=== PATIENT | female | born 1935 | race Caucasian/White ===

== ENCOUNTER → 2018-02-09 07:54 | Outpatient (CLI) | payer MEDICARE, SELFPAY ==
[2018-02-09 08:43] LABS: Hemoglobin A1c 6.1 % (4.2-6.3)
[2018-02-09 08:51] LABS: AST(SGOT) 18 U/L (15-37); Alanine Aminotransfer ALT/SGPT 24 U/L (13-56); Albumin, Serum 3.7 g/dL (3.2-5.0); Alkaline Phosphatase 59 U/L (45-117); Anion Gap 6 (5-15); BUN 10 mg/dL (7-18); BUN/Creat Ratio 16.3 RATIO (10-20); Calcium,Total 8.8 mg/dL (8.5-10.1); Chloride 101 mmol/L (98-107); Creatinine, Serum 0.61 mg/dL (0.55-1.02); EST Glomerular Filtration Rate 99 mL/min (>60); Est Glom Filt Rate - Afr Amer 120 mL/min (>60); Globulin 3.7 g/dL (2.2-4.2); Glucose 104 mg/dL (74-106); Protein, Total 7.4 g/dL (6.4-8.2); Sodium Level 137 mmol/L (136-145)
== END ==
PROVIDERS: Family Provider Internal Medicine; PCP Internal Medicine; Visit Provider Internal Medicine
DX: E11.9 Type 2 diabetes mellitus without complications (principal); E78.5 Hyperlipidemia, unspecified
CPT/HCPCS: 36415; 80053; 83036

== ENCOUNTER → 2018-05-21 10:28 | Outpatient (CLI) | payer MEDICARE, SELFPAY ==
[2018-05-21 11:23] LABS: Microalbumin,Random Urine 10.9 mg/L (NO RANGE EST.); Microalbumin:Creatinine Ratio 50.9 mg/g CRE (<30 mg/g CRE)
[2018-05-21 11:30] LABS: Hemoglobin A1c 6.2 % (4.2-6.3)
== END ==
PROVIDERS: Family Provider Internal Medicine; PCP Internal Medicine; Visit Provider Nurse Practitioner Family
DX: E11.9 Type 2 diabetes mellitus without complications (principal)
CPT/HCPCS: 36415; 82043; 82570; 83036

== ENCOUNTER → 2018-10-01 07:44 | Outpatient (CLI) | payer MEDICARE, SELFPAY ==
[2018-07-02 10:40] VITALS: BMI 29.7
[2018-10-01 09:04] LABS: Hemoglobin A1c 6.4 % (4.2-6.3)
[2018-10-01 09:14] LABS: ALB/GLOB Ratio 1.1 RATIO (0.9-2.4); AST(SGOT) 16 U/L (15-37); Alanine Aminotransfer ALT/SGPT 21 U/L (13-56); Albumin, Serum 3.7 g/dL (3.2-5.0); Alkaline Phosphatase 64 U/L (45-117); Anion Gap 11 (5-15); BUN 16 mg/dL (7-18); BUN/Creat Ratio 21.1 RATIO (10-20); Calcium,Total 8.7 mg/dL (8.5-10.1); Chloride 102 mmol/L (98-107); Cholesterol 157 mg/dL (200); Creatinine, Serum 0.76 mg/dL (0.55-1.02); EST Glomerular Filtration Rate 78 mL/min (>60); Est Glom Filt Rate - Afr Amer 94 mL/min (>60); Globulin 3.4 g/dL (2.2-4.2); Glucose 89 mg/dL (74-106); High Density Lipoprotein 47 mg/dL; Potassium 3.8 mmol/L (3.5-5.1); Protein, Total 7.1 g/dL (6.4-8.2); Sodium Level 140 mmol/L (136-145); Triglycerides 84 mg/dL; Very Low Density Lipoprotein 17 mg/dL (5-40)
== END ==
PROVIDERS: Family Provider Internal Medicine; PCP Internal Medicine; Referring Provider Internal Medicine; Visit Provider Internal Medicine
DX: E11.9 Type 2 diabetes mellitus without complications (principal); I25.10 Atherosclerotic heart disease of native coronary artery without angina pectoris
CPT/HCPCS: 36415; 80053; 80061; 83036

== ENCOUNTER → 2019-03-27 | Outpatient (CLI) | payer MEDICARE, SELFPAY ==
[2019-03-25 09:47] VITALS: BMI 27.8
--- NOTE | 2019-03-27 08:56 | RAD_ITS ---
STUDY: X-RAY CHEST REASON FOR EXAM: Female, 83 years old. COPD. TECHNIQUE: Single AP portable view of the chest. COMPARISON: Comparison is made with prior study dated September 23, 2017. FINDINGS: Hyperinflation. Mild increased linear markings at the lung bases slightly more prominent on the left side suggestive of a linear atelectasis and/or scarring. Blunting of the left costophrenic angle. Normal size heart. Normal mediastinum and ronda. Normal visualized pulmonary arteries. There is atherosclerotic calcification of the aortic arch with tortuosity. There are diffuse degenerative changes of the visualized thoracic spine. Mild dextroscoliosis. Normal visualized ribs, clavicles, and shoulders. There is no demonstrated abnormality of the visualized soft tissue structures of the upper abdomen. RAD/Chest 1 View IMPRESSION: Hyperinflation. Mild degree of increased markings at the lung bases slightly more prominent on the left side suggestive of linear atelectasis and/or scarring. Electronically Signed: Andrey Spangler, at 15:39 EDT , Service support ,
--- NOTE | 2019-03-27 15:17 | PFTCOMP ---
COMPLETE PULMONARY FUNCTION TEST INTERPRETATION Brief HPI: Patient is an 83 year old female, currently under the care of Dr. Jefferson, who presents to [facility] for complete pulmonary function tests secondary to diagnosis of COPD. Respiratory therapist reports good effort and reproducible results. Interpretation: Forced expiration spirometry shows a mild large airways obstructive ventilatory defect with an FEV1 of 101% predicted. There is no significant bronchodilator response by strict ATS criteria. Spirograms are of good quality and plateau slowly, indicating slowly emptying areas of the lungs. The respiratory flow volume loop shows decreased expiratory flow rates at all lung volumes consistent with airway obstruction. Lung volumes by body plethysmography show a normal total lung capacity at 4.04 L, 115% predicted. All other lung volumes are within normal limits. Diffusion capacity by carbon monoxide is normal at 95% predicted. The airway resistance is slightly elevated. No previous pulmonary function tests were available for review. Impression: Irreversible mild large airways obstructive ventilatory defect with preserved diffusion capacity, in a pattern consistent with chronic bronchitis.
== END | disposition home or self-care (01) ==
LOC: PSN 07:46
PROVIDERS: Family Provider Internal Medicine; PCP Internal Medicine; Referring Provider Internal Medicine; Visit Provider Internal Medicine
DX: J44.9 Chronic obstructive pulmonary disease, unspecified (principal)
CPT/HCPCS: 71045; 94060; 94726; 94729

== ENCOUNTER → 2019-07-18 08:50 | Outpatient (CLI) | payer MEDICARE, SELFPAY ==
[2019-07-02 08:41] VITALS: BMI 27.8
--- NOTE | 2019-07-18 08:52 | ECHOD_ITS ---
Reason For Study: HTN Procedure This was a 2D Doppler, Color Flow transthoracic echocardiogram. Exam performed in department. Left Ventricle Normal LV size. Left ventricular systolic function is normal. The estimated ejection fraction is 60 %. Stage 2 diastolic dysfunction. No regional wall motion abnormalities noted. Right Ventricle Normal RV size. Normal systolic function. Atria Normal left atrium. Normal right atrium. Mitral Valve Normal mitral valve. Mild (1+) mitral valve insufficiency. Tricuspid Valve Normal tricuspid valve. Mild tricuspid valve insufficiency. Pulmonary artery systolic pressure is 24 mmHg. Aortic Valve Trisinus/trileaflet aortic valve. Pulmonic Valve Normal pulmonic valve. Great Vessels Calcified aortic root. The pulmonary artery is normal size. Normal inferior vena cava. Pericardium/Pleural No pericardial effusion. MMode/2D Measurements & Calculations LVIDd: 3.7 cm IVSd: 1.1 cm LVOT diam: 2.0 cm LVIDs: 2.4 cm LVPWd: 1.1 cm LVOT area: 3.0 cm2 RVDd: 3.0 cm FS: 35.6 % Ao root diam: 3.0 cm LAV(MOD-bp): 31.4 ml LA A4 area: 12.0 cm2 LAV(MOD-bp) Indexed: 19.9 ml/m2 LAV(MOD-sp2): 37.4 ml LAV(MOD-sp4): 26.2 ml LA dimension(2D): 3.9 cm RA A4 area: 9.7 cm2 Time Measurements MV dec time: 0.33 sec Doppler Measurements & Calculations MV E max tod: 74.8 cm/sec Lat Peak E' Tod: 5.5 cm/sec Med Peak E' Tod: 4.8 cm/sec MV A max tod: 93.7 cm/sec E/E' lat: 13.6 E/E' med: 15.5 MV E/A: 0.80 Ao V2 max: 164.5 cm/sec LV V1 max: 105.6 cm/sec SV(LVOT): 75.2 ml Ao max P.8 mmHg LV V1 max P.5 mmHg Ao V2 mean: 120.3 cm/sec LV V1 mean P.4 mmHg Ao mean P.3 mmHg LV V1 mean: 73.2 cm/sec Ao V2 VTI: 40.2 cm LV V1 VTI: 24.9 cm KALEB(I,D): 1.9 cm2 KALEB(V,D): 1.9 cm2 PA V2 max: 131.8 cm/sec TR max tod: 221.9 cm/sec TR max P.8 mmHg Interpretation Summary Normal LV size. Left ventricular systolic function is normal. The estimated ejection fraction is 60 %. Stage 2 diastolic dysfunction. Ordering Physician: Ora Jefferson Referring Physician: Ora Jefferson Performed By: Karen Kang, YONIS, RVT
== END ==
PROVIDERS: Family Provider Internal Medicine; PCP Internal Medicine; Referring Provider Internal Medicine; Visit Provider Internal Medicine
DX: I25.10 Atherosclerotic heart disease of native coronary artery without angina pectoris (principal); I10 Essential (primary) hypertension
CPT/HCPCS: 93306

== ENCOUNTER → 2019-09-26 11:00 | Outpatient (CLI) | payer MEDICARE, SELFPAY ==
[2019-09-09 14:51] VITALS: BMI 27.8
== END ==
PROVIDERS: Family Provider Internal Medicine; PCP Internal Medicine; Referring Provider Internal Medicine; Visit Provider Internal Medicine
DX: G47.30 Sleep apnea, unspecified (principal)
CPT/HCPCS: 98960; G0463

== ENCOUNTER → 2019-10-07 10:49 | Outpatient (CLI) | payer MEDICARE, SELFPAY ==
[2019-10-07 10:34] VITALS: BMI 27.8
[2019-10-07 12:01] LABS: Absolute Lymphocyte Count 1.38 X10^3/uL (0.83-4.51); Absolute Neutrophil Count 3.6 X10^3/uL (2.0-7.7); Basophil# 0.03 X10^3/uL; Basophil% 0.5 % (0-1); Eosinophil# 0.18 X10^3/uL; Eosinophils% 3.1 % (0-5); Hematocrit 40.3 % (37-47); Hemoglobin 13.1 g/dL (12.0-15.0); Lymphocyte # 1.38 X10^3/ul (4.0); Lymphocyte % 23.9 % (19-41); Mean Corp Hgb Conc 32.5 g/dL (32-36); Mean Corpuscular Hgb 29.6 pg (27.0-32.0); Mean Corpuscular Volume 91.2 fL (81-99); Monocyte# 0.53 X10^3/uL; Monocyte% 9.2 % (0-10); NRBC Flagged by Analyzer 0 % (0-5); Neutrophil # 3.63 X10^3/uL (2.7-7.7); Platelet Count 243 K/mm3 (150-450); RBC Distribution Width CV 13.4 % (11.6-14.6); RBC Distribution Width SD 44.7 fl (35.1-43.9); Red Blood Count 4.42 M/mm3 (4.2-5.4); White Blood Count 5.8 K/mm3 (4.4-11.0)
[2019-10-07 12:19] LABS: ALB/GLOB Ratio 1.1 RATIO (0.9-2.4); AST(SGOT) 19 U/L (15-37); Alanine Aminotransfer ALT/SGPT 34 U/L (13-56); Albumin, Serum 3.7 g/dL (3.2-5.0); Alkaline Phosphatase 62 U/L (45-117); Anion Gap 7 (5-15); BUN 13 mg/dL (7-18); BUN/Creat Ratio 17.5 RATIO (10-20); Chloride 100 mmol/L (98-107); Cholesterol 169 mg/dL (200); Creatinine, Serum 0.74 mg/dL (0.55-1.02); EST Glomerular Filtration Rate 79 mL/min (>60); Est Glom Filt Rate - Afr Amer 96 mL/min (>60); Globulin 3.3 g/dL (2.2-4.2); Glucose 93 mg/dL (74-106); Hemoglobin A1c 7.4 % (4.2-6.3); High Density Lipoprotein 59 mg/dL; Potassium 4.3 mmol/L (3.5-5.1); Sodium Level 137 mmol/L (136-145); Triglycerides 118 mg/dL; Very Low Density Lipoprotein 24 mg/dL (5-40)
[2019-10-07 12:41] LABS: Microalbumin,Random Urine 26.3 mg/L (NO RANGE EST.); Microalbumin:Creatinine Ratio 23.1 mg/g CRE (<30 mg/g CRE)
== END ==
PROVIDERS: Family Provider Internal Medicine; PCP Internal Medicine; Visit Provider Internal Medicine
DX: E11.9 Type 2 diabetes mellitus without complications (principal); I10 Essential (primary) hypertension
CPT/HCPCS: 36415; 80053; 80061; 82043; 82570; 83036; 85025

== ENCOUNTER → 2020-01-14 15:06 | Outpatient (CLI) | payer MEDICARE, SELFPAY ==
[2019-10-07 10:34] VITALS: BMI 27.8
[2020-01-14 16:54] LABS: Absolute Neutrophil Count 5.5 X10^3/uL (2.0-7.7); Basophil# 0.04 X10^3/uL; Basophil% 0.5 % (0-1); Eosinophil# 0.06 X10^3/uL; Eosinophils% 0.8 % (0-5); Hematocrit 42.4 % (37-47); Lymphocyte % 20.6 % (19-41); Mean Corpuscular Hgb 29.9 pg (27.0-32.0); Mean Corpuscular Volume 90.4 fL (81-99); Mean Platelet Vol. 8.5 fl (6.2-12.0); Monocyte# 0.58 X10^3/uL; Monocyte% 7.5 % (0-10); NRBC Flagged by Analyzer 0 % (0-5); Neutrophil # 5.47 X10^3/uL (2.7-7.7); Neutrophil % 70.2 % (47-70); Platelet Count 296 K/mm3 (150-450); RBC Distribution Width CV 12.9 % (11.6-14.6); RBC Distribution Width SD 42.6 fl (35.1-43.9); Red Blood Count 4.69 M/mm3 (4.2-5.4); White Blood Count 7.8 K/mm3 (4.4-11.0)
[2020-01-14 17:22] LABS: ALB/GLOB Ratio 1.1 RATIO (0.9-2.4); AST(SGOT) 21 U/L (15-37); Alanine Aminotransfer ALT/SGPT 36 U/L (13-56); Albumin, Serum 3.9 g/dL (3.2-5.0); Alkaline Phosphatase 59 U/L (45-117); Anion Gap 7 (5-15); BUN 22 mg/dL (7-18); BUN/Creat Ratio 34.9 RATIO (10-20); Calcium,Total 9.3 mg/dL (8.5-10.1); Chloride 97 mmol/L (98-107); Creatinine, Serum 0.63 mg/dL (0.55-1.02); EST Glomerular Filtration Rate 96 mL/min (>60); Est Glom Filt Rate - Afr Amer 116 mL/min (>60); Globulin 3.5 g/dL (2.2-4.2); Glucose 137 mg/dL (74-106); Potassium 3.7 mmol/L (3.5-5.1); Protein, Total 7.4 g/dL (6.4-8.2); Sodium Level 134 mmol/L (136-145)
[2020-01-14 17:30] LABS: Hemoglobin A1c 6.7 % (4.2-6.3)
== END ==
PROVIDERS: PCP Internal Medicine; Referring Provider Internal Medicine; Visit Provider Internal Medicine
DX: E11.9 Type 2 diabetes mellitus without complications (principal); G47.30 Sleep apnea, unspecified
CPT/HCPCS: 36415; 80053; 83036; 85025

== ENCOUNTER → 2020-04-20 | Outpatient (CLI) | payer MEDICARE, SELFPAY ==
[2020-04-15 09:16] VITALS: BMI 27.8
--- NOTE | 2020-04-20 09:00 | EKG12_ITS ---
Test Reason : SOB Blood Pressure : / mmHG Vent. Rate : 062 BPM Atrial Rate : 062 BPM P-R Int : 186 ms QRS Dur : 092 ms QT Int : 406 ms P-R-T Axes : 064 001 073 degrees QTc Int : 412 ms Normal sinus rhythm Normal ECG Confirmed by PETER DALEY, JEFF ([id number]), editor news RAMAKRISHNA KWONG ([id number]) on 04/21/2020 10:07:51 AM Referred By: Ora Jefferson Confirmed By:JEFF GREEN MD
== END | disposition home or self-care (01) ==
LOC: PSN 09:00
PROVIDERS: PCP Internal Medicine; Referring Provider Internal Medicine; Visit Provider Internal Medicine
DX: I10 Essential (primary) hypertension (principal); I25.10 Atherosclerotic heart disease of native coronary artery without angina pectoris
CPT/HCPCS: 93005

== ENCOUNTER → 2020-04-24 15:01 | Outpatient (CLI) | payer MEDICARE, SELFPAY ==
[2020-04-24 14:26] VITALS: BMI 29.9
[2020-04-24 17:22] LABS: Anion Gap 5 (5-15); BUN 14 mg/dL (7-18); BUN/Creat Ratio 24.5 RATIO (10-20); Calcium,Total 9.4 mg/dL (8.5-10.1); Chloride 102 mmol/L (98-107); Creatinine, Serum 0.57 mg/dL (0.55-1.02); EST Glomerular Filtration Rate 107 mL/min (>60); Est Glom Filt Rate - Afr Amer 130 mL/min (>60); Glucose 132 mg/dL (74-106); Sodium Level 138 mmol/L (136-145)
[2020-04-24 18:50] LABS: BNP,B-Type NATRIURETIC PEPTIDE 49.4 pg/mL (0-100)
== END ==
PROVIDERS: PCP Internal Medicine; Referring Provider Internal Medicine Cardiovascular Disease; Visit Provider Internal Medicine Cardiovascular Disease
DX: R06.00 Dyspnea, unspecified (principal)
CPT/HCPCS: 36415; 80048; 83880

== ENCOUNTER → 2020-07-29 09:19 | Outpatient (CLI) | payer MEDICARE, SELFPAY ==
[2020-07-15 10:06] VITALS: BMI 29.7
--- NOTE | 2020-07-29 09:27 | BD_ITS ---
STUDY: DUAL ENERGY X-RAY ABSORPTIOMETRY / DXA REASON FOR EXAM: Female, 84 years old. 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 COMPARISON: None. FINDINGS: Lumbar Spine (L1-L4): g/cm2 (1.242) / T-score (0.3) / Z-score (2.2) Findings are suggestive of normal bone density with a low fracture risk. Left Femur Total: g/cm2 (0.898) / T-score (-0.9) / Z-score (1.3) Left Femoral Neck: g/cm2 (0.868) / T-score (-1.2) / Z-score (1.1) Right Femur Total: g/cm2 (0.883) / T-score (-1.0) / Z-score (1.2) Right Femoral Neck: g/cm2 (0.783) / T-score (-1.8) / Z-score (0.5) BD/Dexa Bone Density Study IMPRESSION: The patient is considered osteopenic as outlined below according to World Jamin Organization (WHO) criteria with a moderate fracture risk. Reference Information: The T-score is the number of standard deviations above or below the standard which is normal for young adults at their peak bone mineral density. The World Health Organization (WHO) interprets the T-scores as follows: Above -1 Normal bone density Between -1 and -2.5 Osteopenia Equal to / or below -2.5 Osteoporosis As a practical clinical guideline, osteopenia may be graded as follows: Mild -1 through -1.5 Moderate -1.6 through -2.0 Severe -2.1 through -2.4 The Z-score is the number of standard deviations above or below age-matched controls. A Z-score of less than -1.5 would be considered abnormal. References: 1. NIH Osteoporosis and Related Bone Diseases http://www.osteo.org 2. International Society for Clinical Densitometry http://www.iscd.org 3. National Osteoporosis Foundation http://www.nof.org Electronically Signed: Andrey Spangler, at 13:45 EDT , Service support ,
== END ==
PROVIDERS: PCP Internal Medicine; Referring Provider Internal Medicine; Visit Provider Internal Medicine
DX: Z78.0 Asymptomatic menopausal state (principal)
CPT/HCPCS: 77080

== ENCOUNTER → 2020-10-14 11:01 | Outpatient (CLI) | payer MEDICARE, SELFPAY ==
[2020-10-14 10:30] VITALS: BMI 32.0
[2020-10-14 13:18] LABS: Anion Gap 6 (5-15); BUN 14 mg/dL (7-18); BUN/Creat Ratio 21.6 RATIO (10-20); Calcium,Total 9.7 mg/dL (8.5-10.1); Chloride 100 mmol/L (98-107); Cholesterol 176 mg/dL (200); Creatinine, Serum 0.65 mg/dL (0.55-1.02); EST Glomerular Filtration Rate 93 mL/min (>60); Est Glom Filt Rate - Afr Amer 112 mL/min (>60); Glucose 122 mg/dL (74-106); High Density Lipoprotein 57 mg/dL; Potassium 4.2 mmol/L (3.5-5.1); Sodium Level 135 mmol/L (136-145); Triglycerides 179 mg/dL; Very Low Density Lipoprotein 36 mg/dL (5-40)
== END ==
PROVIDERS: PCP Internal Medicine; Referring Provider Internal Medicine; Visit Provider Internal Medicine
DX: I10 Essential (primary) hypertension (principal); I25.10 Atherosclerotic heart disease of native coronary artery without angina pectoris
CPT/HCPCS: 36415; 80048; 80061

== ENCOUNTER → 2021-01-12 11:27 | Outpatient (CLI) | payer MEDICARE, SELFPAY ==
[2021-01-12 10:50] VITALS: BMI 32.2
[2021-01-12 15:02] LABS: Absolute Lymphocyte Count 1.64 X10^3/uL (0.83-4.51); Absolute Neutrophil Count 6.9 X10^3/uL (2.0-7.7); Basophil# 0.05 X10^3/uL; Basophil% 0.5 % (0-1); Eosinophils% 2.1 % (0-5); Hematocrit 43.9 % (37-47); Hemoglobin 14.4 g/dL (12.0-15.0); Lymphocyte # 1.64 X10^3/ul (4.0); Lymphocyte % 17.4 % (19-41); Mean Corp Hgb Conc 32.8 g/dL (32-36); Mean Corpuscular Hgb 29.7 pg (27.0-32.0); Mean Corpuscular Volume 90.5 fL (81-99); Mean Platelet Vol. 8.8 fl (6.2-12.0); Monocyte# 0.58 X10^3/uL; Monocyte% 6.2 % (0-10); NRBC Flagged by Analyzer 0 % (0-5); Neutrophil % 73.5 % (47-70); Platelet Count 336 K/mm3 (150-450); RBC Distribution Width CV 12.8 % (11.6-14.6); RBC Distribution Width SD 42.3 fl (35.1-43.9); Red Blood Count 4.85 M/mm3 (4.2-5.4); White Blood Count 9.4 K/mm3 (4.4-11.0)
[2021-01-12 15:31] LABS: Microalbumin,Random Urine 24.5 mg/L (NO RANGE EST.); Microalbumin:Creatinine Ratio 74.7 mg/g CRE (<30 mg/g CRE)
[2021-01-12 15:36] LABS: ALB/GLOB Ratio 1.1 RATIO (0.9-2.4); AST(SGOT) 26 U/L (15-37); Alanine Aminotransfer ALT/SGPT 44 U/L (13-56); Albumin, Serum 4.2 g/dL (3.2-5.0); Alkaline Phosphatase 64 U/L (45-117); Anion Gap 8 (5-15); BUN 15 mg/dL (7-18); BUN/Creat Ratio 21.9 RATIO (10-20); Calcium,Total 9.5 mg/dL (8.5-10.1); Chloride 98 mmol/L (98-107); Creatinine, Serum 0.68 mg/dL (0.55-1.02); EST Glomerular Filtration Rate 87 mL/min (>60); Est Glom Filt Rate - Afr Amer 105 mL/min (>60); Globulin 3.8 g/dL (2.2-4.2); Glucose 118 mg/dL (74-106); Potassium 3.8 mmol/L (3.5-5.1); Sodium Level 133 mmol/L (136-145)
== END ==
PROVIDERS: PCP Internal Medicine; Visit Provider Internal Medicine
DX: E11.9 Type 2 diabetes mellitus without complications (principal)
CPT/HCPCS: 36415; 80053; 82043; 82570; 85025

== ENCOUNTER → 2021-04-26 09:45 | Outpatient (CLI) | payer MEDICARE, SELFPAY ==
[2021-04-26 09:14] VITALS: BMI 32.2
[2021-04-26 12:52] LABS: ALB/GLOB Ratio 1.1 RATIO (0.9-2.4); AST(SGOT) 25 U/L (15-37); Alanine Aminotransfer ALT/SGPT 33 U/L (13-56); Albumin, Serum 3.9 g/dL (3.2-5.0); Alkaline Phosphatase 71 U/L (45-117); Anion Gap 7 (5-15); BUN 16 mg/dL (7-18); BUN/Creat Ratio 24.5 RATIO (10-20); Calcium,Total 9.4 mg/dL (8.5-10.1); Chloride 101 mmol/L (98-107); Creatinine, Serum 0.65 mg/dL (0.55-1.02); EST Glomerular Filtration Rate 92 mL/min (>60); Est Glom Filt Rate - Afr Amer 111 mL/min (>60); Globulin 3.6 g/dL (2.2-4.2); Glucose 117 mg/dL (74-106); Potassium 4.4 mmol/L (3.5-5.1); Protein, Total 7.5 g/dL (6.4-8.2); Sodium Level 135 mmol/L (136-145)
== END ==
PROVIDERS: PCP Internal Medicine; Referring Provider Internal Medicine; Visit Provider Internal Medicine
DX: E11.9 Type 2 diabetes mellitus without complications (principal); I10 Essential (primary) hypertension
CPT/HCPCS: 36415; 80053

== ENCOUNTER → 2021-06-15 12:13 | Outpatient (CLI) | payer MEDICARE, SELFPAY ==
[2021-06-15 11:33] VITALS: BMI 32.0
--- NOTE | 2021-06-15 12:14 | RAD_ITS ---
EXAM DESCRIPTION: PA and lateral CHEST CLINICAL HISTORY: 85 years Female, [place] COMPARISON: Previous chest obtained on 03/27/2019 FINDINGS: Mild dextroscoliosis is noted involving the lower thoracic spine. The rest of the thorax is intact. The heart and mediastinum appear to be within normal limits. The lungs appear to be well areated without evidence of pneumonic consolidation or pleural effusion. RAD/Chest PA and Lateral IMPRESSION: No acute pathology.. Electronically Signed: Gustavo Almeida DO at 8:43 EDT Tel , Service support ,
[2021-06-15 13:33] LABS: Hematocrit 44.2 % (37-47); Hemoglobin 14.6 g/dL (12.0-15.0); Mean Corpuscular Hgb 29.8 pg (27.0-32.0); Mean Corpuscular Volume 90.2 fL (81-99); Mean Platelet Vol. 8.7 fl (6.2-12.0); Platelet Count 382 K/mm3 (150-450); RBC Distribution Width CV 13.1 % (11.6-14.6); RBC Distribution Width SD 42.9 fl (35.1-43.9)
[2021-06-15 13:45] LABS: Anion Gap 6 (5-15); BUN 15 mg/dL (7-18); BUN/Creat Ratio 21.9 RATIO (10-20); Calcium,Total 9.3 mg/dL (8.5-10.1); Chloride 97 mmol/L (98-107); Creatinine, Serum 0.68 mg/dL (0.55-1.02); EST Glomerular Filtration Rate 87 mL/min (>60); Est Glom Filt Rate - Afr Amer 105 mL/min (>60); Glucose 117 mg/dL (74-106); Potassium 3.8 mmol/L (3.5-5.1); Sodium Level 132 mmol/L (136-145)
[2021-06-15 13:46] LABS: BNP,B-Type NATRIURETIC PEPTIDE 39.2 pg/mL (0-100)
== END ==
PROVIDERS: PCP Internal Medicine; Referring Provider Physician Assistant Medical; Visit Provider Physician Assistant Medical
DX: R06.00 Dyspnea, unspecified (principal); E78.5 Hyperlipidemia, unspecified; I10 Essential (primary) hypertension; I25.10 Atherosclerotic heart disease of native coronary artery without angina pectoris; R60.9 Edema, unspecified
CPT/HCPCS: 36415; 71046; 80048; 83880; 85027

== ENCOUNTER → 2021-07-01 06:41 | Outpatient (CLI) | payer MEDICARE, SELFPAY ==
[2021-06-15 11:33] VITALS: BMI 32.0
--- NOTE | 2021-07-01 16:09 | STRESSREP_ITS ---
Stress Test Report Pharmacologic myocardial perfusion stress test. 85-year-old lady with a history of coronary artery disease dyspnea on exertion. Status post multiple stenting procedures. Stress protocol: Resting EKG demonstrates normal sinus rhythm with a rate of 61 bpm normal intervals are noted resting blood pressure is 140/72 mmHg. 0.4 mg of regadenoso n was infused per usual protocol followed by rapid venous saline flush injection continuous EKG monitoring was performed. The maximum heart rate attained was 81 bpm which was 59% of max infected heart rate the maximum workload attained was 1 metabolic equivalent. At rest there were no ST or T wave changes noted to suggest abnormal flow reserve and at peak infusion nonspecific ST changes were noted with did not meet the criteria for ischemia. No clinical angina was noted. Myocardial perfusion protocol. 11.4 mCi of technetium 99m sestamibi was injected at rest. 0.4 mg of regadenoson was infused. Protocol peak infusion 35.2 mCi of technetium 99m sestamibi was injected stress images were obtained stress and rest images were reconstructed and compared in the short axis vertical long horizontal long axis. Gated images were also obtained for Perfusion SPECT analysis: Review of the stress images demonstrate normal uptake of tracer noted in all areas of the myocardium the resting images similarly demonstrate normal uptake of tracer noted in all areas of the myocardium. The estimated ejection fraction is 83%. Conclusion: Normal pharmacologic myocardial perfusion stress test. Preserved ejection fraction.
== END ==
PROVIDERS: PCP Internal Medicine; Referring Provider Physician Assistant Medical; Visit Provider Physician Assistant Medical
DX: R06.00 Dyspnea, unspecified (principal); R60.9 Edema, unspecified; E78.5 Hyperlipidemia, unspecified; I10 Essential (primary) hypertension; I25.10 Atherosclerotic heart disease of native coronary artery without angina pectoris
CPT/HCPCS: 78452; 93017; A9500; A4216; J2785

== ENCOUNTER → 2021-08-09 | Outpatient (CLI) | payer MEDICARE, SELFPAY | END | disposition home or self-care (01) | LOC: LABSPEC 16:24 | PROVIDERS: PCP Internal Medicine; Referring Provider Physician Assistant Surgical; Visit Provider Physician Assistant Surgical | DX: Z11.52 Encounter for screening for COVID-19 (principal) | CPT/HCPCS: 87635; U0005; U0003 ==

== ENCOUNTER 2021-10-29 08:28 | Inpatient (IN) | payer MEDICARE, SELFPAY ==
[2021-10-29] VITALS (11 sets, daily range): BP systolic 130–252; BP diastolic 43–87; PULSE 58–72; RESP 13–18; TEMP 36.6–36.7; O2SAT 95–100; BMI 29.2; BMI 29.6
--- NOTE | 2021-10-29 08:48 | EKG12_ITS ---
Test Reason : AM EKG Blood Pressure : / mmHG Vent. Rate : 062 BPM Atrial Rate : 062 BPM P-R Int : 186 ms QRS Dur : 088 ms QT Int : 430 ms P-R-T Axes : 056 -06 076 degrees QTc Int : 436 ms Normal sinus rhythm Normal ECG When compared with ECG of 31-OCT-2021 15:48, MANUAL COMPARISON REQUIRED, DATA IS UNCONFIRMED Confirmed by PETER DALEY, JEFF ([id number]), videotape editor JOANNA KENNEDY ([id number]) on 11/02/2021 12:41:11 PM Referred By: LEXY Confirmed By:JEFF GREEN MD
--- NOTE | 2021-10-29 08:48 | CT_ITS ---
STUDY: CT BRAIN WITHOUT CONTRAST REASON FOR EXAM: Female, 85 years old. htn, hemorrhage RADIATION DOSAGE (If Supplied By Facility): CTDIvol = ( 44.99 ) mGy, DLP = ( 779.24 ) mGycm TECHNIQUE: Transaxial CT imaging of the brain was performed without administration of intravenous contrast material. Individualized dose optimization techniques were used for this CT. COMPARISON: Comparison is made with prior study dated 09/23/2017. FINDINGS: Normal soft tissue structures. There is hyperostosis frontalis internus. There is moderate cerebral atrophy with widening of the extra-axial spaces and ventricular dilatation. There are areas of decreased attenuation within the white matter tracts of the supratentorial brain, consistent with microvascular disease changes. Normal basal ganglia and thalami. Normal brainstem. Normal cerebellum. There is no intracranial hemorrhage. There are no findings of an acute ischemic infarction. Atherosclerotic calcification of the vertebral arteries as well as the cavernous portions of the internal carotid arteries bilaterally. Normal visualized paranasal sinuses. CT/Brain/Head without Contrast IMPRESSION: Chronic involutional changes of the brain. Electronically Signed: Andrey Spangler MD at 10:05 EST , Service support ,
--- NOTE | 2021-10-29 08:50 | EDS_ITS ---
HPI History of Present Illness Chief Complaint: Hypertension Detail of Chief Complaint: High blood pressure, chest discomfort, and headache Informant: patient Narrative Narrative: Patient presents to the emergency department complaint of high blood pressure, headache, and chest discomfort that started this morning around 6 AM when she woke up. Patient checked her blood pressure and noted that it was quite elevated. Normally her blood pressures in the 140 systolic. She did take her lisinopril this morning. Patient describes a chest heaviness or discomfort without radiation. She has history of cardiac stents her last one was about 9 years ago. Patient also complains of a frontal headache that she rates a 3 out of 10. She had nausea but no vomiting. Prior similar symptoms: No PFSH PFSH Medical History Arthritis Atherosclerosis of coronary artery of [place] heart without angina pectoris Back pain Cataracts, bilateral Change in facial mole Chronic bronchitis Chronic bronchitis Chronic sinusitis COPD (chronic obstructive pulmonary disease) Dog scratch Emphysema lung Essential (primary) hypertension GERD (gastroesophageal reflux disease) Herniated disc Hyperlipidemia Leg cramps Obesity Osteoarthritis Osteoporosis Pigmented skin lesion suspicious for malignant neoplasm Rupture herniated disc Sleep apnea Type 2 diabetes mellitus Vertigo Home Medications acetaminophen 325 mg tablet 500 mg PO Q6H PRN 11/16/17 [History Last Taken Unknown] one touch ultra lancets MISCELLANEOUS 11/16/17 [History Last Taken Unknown] nitroglycerin 0.4 mg sublingual tablet 0.4 mg SUBLINGUAL Q5M PRN #25 tab 04/25/18 [Rx Last Taken Unknown] aspirin 81 mg tablet,delayed release 81 mg PO DAILY 03/01/19 [History Last Taken Unknown] albuterol sulfate 2.5 mg INHALATION Q8H PRN #180 ml 09/13/19 [Rx Last Taken Unknown] Insulin syringes #200 ea 01/14/20 [Rx Last Taken Unknown] multivitamin 1 tab PO DAILY 01/14/20 [History Last Taken Unknown] lisinopril 20 mg tablet 20 mg PO BID #180 tab 10/14/20 [Rx Last Taken Unknown] clopidogrel 75 mg tablet See Rx Instructions .ROUTE .COMPLEX #90 tab 12/15/20 [Rx Last Taken Unknown] blood sugar diagnostic #100 strip 12/31/20 [Rx Last Taken Unknown] albuterol sulfate 90 mcg/actuation aerosol inhaler 1 puff INHALATION Q6H PRN #8.5 g 02/18/21 [Rx Last Taken Unknown] budesonide-formoterol HFA 160 mcg-4.5 mcg/actuation aerosol inhaler 2 puff INHALATION BID #10.2 gm 02/18/21 [Rx Last Taken Unknown] meclizine 12.5 mg tablet 12.5 mg PO BID-TID PRN #60 tab 02/18/21 [Rx Last Taken Unknown] insulin glargine 100 unit/mL subcutaneous solution See Rx Instructions .ROUTE .COMPLEX #10 ml 02/19/21 [Rx Last Taken Unknown] magnesium oxide 400 mg PO DAILY 04/26/21 [History Last Taken Unknown] fluticasone propionate 50 mcg/actuation nasal spray,suspension 1 spray INTRANASAL BID PRN #16 g 08/09/21 [Rx Last Taken Unknown] metoprolol succinate 50 mg tablet,extended release 24 hr 50 mg PO DAILY #90 tab 09/13/21 [Rx Last Taken Unknown] lovastatin 40 mg tablet 80 mg PO DAILY #180 tab 09/17/21 [Rx Last Taken Unknown] amlodipine 10 mg tablet 5 mg PO DAILY #90 tab 09/22/21 [Rx Last Taken Unknown] Allergy/AdvReac Type Severity Reaction Status Date / Time codeine AdvReac Nausea/Vom/ Verified 10/29/21 08:31 Diarrhea Family History Sister Cancer passed of lung CA at 45 Grandmother Diabetes Heart disease CVA (cerebral vascular accident) Mother Diabetes Heart disease Brother Heart disease Myocardial infarction Daughter Arthritis Son Heart disease Surgical History History of History of carpal tunnel release History of carpal tunnel surgery history of cataracts removal History of section History of coronary artery stent placement (02/29/16) Status post trigger finger release Status post trigger finger release Social History Smoking Status: Former smoker how long ago did patient quit smokin alcohol intake: never substance use type: does not use what type of physical activity do you participate in: walking frequency: daily ROS ROS ED Constitutional Constitutional ED: Reports systems reviewed and no addt'l complaints, except as documented; Denies body ache(s), change in weight or chills Eyes Eyes: Denies acute decrease in peripheral vision, change in vision, double vision or loss of vision ENT ENT ED: Reports none; Denies ear pain, lip swelling, loss taste/smell, neck pain, otalgia or sore throat Cardiovascular Cardiovascular: Reports none and chest pain; Denies abdominal pain, chest pain with activity, leg edema, lightheadedness, palpitations, rapid heart rate or syncope Respiratory/Chest Respiratory/Chest: Reports none; Denies change in mental status, dry cough, dyspnea, hemoptysis, shortness of breath at rest or shortness of breath with exertion Gastrointestinal Gastrointestinal: Reports none, nausea and other; Denies abdominal pain, change in stool character, diarrhea, hematemesis, hematochezia, melena, rectal bleeding or vomiting Genitourinary Genitourinary ED: Reports none; Denies abdominal discomfort, anuria, dysuria, genital pain or polyuria Musculoskeletal Musculoskeletal: Reports none; Denies arthralgias, back pain, difficulty walking, extremity pain, muscle weakness or myalgias Integumentary Reports none; Denies abscess or rash Neurologic Neurologic: Reports none and other Details: Headache ; Denies abnormal gait, confusion, focal weakness, frequent falls, headache(s), loss of vision, nu mbness, paresthesias, radicular pain, vertigo or weakness Psychiatric Psychiatric: Reports systems reviewed and no addt'l complaints, except as documented and none; Denies behavioral changes, confusion, difficulty concentrating, hallucinations, suicidal ideation, tactile hallucinations or visual hallucinations Endocrine Endocrinology: Denies none, cold intolerance, excessive sweating, fatigue or heat intolerance Hematologic/Lymphatic Hematologic/Lymphatic: Reports none; Denies anemia, easy bleeding or easy bruising Allergic/Immunologic Allergic/Immunologic ED: Denies as per HPI, none, lip swelling, mouth swelling, throat swelling, tongue swelling or hives EXAM Physical Exam Const Vital Signs: 10/29/21 08:29 10/29/21 08:49 10/29/21 08:52 Temperature 960 F H Temperature Source Temporal Pulse Rate 66 Respiratory Rate 16 Respiratory Pattern Normal Blood Pressure 252/87 H Blood Pressure Mean 142 Pulse Ox 99 Oxygen Delivery Method Room Air Room Air 10/29/21 09:09 10/29/21 09:15 10/29/21 09:22 Temperature Temperature Source Pulse Rate 63 66 Respiratory Rate Respiratory Pattern Blood Pressure 195/74 H 195/74 H 143/58 H Blood Pressure Mean 114 Pulse Ox Oxygen Delivery Method 10/29/21 11:23 Temperature Temperature Source Pulse Rate 62 Respiratory Rate 13 Respiratory Pattern Blood Pressure 151/49 H Blood Pressure Mean 83 Pulse Ox 99 Oxygen Delivery Method Room Air Positive well nourished and well developed General Appearance ED: well developed and NAD HEENT Reports TM's clear and moist mucous membranes normocephalic and atraumatic; Negative for trauma or tenderness Tympanic Membrane ED: Yes TM's clear Eyes PERRL and EOMs intact bilaterally General Eye ED: Negative for pale conjunctiva or scleral icterus Neck no lymphadenopathy, supple and no JVD General: Negative for tenderness Chest Wall inspection of chest normal and palpation of chest normal Chest: Negative for tenderness Resp normal respiratory effort and clear to auscultation bilaterally Effort and Inspection: Negative for respiratory distress or pain with movement Auscultation: Negative for rhonchi, wheezes or diminished lung sounds Cardio regular rate, regular rhythm, S1 normal heart sound, S2 normal heart sound and no murmurs Peripheral Pulses: pulses 2+ throughout GI normal to inspection, nondistended, normoactive bowel sounds, soft to palpation, non-tender, non-distended and no masses Back/Spine no CVA tenderness and no thoracic nor lumbar tenderness Extremity normal to inspection General Extremety ED: Negative for edema General Extremity: Negative for edema Neuro oriented x3, CN's II-XII intact bilaterally, no sensory deficits noted and gait normal Sensorium / Orientation: awake, alert, oriented to person, oriented to place and oriented to time Motor Exam: strength 5/5 throughout and strength abnormal Psych mental status grossly normal Skin no rashes or lesions noted and no wounds MDM MDM MDM Narrative Medical decision making narrative: IV line established on arrival. Patient placed on a filler spreader. Patient was given sublingual nitro and that resolved her pain. Her blood pressure also improved. Case discussed with [employer] on-call Dr. Juma Bland who recommended admission for further evaluation of her chest pain and hypertensive urgency. Patient had a stress test about 2 months ago that was unremarkable and this was a chemical stress. Case discussed with hospitalist to evaluate patient for admission. Patient's heart score is a 6. Lab Data Attestation: I reviewed the patient's lab results. Labs: Laboratory Results - last 24 hr 10/29/21 10/29/21 09:03 09:03 WBC 7.5 RBC 4.52 Hgb 13.6 Hct 40.1 MCV 88.7 MCH 30.1 MCHC 33.9 RDW Std Deviation 41.1 RDW Coeff of [place] 12.6 Plt Count 295 MPV 8.6 Immature Gran % (Auto) 0.400 Neut % (Auto) 72.2 H Lymph % (Auto) 16.0 L [place] % (Auto) 8.2 Eos % (Auto) 2.4 Baso % (Auto) 0.8 Absolute Neuts (auto) 5.4 Absolute Lymphs (auto) 1.20 Nucleated RBC % 0 Sodium 131 L Potassium 4.0 Chloride 97 L Carbon Dioxide 29.0 Anion Gap 5 BUN 14 Creatinine 0.66 Estim Creat Clear Calc 43.48 Est GFR (MDRD) Af Amer 109 Est GFR (MDRD) Non-Af 90 BUN/Creatinine Ratio 21.1 H Glucose 158 H Calcium 9.3 Troponin I High Sens 6 Radiography Chest X-Ray - ED: 1 View Diagnostic Testing: Clinical Impression(s) from Imaging Studies Brain CT 10/29/21 08:48 IMPRESSION: Chronic involutional changes of the brain. Electronically Signed: Andrey Spangler MD at 10:05 EST , Service support , Chest X-Ray 10/29/21 09:39 IMPRESSION: Mild degree of persistent increased markings at the lung bases suggestive of right basilar scarring slightly more prominent on the left side. Electronically Signed: Andrey Spangler MD at 10:04 EST , Service support , 1 view chest x-ray obtained interpreted by myself as no acute disease process. Radiology felt there was a bibasilar atelectasis EKG Initial EKG: Attestation: I personally reviewed and interpreted this EKG as follows: Comments: Sinus rhythm with a ventricular rate of [address] changes Discharge Plan Triage Chief Complaint: Hypertension ED Provider: Alonso Estrella Dx/Rx/DC Orders Clinical Impression: Chest pain, Hypertensive urgency Prescriptions: No Action acetaminophen [Tylenol] 325 mg tablet 500 mg PO Q6H PRNRF: 0 one touch ultra lancets miscellaneous RF: 0 nitroglycerin [Nitrostat] 0.4 mg tablet, sublingual 0.4 mg SUBLINGUAL Q5M PRN (Reason: chest pain) Qty: 25 RF: 3 aspirin [Adult Aspirin Regimen] 81 mg tablet,delayed release (DR/EC) 81 mg PO DAILY RF: 0 multivitamin [Daily Multi-Vitamin] Tablet 1 tab PO DAILY RF: 0 (DME) Insulin syringes 0.5ml Qty: 200 RF: 3 clopidogrel 75 mg tablet See Rx Instructions .ROUTE .COMPLEX Qty: 90 RF: 3 lisinopril 20 mg tablet 20 mg PO BID Qty: 180 RF: 3 magnesium oxide 400 mg magnesium capsule 400 mg PO DAILY RF: 0 fluticasone propionate 50 mcg/actuation spray,suspension 1 spray intranasal BID PRN (Reason: allergies, congestion) Qty: 16 RF: 3 amlodipine 10 mg tablet 5 mg PO DAILY Qty: 90 RF: 3 albuterol sulfate 2.5 mg /3 mL (0.083 %) solution for nebulization 2.5 mg INHALATION Q8H PRN (Reason: shortness of breath or wheezing) Qty: 180 RF: 1 (DME) OneTouch Ultra Blue Test Strip Strip See Rx Instructions .ROUTE .COMPLEX Qty: 100 RF: 5 ProAir HFA 90 mcg/actuation HFA aerosol inhaler 1 puff INHALATION Q6H PRN (Reason: shortness of breath or wheezing) Qty: 8.5 RF: 0 budesonide-formoterol [Symbicort] 160-4.5 mcg/actuation HFA aerosol inhaler 2 puff INHALATION BID Qty: 10.2 RF: 2 meclizine 12.5 mg tablet 12.5 mg PO BID-TID PRN (Reason: dizziness) Qty: 60 RF: 2 Lantus U-100 Insulin 100 unit/mL solution See Rx Instructions .ROUTE .COMPLEX Qty: 10 RF: 8 metoprolol succinate 50 mg tablet extended release 24 hr 50 mg PO DAILY Qty: 90 RF: 3 lovastatin 40 mg tablet 80 mg PO DAILY Qty: 180 RF: 3 Primary Care Provider: Ora Jefferson Referrals: Ora Jefferson MD [Primary Care Provider] -
[2021-10-29] MEDS: 0.9% Normal Saline 1,000 ML 150 ML IV (09:09)
[2021-10-29 09:11] LABS: Absolute Neutrophil Count 5.4 X10^3/uL (2.0-7.7); Basophil# 0.06 X10^3/uL; Basophil% 0.8 % (0-1); Eosinophil# 0.18 X10^3/uL; Eosinophils% 2.4 % (0-5); Hematocrit 40.1 % (37-47); Hemoglobin 13.6 g/dL (12.0-15.0); Mean Corp Hgb Conc 33.9 g/dL (32-36); Mean Corpuscular Hgb 30.1 pg (27.0-32.0); Mean Corpuscular Volume 88.7 fL (81-99); Mean Platelet Vol. 8.6 fl (6.2-12.0); Monocyte# 0.61 X10^3/uL; Monocyte% 8.2 % (0-10); NRBC Flagged by Analyzer 0 % (0-5); Neutrophil % 72.2 % (47-70); Platelet Count 295 K/mm3 (150-450); RBC Distribution Width CV 12.6 % (11.6-14.6); RBC Distribution Width SD 41.1 fl (35.1-43.9); Red Blood Count 4.52 M/mm3 (4.2-5.4); White Blood Count 7.5 K/mm3 (4.4-11.0)
[2021-10-29] MEDS: Aspirin 81 MG TAB.CHEW 324 MG PO (09:13)
[2021-10-29] MEDS: Ondansetron 4 MG/2 ML Vial IV ×2 (09:14→16:59)
[2021-10-29] MEDS: Nitroglycerin SL (ED/IMG/CATH) 0.4 MG TABLET SL ×2 (09:15→09:22)
[2021-10-29 09:30] LABS: Anion Gap 5 (5-15); BUN 14 mg/dL (7-18); BUN/Creat Ratio 21.1 RATIO (10-20); Calcium,Total 9.3 mg/dL (8.5-10.1); Chloride 97 mmol/L (98-107); Creatinine, Serum 0.66 mg/dL (0.55-1.02); EST Glomerular Filtration Rate 90 mL/min (>60); Est Glom Filt Rate - Afr Amer 109 mL/min (>60); Estimated Creatinine Clearance 43.48 ml/min; Glucose 158 mg/dL (74-106); Sodium Level 131 mmol/L (136-145); Troponin-I HS 6 pg/mL (3.0-54.0)
--- NOTE | 2021-10-29 09:39 | RAD_ITS ---
STUDY: X-RAY CHEST REASON FOR EXAM: Female, 85 years old. Chest pain TECHNIQUE: Single AP portable view of the chest. COMPARISON: Comparison is made with prior study dated 06/15/2021. FINDINGS: EKG electrodes are seen. Mild increased linear markings at the lung bases slightly more prominent on the left side suggestive of bibasilar scarring. There has been essentially no change. There is no demonstrated pleural abnormality. There is borderline cardiomegaly. Normal mediastinum and ronda. Normal visualized pulmonary arteries. There is atherosclerotic calcification of the aortic arch with tortuosity. There are diffuse degenerative changes of the visualized thoracic spine. Mild dextroscoliosis. Normal visualized ribs, clavicles, and shoulders. There is no demonstrated abnormality of the visualized soft tissue structures of the upper abdomen. RAD/Chest 1 View (Portable) IMPRESSION: Mild degree of persistent increased markings at the lung bases suggestive of right basilar scarring slightly more prominent on the left side. Electronically Signed: Andrey Spangler MD at 10:04 EST , Service support ,
--- NOTE | 2021-10-29 12:41 | PCM.HP.STD ---
HPI - General General Date of Admission: 10/29/21 HPI Narrative GREYSON KELLY, is a 85 F who presents with nausea, palpitations and chest pressure this morning. Patient's blood pressure was noted to be well over 200 systolic. Patient is felt unwell and was sent to the emergency room. In the emergency room, patient's blood pressure was noted to be 252/87. Patient did receive nitroglycerin and her chest pain resolved her blood pressure did improve without any further interventions. Patient had been checking her blood pressure routinely up until recently and had been doing okay at home. Patient has been compliant with her medications and did take her morning medications today. Cardiology was contacted through the emergency room and would see the patient in consultation. Patient's troponins and EKG were unremarkable. [facility] Medical History Arthritis Atherosclerosis of coronary artery of upper [place] heart without angina pectoris Back pain Cataracts, bilateral Change in facial mole Chronic bronchitis Chronic bronchitis Chronic sinusitis COPD (chronic obstructive pulmonary disease) Dog scratch Emphysema lung Essential (primary) hypertension GERD (gastroesophageal reflux disease) Herniated disc Hyperlipidemia Leg cramps Obesity Osteoarthritis Osteoporosis Pigmented skin lesion suspicious for malignant neoplasm Rupture herniated disc Sleep apnea Type 2 diabetes mellitus Vertigo Home Medications acetaminophen 325 mg tablet 500 mg PO Q6H PRN 11/16/17 [History Last Taken Unknown] one touch ultra lancets MISCELLANEOUS 11/16/17 [History Last Taken Unknown] nitroglycerin 0.4 mg sublingual tablet 0.4 mg SUBLINGUAL Q5M PRN #25 tab 04/25/18 [Rx Last Taken Unknown] aspirin 81 mg tablet,delayed release 81 mg PO DAILY 03/01/19 [History Last Taken Unknown] albuterol sulfate 2.5 mg INHALATION Q8H PRN #180 ml 09/13/19 [Rx Last Taken Unknown] Insulin syringes #200 ea 01/14/20 [Rx Last Taken Unknown] multivitamin 1 tab PO DAILY 01/14/20 [History Last Taken Unknown] lisinopril 20 mg tablet 20 mg PO BID #180 tab 10/14/20 [Rx Last Taken Unknown] clopidogrel 75 mg tablet See Rx Instructions .ROUTE .COMPLEX #90 tab 12/15/20 [Rx Last Taken Unknown] blood sugar diagnostic #100 strip 12/31/20 [Rx Last Taken Unknown] albuterol sulfate 90 mcg/actuation aerosol inhaler 1 puff INHALATION Q6H PRN #8.5 g 02/18/21 [Rx Last Taken Unknown] meclizine 12.5 mg tablet 12.5 mg PO BID-TID PRN #60 tab 02/18/21 [Rx Last Taken Unknown] insulin glargine 100 unit/mL subcutaneous solution See Rx Instructions .ROUTE .COMPLEX #10 ml 02/19/21 [Rx Last Taken Unknown] magnesium oxide 400 mg PO DAILY 04/26/21 [History Last Taken Unknown] fluticasone propionate 50 mcg/actuation nasal spray,suspension 1 spray INTRANASAL BID PRN #16 g 08/09/21 [Rx Last Taken Unknown] metoprolol succinate 50 mg tablet,extended release 24 hr 50 mg PO DAILY #90 tab 09/13/21 [Rx Last Taken Unknown] lovastatin 40 mg tablet 80 mg PO DAILY #180 tab 09/17/21 [Rx Last Taken Unknown] Allergy/AdvReac Type Severity Reaction Status Date / Time codeine AdvReac Nausea/Vom/ Verified 10/29/21 08:31 Diarrhea Family History Sister Cancer passed of lung CA at 45 Grandmother Diabetes Heart disease CVA (cerebral vascular accident) Mother Diabetes Heart disease Brother Heart disease Myocardial infarction Daughter Arthritis Son Heart disease Surgical History History of History of carpal tunnel release History of carpal tunnel surgery history of cataracts removal History of section History of coronary artery stent placement (02/29/16) Status post trigger finger release Status post trigger finger release Social History Smoking Status: Former smoker how long ago did patient quit smokin alcohol intake: never substance use type: does not use what type of physical activity do you participate in: walking frequency: daily ROS ROS Narrative All review of systems were negative except as mentioned above in the history of present illness and the other review of systems. Vital Signs Vital Signs Vital Signs: 10/29/21 08:29 10/29/21 08:49 10/29/21 08:52 Temperature 515.5 C H Temperature Source Temporal Pulse Rate 66 Respiratory Rate 16 Respiratory Pattern Normal Blood Pressure 252/87 H Blood Pressure Mean 142 Pulse Ox 99 Oxygen Delivery Method Room Air Room Air 10/29/21 09:09 10/29/21 09:15 10/29/21 09:22 Temperature Temperature Source Pulse Rate 63 66 Respiratory Rate Respiratory Pattern Blood Pressure 195/74 H 195/74 H 143/58 H Blood Pressure Mean 114 Pulse Ox Oxygen Delivery Method 10/29/21 11:23 10/29/21 11:54 Temperature 36.7 C Temperature Source Temporal Pulse Rate 62 58 L Respiratory Rate 13 16 Respiratory Pattern Blood Pressure 151/49 H 151/49 H Blood Pressure Mean 83 83 Pulse Ox 99 97 Oxygen Delivery Method Room Air Room Air Weight Weight: 65.771 kg Body Mass Index (BMI) 29.2 Physical Exam Const alert General Appearance: cooperative HEENT normocephalic and head/scalp atraumatic Neck no lymphadenopathy and supple Resp normal respiratory effort, no retractions, no use of accessory muscles and clear to auscultation bilaterally Cardio regular rate, regular rhythm, S1 normal heart sound and S2 normal heart sound GI normal to inspection, nondistended, normoactive bowel sounds, soft to palpation, non-tender and non-distended Extremity normal to inspection and full ROM Skin no rashes or lesions noted and no wounds Neuro oriented x3 Sensorium / Orientation: awake and alert Psych affect normal Results Lab / Micro Data Attestation: I reviewed the patient's lab results. Result Diagrams: 10/29/21 09:03 10/29/21 09:03 Labs: Laboratory Results - last 24 hr 10/29/21 09:03: WBC 7.5, RBC 4.52, Hgb 13.6, Hct 40.1, MCV 88.7, MCH 30.1, MCHC 33.9, RDW Std Deviation 41.1, RDW Coeff of Elke 12.6, Plt Count 295, MPV 8.6, Immature Gran % (Auto) 0.400, Neut % (Auto) 72.2 H, Lymph % (Auto) 16.0 L, [place]comb % (Auto) 8.2, Eos % (Auto) 2.4, Baso % (Auto) 0.8, Absolute Neuts (auto) 5.4, Absolute Lymphs (auto) 1.20, Nucleated RBC % 0 10/29/21 09:03: Sodium 131 L, Potassium 4.0, Chloride 97 L, Carbon Dioxide 29.0, Anion Gap 5, BUN 14, Creatinine 0.66, Estim Creat Clear Calc 43.48, Est GFR (MDRD) Af Amer 109, Est GFR (MDRD) Non-Af 90, BUN/Creatinine Ratio 21.1 H, Glucose 158 H, Calcium 9.3, Troponin I High Sens 6 EKG Initial EKG: Attestation: I personally reviewed and interpreted this EKG as follows: Prior EKG tracings: available for review EKG Rhythm Intrepretation: Sinus Rhythm Radiology Impression Brain CT 10/29/21 08:48 IMPRESSION: Chronic involutional changes of the brain. Electronically Signed: Andrey Spangler MD at 10:05 EST , Service support , Chest X-Ray 10/29/21 09:39 IMPRESSION: Mild degree of persistent increased markings at the lung bases suggestive of right basilar scarring slightly more prominent on the left side. Electronically Signed: Andrey Spangler MD at 10:04 EST , Service support , Assessment & Plan Assessment/Plan (1) Unstable angina: (2) Hypertensive urgency: PLAN: 1. Unstable angina Chest pain may be related the patient's hypertensive urgency patient does have known coronary artery disease with 6 stents. Most recent stress test from July 01 of this year was negative. Plan is to repeat another stress test Cardiology has been contacted through the emergency room and will be consulted If troponins trend up then stress test may be discontinued 2. Hypertensive urgency Resolved Continue with lisinopril and metoprolol Encourage patient to resume checking her blood pressure daily. Patient has been doing previously but stopped doing it recently 3. Diabetes mellitus type 2 Continue with basal insulin Add sliding scale while she is here 4. VTE prophylaxis: Not indicated at present given her current observation status 5. Coronary artery disease Continue with aspirin, clopidogrel, lisinopril and metoprolol tartrate 6. Status post COVID-19 vaccine and booster Charges/Coding Visit Charges OBSV E&M: 43308 Initial observation care L3
--- NOTE | 2021-10-29 13:08 | EKG12_ITS ---
Test Reason : CP Blood Pressure : / mmHG Vent. Rate : 059 BPM Atrial Rate : 059 BPM P-R Int : 186 ms QRS Dur : 082 ms QT Int : 416 ms P-R-T Axes : 042 -10 072 degrees QTc Int : 411 ms Sinus bradycardia Nonspecific ST and T wave abnormality Abnormal ECG Confirmed by BRENNAN DALEY, JEROME ([id number]), film and video editor JOANNA KENNEDY ([id number]) on 11/01/2021 10:01:47 AM Referred By: JOHNY Confirmed By:JEROME AMIN MD
[2021-10-29 14:00] LABS: Troponin-I HS 8 pg/mL (3.0-54.0)
--- NOTE | 2021-10-29 14:35 | CON.PCM.CA_ITS ---
Assessment & Plan Assessment/Plan (1) Hypertensive urgency: PLAN: The patient did have concerns of hypertensive urgency/emergency. At the present time her blood pressure appears to be improving. Her medications will need to be reevaluated for additional adjustment to assist with her blood pressure control. (2) Unstable angina: PLAN: The patient had nonexertional chest discomfort as previously described. It is unclear whether this is solely related to her hypertensive u rgency/emergency superimposed upon her cardiovascular condition versus a separate underlying concern with her coronary related issues. At the moment she appears to be symptomatically improved. She will continue to be followed. Her initial troponin I levels negative and her initial ECG demonstrated no acute changes. She will continue medical management. It may not be unreasonable to reassess her left ventricular wall motion systolic function with a follow-up transthoracic echocardiogram. She recently underwent evaluation with an exercise tolerance test/imaging study as noted above which was unremarkable. Thus if she requires additional evaluation of her coronary status this may include repeat diagnostic cardiac catheterization. (3) Atherosclerosis of coronary artery of [place] heart without angina pectoris: PLAN: Again she has a history of CAD and has undergone previous multivessel PCI as noted. She will continue her monitoring and her evaluation as noted. (4) History of coronary artery stent placement: PLAN: Her previous records available for review are noted. She has had PCI to the LAD, LCx, and RCA systems. She will continue medical management. She has recently been evaluated noninvasively. As noted above if she requires additional cardiovascular evaluation it may, in the form of repeat diagnostic cardiac catheterization. (5) Hyperlipidemia: PLAN: The patient should continue risk factor evaluation and care. (6) Type 2 diabetes mellitus: PLAN: The patient will continue medical therapy per internal medicine. Addt'l Comments The patient also states she is tentatively scheduled to leave for [place] next week to spend the holiday season and/or part of the winter months with her family. The patient's case has previously been discussed and reviewed with the patient as well as the [facility] emergency department staff. This note was generated using a voice recognition system and there may be incorrect words, spelling or punctuation that were not noted when reviewing the office note prior to saving. HPI Consult Data Date of Consult: 10/29/21 HPI Narrative HPI Narrative: GREYSON KELLY, is a 85 year old white female who presents for cardiovascular consultation based upon concerns of hypertension superimposed upon a history of underlying CAD, previous PTCA/stent to the LAD (2015), LCx (2012), and RCA (2006), superimposed upon hyperlipidemia, and diabetes mellitus. Since her last outpatient cardiovascular visit on 09-22-2021 she believes she has been doing well until earlier this day. Earlier this day she states she had a headache and felt nauseated. She checked her blood pressure and noted her systolic blood pressure was in excess of 250 mmHg and her diastolic blood pressure was in excess of 100 mmHg. She contacted her daughter. She was instructed to present to the emergency department for further evaluation and care. In the emergency department it appears her blood pressure was recorded at 252/87 mmHg with a heart rate of 66 bpm. During her evaluation she stated she did note some left-sided chest discomfort. She describes this as a aching sensation. It did not necessarily radiate. She did not note any acute respiratory related issues. She did have nausea but no report of emesis. She does not recall having obvious orthopnea or PND. She states she has had peripheral pitting edema in the past when she had been on amlodipine therapy. She notes she retried it at a lower dose and still had lower extremity peripheral pitting edema. Thus she stopped it. She notes that she stopped the medication her edema resolved but her blood pressure increased. She does not report any obvious near syncope or syncope. She was treated by the emergency [place] staff with nitroglycerin sublingual. She states her symptoms appear to improve. She was also noted to have improvement in her blood pressure. At the present time she appears to be resting reasonably comfortably. She states her headache has improved but is not gone. She notes her nausea has improved. She is no longer having chest discomfort. Her initial troponin I level was negative. Her ECG demonstrated sinus bradycardia with nonspecific ST/T wave abnormality. [facility] Medical History Arthritis Atherosclerosis of coronary artery of [place] heart without angina pectoris Back pain Cataracts, bilateral Change in facial mole Chronic bronchitis Chronic bronchitis Chronic sinusitis COPD (chronic obstructive pulmonary disease) Dog scratch Emphysema lung Essential (primary) hypertension GERD (gastroesophageal reflux disease) Herniated disc Hyperlipidemia Leg cramps Obesity Osteoarthritis Osteoporosis Pigmented skin lesion suspicious for malignant neoplasm Rupture herniated disc Sleep apnea Type 2 diabetes mellitus Vertigo Home Medications acetaminophen 325 mg tablet 500 mg PO Q6H PRN 11/16/17 [History Last Taken Un known] one touch ultra lancets MISCELLANEOUS 11/16/17 [History Last Taken Unknown] nitroglycerin 0.4 mg sublingual tablet 0.4 mg SUBLINGUAL Q5M PRN #25 tab 04/25/18 [Rx Last Taken Unknown] aspirin 81 mg tablet,delayed release 81 mg PO DAILY 03/01/19 [History Last Taken Unknown] albuterol sulfate 2.5 mg INHALATION Q8H PRN #180 ml 09/13/19 [Rx Last Taken Unknown] Insulin syringes #200 ea 01/14/20 [Rx Last Taken Unknown] multivitamin 1 tab PO DAILY 01/14/20 [History Last Taken Unknown] lisinopril 20 mg tablet 20 mg PO BID #180 tab 10/14/20 [Rx Last Taken Unknown] clopidogrel 75 mg tablet See Rx Instructions .ROUTE .COMPLEX #90 tab 12/15/20 [Rx Last Taken Unknown] blood sugar diagnostic #100 strip 12/31/20 [Rx Last Taken Unknown] albuterol sulfate 90 mcg/actuation aerosol inhaler 1 puff INHALATION Q6H PRN #8.5 g 02/18/21 [Rx Last Taken Unknown] meclizine 12.5 mg tablet 12.5 mg PO BID-TID PRN #60 tab 02/18/21 [Rx Last Taken Unknown] insulin glargine 100 unit/mL subcutaneous solution See Rx Instructions .ROUTE .COMPLEX #10 ml 02/19/21 [Rx Last Taken Unknown] magnesium oxide 400 mg PO DAILY 04/26/21 [History Last Taken Unknown] fluticasone propionate 50 mcg/actuation nasal spray,suspension 1 spray INTRANASAL BID PRN #16 g 08/09/21 [Rx Last Taken Unknown] metoprolol succinate 50 mg tablet,extended release 24 hr 50 mg PO DAILY #90 tab 09/13/21 [Rx Last Taken Unknown] lovastatin 40 mg tablet 80 mg PO DAILY #180 tab 09/17/21 [Rx Last Taken Unknown] Allergy/AdvReac Type Severity Reaction Status Date / Time codeine AdvReac Nausea/Vom/ Verified 10/29/21 08:31 Diarrhea Family History Sister Cancer passed of lung CA at 45 Grandmother Diabetes Heart disease CVA (cerebral vascular accident) Mother Diabetes Heart disease Brother Heart disease Myocardial infarction Daughter Arthritis Son Heart disease Surgical History History of History of carpal tunnel release History of carpal tunnel surgery history of cataracts removal History of section History of coronary artery stent placement (02/29/16) Status post trigger finger release Status post trigger finger release Social History Smoking Status: Former smoker how long ago did patient quit smokin alcohol intake: never substance use type: does not use what type of physical activity do you participate in: walking frequency: daily ROS Constitutional Constitutional: Reports as per HPI Eyes Eyes: Reports as per HPI ENT HEENT: Reports headache(s) Cardiovascular Cardiovascular: Reports chest pain, chest pain at rest and nausea Respiratory/Chest Respiratory/Chest: Reports as per HPI Gastrointestinal Gastrointestinal: Reports nausea Genitourinary Genitourinary: Reports as per HPI Musculoskeletal Musculoskeletal: Reports as per HPI Integumentary Integumentary: Reports as per HPI Neurologic Neurologic: Reports as per HPI Physical Exam Const alert, oriented x3, no apparent distress and healthy appearing Orientation / Consciousness: awake HEENT normocephalic, head/scalp atraumatic and hearing grossly normal bilaterally Eyes PERRL, EOMs intact bilaterally and conjunctivae normal Neck full ROM, supple and no JVD Chest inspection of chest normal Resp clear to auscultation bilaterally Cardio regular rate, regular rhythm, S1 normal heart sound and S2 normal heart sound Heart Sounds: murmur systolic II/ soft mid left sternal border, LVOT and sternal notch Bruits: carotid bruit left GI normal to inspection, nondistended, normoactive bowel sounds Extremity no pedal edema Skin no rashes or lesions noted Neuro oriented x3, moves all extremities, no focal motor deficits and no sensory deficits noted Psych mental status grossly normal Risk Stratification Risk Stratification Applicable: Yes Age >/= 65: Yes >/= 3 CAD Risk Factors (HTN, HLD, DM, family hx of CAD, or current smoker): Yes Aspirin Use in the Past 7 Days: Yes Severe Angina (>/= episodes in 24 hours): No EKG ST Changes >/= 0.5mm: No Positive Cardiac Marker: No MARK Risk Stratification Score: 3 MARK % Risk: 13% Risk Procedure Criteria Type of Procedure Procedure Type: Elective Elective Risks - COVID COVID Risk Discussion: The surgeon/proceduralist and patient have discussed in detail the risk of exposure to and/or potential harm posed by the COVID-19 virus with having a surgery/procedure at this time versus the risk of delaying the surgery/procedure. It is not possible to know either the risk of delaying the surgery or procedure or chance of getting an infection with perfect accuracy, but a joint decision was made between the patient and the surgeon/proceduralist to proceed at this time with the scheduled surgery/procedure as indicated on the consent form. Objective Data Vital Signs: Vital Signs Temp Pulse Resp BP Pulse Ox 97.9 F 66 18 147/49 H 100 10/29/21 13:10 10/29/21 13:10 10/29/21 13:10 10/29/21 13:10 10/29/21 13:10 Oxygen Delivery Method Room Air Weight: 146 lb 9.718 oz Body Mass Index (BMI) 29.6 Lab / Micro Data Result Diagrams: 10/29/21 09:03 10/29/21 09:03 Labs: Laboratory Results - last 24 hr 10/29/21 09:03: WBC 7.5, RBC 4.52, Hgb 13.6, Hct 40.1, MCV 88.7, MCH 30.1, MCHC 33.9, RDW Std Deviation 41.1, RDW Coeff of Elke 12.6, Plt Count 295, MPV 8.6, Immature Gran % (Auto) 0.400, Neut % (Auto) 72.2 H, Lymph % (Auto) 16.0 L, [place] % (Auto) 8.2, Eos % (Auto) 2.4, Baso % (Auto) 0.8, Absolute Neuts (auto) 5.4, Absolute Lymphs (auto) 1.20, Nucleated RBC % 0 10/29/21 09:03: Sodium 131 L, Potassium 4.0, Chloride 97 L, Carbon Dioxide 29.0, Anion Gap 5, BUN 14, Creatinine 0.66, Estim Creat Clear Calc 43.48, Est GFR (MDRD) Af Amer 109, Est GFR (MDRD) Non-Af 90, BUN/Creatinine Ratio 21.1 H, Glucose 158 H, Calcium 9.3, Troponin I High Sens 6 12/17/21 13:33: Troponin I High Sens 8 Cardiology Labs/Tests 10/29/21 09:03: WBC 7.5, RBC 4.52, Hgb 13.6, Hct 40.1, MCV 88.7, MCH 30.1, MCHC 33.9, Plt Count 295, MPV 8.6, Immature Gran % (Auto) 0.400, Neut % (Auto) 72.2 H , Lymph % (Auto) 16.0 L, [place] % (Auto) 8.2, Eos % (Auto) 2.4, Baso % (Auto) 0.8, Absolute Neuts (auto) 5.4, Nucleated RBC % 0 10/29/21 09:03: Sodium 131 L, Potassium 4.0, Chloride 97 L, Carbon Dioxide 29.0, Anion Gap 5, BUN 14, Creatinine 0.66, Est GFR (MDRD) Af Amer 109, Est GFR (MDRD) Non-Af 90, BUN/Creatinine Ratio 21.1 H, Glucose 158 H, Calcium 9.3 Rhythm: Sinus rhythm EKG: As noted above ECHO: 07-18-2019 Interpretation Summary Normal LV size. Left ventricular systolic function is normal. The estimated ejection fraction is 60 %. Stage 2 diastolic dysfunction. Stress Test: 07-01-2021 Stress Test Report Pharmacologic myocardial perfusion stress test. 85-year-old lady with a history of coronary artery disease dyspnea on exertion. Status post multiple stenting procedures. Stress protocol: Resting EKG demonstrates normal sinus rhythm with a rate of 61 bpm normal intervals are noted resting blood pressure is 140/72 mmHg. 0.4 mg of regadenoson was infused per usual protocol followed by rapid venous saline flush injection continuous EKG monitoring was performed. The maximum heart rate attained was 81 bpm which was 59% of max infected heart rate the maximum workload attained was 1 metabolic equivalent. At rest there were no ST or T wave changes noted to suggest abnormal flow reserve and at peak infusion nonspecific ST changes were noted with did not meet the criteria for ischemia. No clinical angina was noted. Myocardial perfusion protocol. 11.4 mCi of technetium 99m sestamibi was injected at rest. 0.4 mg of regaden oson was infused. Protocol peak infusion 35.2 mCi of technetium 99m sestamibi was injected stress images were obtained stress and rest images were reconstructed and compared in the short axis vertical long horizontal long axis. Gated images were also obtained for Perfusion SPECT analysis: Review of the stress images demonstrate normal uptake of tracer noted in all areas of the myocardium the resting images similarly demonstrate normal uptake of tracer noted in all areas of the myocardium. The estimated ejection fraction is 83%. Conclusion: Normal pharmacologic myocardial perfusion stress test. Preserved ejection fraction. Cardiac Cath: 02-29-2016: [facility] LAD: 90% stenosis-mid PCI: 02-29-2016: [facility] LAD: 2.75 x 16 mm Synergy drug-eluting stent 06-08-2012: [facility] LCx: Proximal: 2.5 x 12 mm Xience drug-eluting stent RCA: Mid: 3 x 12 mm Xience drug-eluting stent Radiography Diagnostic Testing: Radiology Impression Brain CT 10/29/21 08:48 IMPRESSION: Chronic involutional changes of the brain. Electronically Signed: Andrey Spangler MD at 10:05 EST , Service support , Chest X-Ray 10/29/21 09:39 IMPRESSION: Mild degree of persistent increased markings at the lung bases suggestive of right basilar scarring slightly more prominent on the left side. Electronically Signed: Andrey Spangler MD at 10:04 EST , Service support ,
--- NOTE | 2021-10-29 14:52 | ECHOD_ITS ---
Reason For Study: CHEST PAIN Procedure This was a 2D Doppler, Color Flow transthoracic echocardiogram. The study was technically difficult. Exam performed portable in patient room. Left Ventricle Normal LV size. Left ventricular systolic function is hyperdynamic. The estimated ejection fraction is 75 %. No evidence for diastolic dysfunction. No regional wall motion abnormalities noted. Right Ventricle Normal RV size. Normal systolic function. Atria Normal left atrium. Normal right atrium. No doppler evidence for ASD. Mitral Valve There is no mitral annular calcification. Normal mitral valve. Trivial mitral valve insufficiency. Tricuspid Valve Normal tricuspid valve. Trivial tricuspid valve insufficiency. Unable to estimate RV systolic pressure/pulmonary artery pressure due to technically difficult study. Aortic Valve Trisinus/trileaflet aortic valve. Mild focal aortic valve calcification. Pulmonic Valve The pulmonic valve is not well visualized. Great Vessels Normal sized aortic root. Pericardium/Pleural No pericardial effusion. MMode/2D Measurements & Calculations LVIDd: 4.0 cm IVSd: 1.2 cm Ao root diam: 2.9 cm LVIDs: 2.0 cm LVPWd: 1.2 cm RVDd: 2.7 cm FS: 49.6 % LAV(MOD-bp): 41.2 ml LA A4 area: 16.6 cm2 LA dimension(2D): 3.7 cm LAV(MOD-bp) Indexed: 25.5 ml/m2 LAV(MOD-sp2): 42.2 ml LAV(MOD-sp4): 40.7 ml RA A4 area: 10.8 cm2 Doppler Measurements & Calculations MV E max tod: 60.2 cm/sec Lat Peak E' Tod: 5.7 cm/sec Med Peak E' Tod: 6.7 cm/sec MV A max tod: 108.5 cm/sec E/E' lat: 10.6 E/E' med: 9.0 MV E/A: 0.55 Ao V2 max: 190.9 cm/sec LV V1 max: 118.2 cm/sec PA V2 max: 123.7 cm/sec Ao max P.6 mmHg LV V1 max P.6 mmHg ECHO/Echo Complete Interpretation Summary The study was technically difficult. Left ventricular systolic function is hyperdynamic. The estimated ejection fraction is 75 %. Trivial mitral valve insufficiency. Trivial tricuspid valve insufficiency. Mild focal aortic valve calcification. Unable to estimate RV systolic pressure/pulmonary artery pressure due to techni william difficult study. No evidence for diastolic dysfunction. Ordering Physician: Juma Bland Referring Physician: Ora Jefferson Performed By: Carlota Gordillo, RDCS, RVT
[2021-10-29 15:48] LABS: Troponin-I HS 8 pg/mL (3.0-54.0)
[2021-10-29] MEDS: Isosorbide Mononitrate 30 MG Tablet PO (15:55)
[2021-10-29] MEDS: Acetaminophen 500 MG Tablet PO ×2 (16:55→21:29)
--- NOTE | 2021-10-29 17:16 | EKG12_ITS ---
Test Reason : Blood Pressure : / mmHG Vent. Rate : 067 BPM Atrial Rate : 067 BPM P-R Int : 194 ms QRS Dur : 088 ms QT Int : 396 ms P-R-T Axes : 059 -07 094 degrees QTc Int : 418 ms Normal sinus rhythm Left ventricular hypertrophy with repolarization abnormality Abnormal ECG When compared with ECG of 30-OCT-2021 05:25, MANUAL COMPARISON REQUIRED, DATA IS UNCONFIRMED Confirmed by PETER DALEY, JEFF ([id number]), production editor JOANNA KENNEDY ([id number]) on 11/02/2021 8:42:42 AM Referred By: COOKIE Confirmed By:JEFF GREEN MD
[2021-10-29 17:35] LABS: Bedside Glucose 143 mg/dL (70-110)
--- NOTE | 2021-10-29 19:51 | PCS.PANDOC ---
PANDEMIC DOCUMENTATION INITIATED: Date: 06/28/2021 Time: 190
[2021-10-29] MEDS: 0.9% Saline Lock 10 ML Syringe IV (19:55)
[2021-10-29] MEDS: Atorvastatin Calcium 20 MG Tablet PO (21:09)
[2021-10-29] MEDS: Lisinopril 20 MG Tablet PO (21:09)
[2021-10-29 21:26] LABS: Bedside Glucose 126 mg/dL (70-110)
[2021-10-30] VITALS (11 sets, daily range): BP systolic 122–173; BP diastolic 51–67; PULSE 54–66; RESP 18; TEMP 36.2–36.8; O2SAT 97–98
--- NOTE | 2021-10-30 05:55 | EKG12_ITS ---
Test Reason : AM EKG Blood Pressure : / mmHG Vent. Rate : 055 BPM Atrial Rate : 055 BPM P-R Int : 200 ms QRS Dur : 090 ms QT Int : 470 ms P-R-T Axes : 061 -01 067 degrees QTc Int : 449 ms Sinus bradycardia Otherwise normal ECG When compared with ECG of 29-OCT-2021 17:21, MANUAL COMPARISON REQUIRED, DATA IS UNCONFIRMED Confirmed by PETER DALEY, JEFF ([id number]), book or script editor JOANNA KENNEDY ([id number]) on 11/02/2021 8:41:42 AM Referred By: DR LEUNG Confirmed By:JEFF GREEN MD
[2021-10-30 06:45] LABS: Bedside Glucose 131 mg/dL (70-110)
[2021-10-30 06:49] LABS: Absolute Lymphocyte Count 1.41 X10^3/uL (0.83-4.51); Absolute Neutrophil Count 4.9 X10^3/uL (2.0-7.7); Basophil# 0.03 X10^3/uL; Basophil% 0.4 % (0-1); Eosinophil# 0.19 X10^3/uL; Eosinophils% 2.6 % (0-5); Hematocrit 31.9 % (37-47); Hemoglobin 10.8 g/dL (12.0-15.0); Lymphocyte # 1.41 X10^3/ul (0.83-4.51); Lymphocyte % 19.6 % (19-41); Mean Corp Hgb Conc 33.9 g/dL (32-36); Mean Corpuscular Hgb 30.2 pg (27.0-32.0); Mean Corpuscular Volume 89.1 fL (81-99); Mean Platelet Vol. 8.8 fl (6.2-12.0); Monocyte# 0.61 X10^3/uL; Monocyte% 8.5 % (0-10); NRBC Flagged by Analyzer 0 % (0-5); Neutrophil # 4.94 X10^3/uL (2.7-7.7); Neutrophil % 68.5 % (47-70); Platelet Count 249 K/mm3 (150-450); RBC Distribution Width CV 12.8 % (11.6-14.6); RBC Distribution Width SD 42.3 fl (35.1-43.9); Red Blood Count 3.58 M/mm3 (4.2-5.4); White Blood Count 7.2 K/mm3 (4.4-11.0)
[2021-10-30 07:15] LABS: AST(SGOT) 17 U/L (15-37); Alanine Aminotransfer ALT/SGPT 26 U/L (13-56); Albumin, Serum 2.9 g/dL (3.2-5.0); Alkaline Phosphatase 66 U/L (45-117); Anion Gap 7 (5-15); BUN 14 mg/dL (7-18); BUN/Creat Ratio 24.1 RATIO (10-20); Calcium,Total 8.3 mg/dL (8.5-10.1); Chloride 101 mmol/L (98-107); Creatinine, Serum 0.58 mg/dL (0.55-1.02); EST Glomerular Filtration Rate 105 mL/min (>60); Est Glom Filt Rate - Afr Amer 127 mL/min (>60); Estimated Creatinine Clearance 43.96 ml/min; Glucose 118 mg/dL (74-106); Potassium 4.2 mmol/L (3.5-5.1); Protein, Total 5.9 g/dL (6.4-8.2); Sodium Level 131 mmol/L (136-145)
[2021-10-30] MEDS: Clopidogrel Bisulfate 75 MG Tablet PO (09:20)
[2021-10-30] MEDS: Lisinopril 20 MG Tablet PO ×2 (09:20→19:51)
[2021-10-30] MEDS: Aspirin E.C. 81 MG Tablet PO (09:20)
[2021-10-30] MEDS: Magnesium Chloride 64 MG Delay Rel.Tablet 128 MG PO (09:59)
[2021-10-30] MEDS: Pantoprazole Sodium 40 MG Tablet PO (09:59)
[2021-10-30] MEDS: Multivitamins,Therapeutic Tablet 1 TABLET PO (09:59)
[2021-10-30] MEDS: Insulin Lispro 100 UNIT/ML INSULN.PEN SC ×2 (11:33→16:31)
[2021-10-30 11:40] LABS: Bedside Glucose 214 mg/dL (70-110)
--- NOTE | 2021-10-30 12:11 | PCM.PN.HOSP ---
Documented by User: Elizabeth Ibarra NP-[place] 10/30/21 12:20 Subjective Subjective Patient seen and examined. Patient in bed no distress noted. Dr. Bland following patient, plan for patient to undergo cardiac catheterization on Monday. Objective Data Objective Data Vital Signs: Vital Signs Temp Pulse Resp BP Pulse Ox 97.1 F L 58 L 18 149/59 H 98 10/30/21 09:16 10/30/21 10:00 10/30/21 09:16 10/30/21 09:16 10/30/21 09:16 Oxygen Delivery Method Room Air Weight: 146 lb 9.718 oz Body Mass Index (BMI) 29.6 Intake & Output: Intake and Output for Last 24 Hours 10/28/21 10/29/21 10/30/21 23:59 23:59 23:59 Intake Total 1185 / 1485 900 / 900 Balance 1185 / 1485 900 / 900 Lab / Micro Data Result Diagrams: 10/30/21 05:40 10/30/21 05:40 Labs: Laboratory Results - last 24 hr 10/29/21 13:33: Troponin I High Sens 8 10/29/21 15:20: Troponin I High Sens 8 10/29/21 17:09: POC Glucose 143 H 10/29/21 21:05: POC Glucose 126 H 10/30/21 05:40: WBC 7.2, RBC 3.58 L, Hgb 10.8 L, Hct 31.9 L, MCV 89.1, MCH 30.2, MCHC 33.9, RDW Std Deviation 42.3, RDW Coeff of [place]ke 12.8, Plt Count 249, MPV 8.8, Immature Gran % (Auto) 0.400, Neut % (Auto) 68.5, Lymph % (Auto) 19.6, [place] % (Auto) 8.5, Eos % (Auto) 2.6, Baso % (Auto) 0.4, Absolute Neuts (auto) 4.9, Absolute Lymphs (auto) 1.41, Nucleated RBC % 0 10/30/21 05:40: Sodium 131 L, Potassium 4.2, Chloride 101, Carbon Dioxide 23.0, Anion Gap 7, BUN 14, Creatinine 0.58, Estim Creat Clear Calc 43.96, Est GFR (MDRD) Af Amer 127, Est GFR (MDRD) Non-Af 105, BUN/Creatinine Ratio 24.1 H, Glucose 118 H, Calcium 8.3 L, Total Bilirubin 0.40, AST 17, ALT 26, Alkaline Phosphatase 66, Total Protein 5.9 L, Albumin 2.9 L, Globulin 3.0, Albumin/Globulin Ratio 1.0 10/30/21 06:29: POC Glucose 131 H 10/30/21 11:29: POC Glucose 214 H Radiography Diagnostic Testing: Radiology Impression Echocardiogram 10/29/21 14:52 Interpretation Summary The study was technically difficult. Left ventricular systolic function is hyperdynamic. The estimated ejection fraction is 75 %. Trivial mitral valve insufficiency. Trivial tricuspid valve insufficiency. Mild focal aortic valve calcification. Unable to estimate RV systolic pressure/pulmonary artery pressure due to technically difficult study. No evidence for diastolic dysfunction. Ordering Physician: Juma Bland Referring Physician: Ora Jefferson Performed By: Carlota Gordillo, RDCS, RVT Physical Exam Const alert, oriented x3 and no apparent distress HEENT head/scalp atraumatic and moist oral mucous membranes Head and Scalp: normocephalic Eyes conjunctivae normal and no scleral icterus Neck full ROM and supple Resp normal respiratory effort, normal air movement and clear to auscultation bilaterally Effort and Inspection: able to speak in complete sentences and symmetric chest movement Cardio regular rate, regular rhythm, S1 normal heart sound, S2 normal heart sound and peripheral pulses 2+ throughout Rate: bradycardia GI normal to inspection, nondistended, normoactive bowel sounds, soft to palpation and non-tender Extremity normal to inspection, full ROM and no clubbing, cyanosis or edema Peripheral Pulses: Yes pulses 2+ throughout Skin no rashes or lesions noted, no wounds and skin turgor normal Neuro oriented x3, moves all extremities, no focal motor deficits and no sensory deficits noted Sensorium / Orientation: awake and alert Psych affect normal Assessment & Plan Assessment/Plan (1) Unstable angina: (2) Hypertensive urgency: PLAN: Patient is an 81-year-old female who initially presented with chest pain. Patient has a history of cardiac catheterizations with stent placements and presents with unstable angina. 1. Unstable angina -Recent stress test from 07/01/2021 was negative however due to ongoing chest pain patient will undergo cardiac catheterization on Monday per Dr. Bland. -Patient has had no episodes of angina since being admitted -Continue aspirin, Plavix, lisinopril, metoprolol for CAD 2. Hypertensive urgency -Resolved -Continue lisinopril and metoprolol -Vital signs per protocol, currently stable 3. Diabetes mellitus type 2 -AC at bedtime blood sugars with sliding scale insulin ordered DVT prophylaxis-SCD's This patient was seen by [facility] [place] under the supervision of Dr. Hallman. Documented by User: Dr. Anthony Hallman MD 10/30/21 12:30 Objective Data Lab / Micro Data Result Diagrams: 10/30/21 05:40 10/30/21 05:40 Assessment & Plan Addt'l Comments This patient was seen in conjunction with [facility] [place] . I have independently interviewed and examined the patient and reviewed pertinent historical, laboratory, and other data. Please refer to [facility] note for details of this patient's presentation, findings, and recommendations. I have reviewed [facility] note and concur with documented findings. In brief, patient is a an 85-year-old lady with history of coronary artery disease with previous PCI who presented with chest pain. Found to have markedly elevated blood pressure to a monitored bed for subsequent management Physical Examination: GENERAL: cooperative HEENT: Atraumatic; EYES; Anicteric, Normal Conjunctiva NECK; supple, normal thyroid, RESPIRATORY: Diminished to auscultation CARDIOVASCULAR: Regular S1 S2, GI: soft, normoactive bowel sounds, : No Renal angle tenderness; EXTREMITIES: No edema, no clubbing, MUSCULOSKELETAL: no muscle waisting NEURO: Awake; no lateralizing signs. SKIN: No Rash PSYCH; Flat affect Assessment: 1. Acute hypertensive urgency 2. Unstable angina 3. Coronary artery disease with previous PCI 4. Generalized osteoarthritis 5. Essential hypertension 6. GERD 7. Dyslipidemia 8. Diabetes mellitus type 2 10. Obstructive sleep apnea 11. Osteoporosis 12. Chronic back pain with history of herniated disc 13. COPD 14. DVT prophylaxis Recommendations: 1. I have discussed the results of my overview and impressions with the patient 2. Options for management were reviewed Charges/Coding Visit Charges Inpatient E&M: 03876 Subs Hosp L3 Hospital Course Consultations Consultations: Consultations 10/29/21 13:08 Consult: Cardiology Routine Consulting Provider: Juma Bland Reason for Consult: unstable angina EMERGENT Consult: No MD Notified: Yes Date Notified: 10/29/21 Time Notified: 12:37 Method of Notification: Verbal
--- NOTE | 2021-10-30 12:24 | PN.CARD_ITS ---
Subjective Subjective The patient is awake and alert. She does note that yesterday after receiving medical management with isosorbide mononitrate/Imdur she developed a headache and associated nausea and an uncomfortable sensation in her chest. She underwent reevaluation with an ECG which demonstrated no acute ECG changes. She was treated with nonsteroidal anti-inflammatory agents and antiemetic agents. She felt better. Today she states she feels much better. She notes her headache is all but gone. She believes her nausea is gone. She is not complaining of ongoing chest discomfort at this time. She does note that in the past when she has had her CAD issues leading to PCI she did not have abnormal cardiac enzymes and did not have acute changes on her electrocardiogram. Objective Data Vital Signs: Vital Signs Temp Pulse Resp BP Pulse Ox 97.1 F L 58 L 18 149/59 H 98 10/30/21 09:16 10/30/21 10:00 10/30/21 09:16 10/30/21 09:16 10/30/21 09:16 Oxygen Delivery Method Room Air Weight: 146 lb 9.718 oz Body Mass Index (BMI) 29.6 Intake & Output: Intake and Output for Last 24 Hours 10/28/21 10/29/21 10/30/21 23:59 23:59 23:59 Intake Total 1185 / 1485 900 / 900 Balance 1185 / 1485 900 / 900 Lab / Micro Data Result Diagrams: 10/30/21 05:40 10/30/21 05:40 Labs: Laboratory Results - last 24 hr 10/29/21 13:33: Troponin I High Sens 8 10/29/21 15:20: Troponin I High Sens 8 10/29/21 17:09: POC Glucose 143 H 10/29/21 21:05: POC Glucose 126 H 10/30/21 05:40: WBC 7.2, RBC 3.58 L, Hgb 10.8 L, Hct 31.9 L, MCV 89.1, MCH 30.2, MCHC 33.9, RDW Std Deviation 42.3, RDW Coeff of Elke 12.8, Plt Count 249, MPV 8.8, Immature Gran % (Auto) 0.400, Neut % (Auto) 68.5, Lymph % (Auto) 19.6, [place] % (Auto) 8.5, Eos % (Auto) 2.6, Baso % (Auto) 0.4, Absolute Neuts (auto) 4.9, Absolute Lymphs (auto) 1.41, Nucleated RBC % 0 10/30/21 05:40: Sodium 131 L, Potassium 4.2, Chloride 101, Carbon Dioxide 23.0, Anion Gap 7, BUN 14, Creatinine 0.58, Estim Creat Clear Calc 43.96, Est GFR (MDRD) Af Amer 127, Est GFR (MDRD) Non-Af 105, BUN/Creatinine Ratio 24.1 H, Glucose 118 H, Calcium 8.3 L, Total Bilirubin 0.40, AST 17, ALT 26, Alkaline Phosphatase 66, Total Protein 5.9 L, Albumin 2.9 L, Globulin 3.0, Albumin/Globul in Ratio 1.0 10/30/21 06:29: POC Glucose 131 H 10/30/21 11:29: POC Glucose 214 H Cardiology Labs/Tests 10/30/21 05:40: WBC 7.2, RBC 3.58 L, Hgb 10.8 L, Hct 31.9 L, MCV 89.1, MCH 30.2, MCHC 33.9, Plt Count 249, MPV 8.8, Immature Gran % (Auto) 0.400, Neut % (Auto) 68.5, Lymph % (Auto) 19.6, [place] % (Auto) 8.5, Eos % (Auto) 2.6, Baso % (Auto) 0.4, Absolute Neuts (auto) 4.9, Nucleated RBC % 0 10/30/21 05:40: Sodium 131 L, Potassium 4.2, Chloride 101, Carbon Dioxide 23.0, Anion Gap 7, BUN 14, Creatinine 0.58, Est GFR (MDRD) Af Amer 127, Est GFR (MDRD) Non-Af 105, BUN/Creatinine Ratio 24.1 H, Glucose 118 H, Calcium 8.3 L, Total Bilirubin 0.40 Rhythm: Sinus rhythm EKG: Sinus rhythm; no acute ECG changes Chest CT Scan: Radiography Diagnostic Testing: Radiology Impression Echocardiogram 10/29/21 14:52 Interpretation Summary The study was technically difficult. Left ventricular systolic function is hyperdynamic. The estimated ejection fraction is 75 %. Trivial mitral valve insufficiency. Trivial tricuspid valve insufficiency. Mild focal aortic valve calcification. Unable to estimate RV systolic pressure/pulmonary artery pressure due to technically difficult study. No evidence for diastolic dysfunction. Ordering Physician: Juma Bland Referring Physician: Ora Jefferson Performed By: Carlota Gordillo, YONIS, RVT Physical Exam Const alert, oriented x3, no apparent distress and healthy appearing Orientation / Consciousness: awake HEENT normocephalic, head/scalp atraumatic and hearing grossly normal bilaterally Eyes PERRL, EOMs intact bilaterally and conjunctivae normal Neck full ROM, supple and no JVD Chest inspection of chest normal Resp clear to auscultation bilaterally Cardio regular rate, regular rhythm, S1 normal heart sound and S2 normal heart sound Heart Sounds: murmur systolic II/ soft mid left sternal border, LVOT and sternal notch Bruits: carotid bruit left GI normal to inspection, nondistended, normoactive bowel sounds Extremity no pedal edema Skin no rashes or lesions noted Neuro oriented x3, moves all extremities, no focal motor deficits and no sensory deficits noted Psych mental status grossly normal Assessment & Plan Assessment/Plan (1) Hypertensive urgency: PLAN: The patient did have concerns of hypertensive urgency/emergency. At the present time her blood pressure appears to be improving. Her medications will need to be reevaluated for additional adjustment to assist with her blood pressure control. (2) Unstable angina: PLAN: The patient had nonexertional chest discomfort as previously described. It is unclear whether this is solely related to her hypertensive urgency/emergency superimposed upon her cardiovascular condition versus a separate underlying concern with her coronary related issues. At the moment she appears to be symptomatically improved. She will continue to be followed. Her cardiac enzymes have remained negative. Her ECG demonstrated no acute ECG changes. She has undergone additional evaluation with transthoracic echocardiogram with the results as noted. As noted above, the patient states that in the past she has never had abnormal cardiac enzymes or ECG changes with her CAD process leading to PCI. There is concern about her underlying CAD process based upon her entire clinical scenario. Thus it is not unreasonable to consider her for reevaluation in the cardiac catheterization laboratory especially noting that she is due to travel to the [facility] next week for the holiday season, etc. (3) Atherosclerosis of coronary artery of [place] heart without angina pectoris: PLAN: Again she has a history of CAD and has undergone previous multivessel PCI as noted. Again based upon her clinical scenario/symptoms superimposed upon her cardiovascular history and taking into consideration her upcoming future travel plans would not be unreasonable to reassess her coronary anatomy via cardiac catheterization for any progression of disease that would require additional evaluation and care, etc. (4) History of coronary artery stent placement: PLAN: Her previous records available for review are noted. She has had PCI to the LAD, LCx, and RCA systems. She will continue medical management. She has recently been evaluated noninvasively. Thus with concerns of her clinical scenario superimposed upon her past cardiac history if she were going to go through additional cardiovascular studies of her CAD status this would include diagnostic cardiac catheterization. (5) Hyperlipidemia: PLAN: The patient should continue risk factor evaluation and care. (6) Type 2 diabetes mellitus: PLAN: The patient will continue medical therapy per internal medicine. Addt'l Comments The above was discussed and reviewed with the patient including the diagnostic cardiac catheterization procedure with respect to the risks and benefits. She was agreeable to this approach. Thus she will remain at [facility] on medical management including anticoagulant therapy pending further evaluation. This note was generated using a voice recognition system and there may be incorrect words, spelling or punctuation that were not noted when reviewing the office note prior to saving. Procedure Criteria Type of Procedure Procedure Type: Elective Elective Risks - COVID COVID Risk Discussion: The surgeon/proceduralist and patient have discussed in detail the risk of exposure to and/or potential harm posed by the COVID-19 virus with having a surgery/procedure at this time versus the risk of delaying the surgery/procedure. It is not possible to know either the risk of delaying the surgery or procedure or chance of getting an infection with perfect accuracy, but a joint decision was made between the patient and the surgeon/proceduralist to proceed at this time with the scheduled surgery/procedure as indicated on the consent form.
--- NOTE | 2021-10-30 15:01 | CASEMGMT ---
According to the [facility] website, the following are in-network tertiary facilities: [facility], [place], [facility], [place], [facility], [facility], [place], [facility], and . [facility] POST CM
[2021-10-30] MEDS: Metoprolol(XL)Succ 50 MG Tablet PO (15:07)
--- NOTE | 2021-10-30 15:15 | CASEMGMT ---
SINCERE MESSER assessment: Face to Face with patient for initial transition planning/care coordination assessment. SINCERE MESSER introduced self and role at [facility], pt voices understanding and consents to assessment. Pt is sitting up in chair in no distress on room air. Pt is A/Ox4 and answers all questions appropriately. Care providers, pharmacy, and demographics verified. Presentation: Pt c/o high blood pressure, headache, also c/o nausea Admitting dx: CP, HTN PCP: Ronny Specialists: Keira, cardio; TYRESE Howard Preferred Pharmacy: [facility] Insurance: [employer] Prescription Benefit: [employer] Living Will/HPOA: Pt has LW/HPOA and is aware that they are not on file at [facility]. Pt states her daughter that lives in [place] is HPOA but she would like to change her HPOA to the daughter that lives with her now. Marycarmen MONIQUE salazar, voices understanding. LNOK: Serena Stephenson, daughter Living Arrangements: Pt lives with daughter, Serena, on main level of 2 story home with 1 step in and states no concerns at home. Pt is independent with ADL's. Transportation: Pt states daughter drives and states no transportation concerns. DME/HHC: Pt has a BP cuff, grab bars, nebulizer, and bench in tub/shower. Pt states no need for any further DME. Pt states no hx of HHC or SNF. Pt states no concerns with going home at time of discharge. Pt is retired. Pt does not smoke cigarettes or drink ETOH. Pt states no further concerns/needs. CM to follow for any further discharge planning/needs. Advised pt to ask for CM if any further questions/concerns/needs arise, voices understanding. Pt Goal: Home Plan[place] SINCERE MESSER
[2021-10-30 16:25] LABS: Bedside Glucose 165 mg/dL (70-110)
--- NOTE | 2021-10-30 19:48 | CM.ED ---
MONIQUE Note RN CM advised that patient would like to complete new Living Will/HCPOA to reflect her daughter, who she lives with, as her agent. SW was advised that 2 individuals can witness the Living Will/HCPOA signature or she can request to speak to SW on Monday. Patient reports no other issues or needs. Marycarmen Bay
[2021-10-30] MEDS: Enoxaparin 60 MG/0.6 ML Syringe SC (19:51)
[2021-10-30] MEDS: Atorvastatin Calcium 20 MG Tablet PO (19:51)
[2021-10-30 23:41] LABS: Bedside Glucose 182 mg/dL (70-110)
[2021-10-31] VITALS (15 sets, daily range): BP systolic 138–182; BP diastolic 48–72; PULSE 58–78; RESP 16–18; TEMP 36.7–36.9; O2SAT 94–100
[2021-10-31 06:41] LABS: Bedside Glucose 134 mg/dL (70-110)
[2021-10-31 06:52] LABS: Absolute Lymphocyte Count 1.23 X10^3/uL (0.83-4.51); Absolute Neutrophil Count 4.5 X10^3/uL (2.0-7.7); Basophil# 0.05 X10^3/uL; Basophil% 0.8 % (0-1); Eosinophil# 0.16 X10^3/uL; Eosinophils% 2.4 % (0-5); Hematocrit 36.4 % (37-47); Hemoglobin 11.9 g/dL (12.0-15.0); Lymphocyte # 1.23 X10^3/ul (0.83-4.51); Lymphocyte % 18.5 % (19-41); Mean Corp Hgb Conc 32.7 g/dL (32-36); Mean Corpuscular Hgb 29.3 pg (27.0-32.0); Mean Corpuscular Volume 89.7 fL (81-99); Monocyte% 10.5 % (0-10); NRBC Flagged by Analyzer 0 % (0-5); Neutrophil # 4.48 X10^3/uL (2.7-7.7); Neutrophil % 67.5 % (47-70); Platelet Count 290 K/mm3 (150-450); RBC Distribution Width CV 12.8 % (11.6-14.6); RBC Distribution Width SD 42.1 fl (35.1-43.9); Red Blood Count 4.06 M/mm3 (4.2-5.4); White Blood Count 6.6 K/mm3 (4.4-11.0)
[2021-10-31 07:20] LABS: Anion Gap 9 (5-15); BUN 15 mg/dL (7-18); BUN/Creat Ratio 24.9 RATIO (10-20); Calcium,Total 8.7 mg/dL (8.5-10.1); Chloride 103 mmol/L (98-107); EST Glomerular Filtration Rate 100 mL/min (>60); Est Glom Filt Rate - Afr Amer 122 mL/min (>60); Estimated Creatinine Clearance 43.96 ml/min; Glucose 130 mg/dL (74-106); Potassium 4.2 mmol/L (3.5-5.1); Sodium Level 136 mmol/L (136-145)
[2021-10-31] MEDS: Enoxaparin 60 MG/0.6 ML Syringe SC ×2 (08:37→20:58)
[2021-10-31] MEDS: Lisinopril 20 MG Tablet PO ×2 (08:37→20:58)
[2021-10-31] MEDS: Magnesium Chloride 64 MG Delay Rel.Tablet 128 MG PO (08:37)
[2021-10-31] MEDS: Clopidogrel Bisulfate 75 MG Tablet PO (08:37)
[2021-10-31] MEDS: Metoprolol(XL)Succ 50 MG Tablet PO (08:37)
[2021-10-31] MEDS: Pantoprazole Sodium 40 MG Tablet PO (08:37)
[2021-10-31] MEDS: Multivitamins,Therapeutic Tablet 1 TABLET PO (08:38)
[2021-10-31] MEDS: Aspirin E.C. 81 MG Tablet PO (08:38)
--- NOTE | 2021-10-31 09:35 | PCM.PN.HOSP ---
Documented by User: Elizabeth Ibarra NP-C 10/31/21 09:38 Subjective Subjective And examined. Patient sitting in bed no distress noted. Discussed plan of care with patient who verbalized understanding. Objective Data Objective Data Vital Signs: Vital Signs Temp Pulse Resp BP Pulse Ox 98.5 F 67 18 160/55 H 97 10/31/21 08:31 10/31/21 08:37 10/31/21 08:31 10/31/21 08:31 10/31/21 08:31 Oxygen Delivery Method Room Air Weight: 146 lb 9.718 oz Body Mass Index (BMI) 29.6 Intake & Output: Intake and Output for Last 24 Hours 10/29/21 10/30/21 10/31/21 23:59 23:59 23:59 Intake Total 1185 / 1485 1540 / 1540 120 / 120 Balance 1185 / 1485 1540 / 1540 120 / 120 Lab / Micro Data Result Diagrams: 10/31/21 04:54 10/31/21 04:54 Labs: Laboratory Results - last 24 hr 10/30/21 11:29: POC Glucose 214 H 10/30/21 16:17: POC Glucose 165 H 10/30/21 19:54: POC Glucose 182 H 10/31/21 04:54: WBC 6.6, RBC 4.06 L, Hgb 11.9 L, Hct 36.4 L, MCV 89.7, MCH 29.3, MCHC 32.7, RDW Std Deviation 42.1, RDW Coeff of [place]ke 12.8, Plt Count 290, MPV 9.0, Immature Gran % (Auto) 0.300, Neut % (Auto) 67.5, Lymph % (Auto) 18.5 L, [place] % (Auto) 10.5 H, Eos % (Auto) 2.4, Baso % (Auto) 0.8, Absolute Neuts (auto) 4.5, Absolute Lymphs (auto) 1.23, Nucleated RBC % 0 10/31/21 04:54: Sodium 136, Potassium 4.2, Chloride 103, Carbon Dioxide 24.0, Anion Gap 9, BUN 15, Creatinine 0.60, Estim Creat Clear Calc 43.96, Est GFR (MDRD) Af Amer 122, Est GFR (MDRD) Non-Af 100, BUN/Creatinine Ratio 24.9 H, Glucose 130 H, Calcium 8.7 10/31/21 06:33: POC Glucose 134 H Physical Exam Const alert, oriented x3 and no apparent distress General Appearance: cooperative HEENT normocephalic, head/scalp atraumatic and moist oral mucous membranes Eyes conjunctivae normal and no scleral icterus Neck full ROM, no lymphadenopathy and supple Resp normal respiratory effort, normal air movement, no retractions, no use of accessory muscles and clear to auscultation bilaterally Effort and Inspection: able to speak in complete sentences and symmetric chest movement Cardio regular rate, regular rhythm, S1 normal heart sound, S2 normal heart sound and peripheral pulses 2+ throughout Rate: bradycardia GI normal to inspection, nondistended, normoactive bowel sounds, soft to palpation, non-tender and non-distended Extremity normal to inspection, full ROM and no clubbing, cyanosis or edema Skin no rashes or lesions noted, no wounds and skin turgor normal Neuro oriented x3, moves all extremities, no focal motor deficits and no sensory deficits noted Sensorium / Orientation: awake and alert Psych affect normal Assessment & Plan Assessment/Plan (1) Unstable angina: (2) Hypertensive urgency: PLAN: Patient is an 81-year-old female who initially presented with chest pain. Patient has a history of cardiac catheterizations with stent placements and presents with unstable angina. 1. Unstable angina -Recent stress test from 07/01/2021 was negative however due to ongoing chest pain patient will undergo cardiac catheterization on Monday per Dr. Bland. -Echocardiogram demonstrates EF 75%, no diastolic dysfunction. -Patient has had no episodes of angina since being admitted -Continue aspirin, Plavix, lisinopril, metoprolol for CAD 2. Hypertensive urgency -Resolved -Continue lisinopril and metoprolol -Vital signs per protocol, currently stable 3. Diabetes mellitus type 2 -AC at bedtime blood sugars with sliding scale insulin ordered DVT prophylaxis-subcu Lovenox, SCD's This patient was seen by JONG HoustonC under the supervision of Dr. Hallman. Documented by User: Dr. Anthony Hallman MD 10/31/21 11:18 Objective Data Lab / Micro Data Result Diagrams: 10/31/21 04:54 10/31/21 04:54 Assessment & Plan Addt'l Comments This patient was seen in conjunction with ADRI Houston . I have independently interviewed and examined the patient and reviewed pertinent historical, laboratory, and other data. Please refer to ADRI Houston note for details of this patient's presentation, findings, and recommendations. I have reviewed ADRI Houston note and concur with documented findings. In brief, patient is a an 85-year-old lady with history of coronary artery disease with previous PCI who presented with chest pain. Found to have markedly elevated blood pressure to a monitored bed for subsequent management 10/31/2021; patient seen currently denies any chest pain. Patient is scheduled to undergo left heart catheterization on 11/01/2021 Physical Examination: GENERAL: cooperative HEENT: Atraumatic; EYES; Anicteric, Normal Conjunctiva NECK; supple, normal thyroid, RESPIRATORY: Diminished to auscultation CARDIOVASCULAR: Regular S1 S2, GI: soft, normoactive bowel sounds, : No Renal angle tenderness; EXTREMITIES: No edema, no clubbing, MUSCULOSKELETAL: no muscle waisting NEURO: Awake; no lateralizing signs. SKIN: No Rash PSYCH; Flat affect Assessment: 1. Acute hypertensive urgency 2. Unstable angina 3. Coronary artery disease with previous PCI 4. Generalized osteoarthritis 5. Essential hypertension 6. GERD 7. Dyslipidemia 8. Diabetes mellitus type 2 10. Obstructive sleep apnea 11. Osteoporosis 12. Chronic back pain with history of herniated disc 13. COPD 14. DVT prophylaxis Recommendations: 1. I have discussed the results of my overview and impressions with the patient 2. Options for management were reviewed Charges/Coding Visit Charges Inpatient E&M: 22550 Subs Hosp L2
--- NOTE | 2021-10-31 09:56 | PCM.PN.CARD ---
Subjective Subjective The patient denies ongoing headache, nausea, or chest discomfort. She was up and ambulating. She states after ambulating around the hallway 2 times she felt short of breath and dyspneic and had to stop and rest and return to her room. She states at rest she feels her breathing is okay . Objective Data Vital Signs: Vital Signs Temp Pulse Resp BP Pulse Ox 98.5 F 67 18 160/55 H 97 10/31/21 08:31 10/31/21 08:37 10/31/21 08:31 10/31/21 08:31 10/31/21 08:31 Oxygen Delivery Method Room Air Weight: 146 lb 9.718 oz Body Mass Index (BMI) 29.6 Intake & Output: Intake and Output for Last 24 Hours 10/29/21 10/30/21 10/31/21 23:59 23:59 23:59 Intake Total 1185 / 1485 1540 / 1540 120 / 120 Balance 1185 / 1485 1540 / 1540 120 / 120 Lab / Micro Data Result Diagrams: 10/31/21 04:54 10/31/21 04:54 Labs: Laboratory Results - last 24 hr 10/30/21 11:29: POC Glucose 214 H 10/30/21 16:17: POC Glucose 165 H 10/30/21 19:54: POC Glucose 182 H 10/31/21 04:54: WBC 6.6, RBC 4.06 L, Hgb 11.9 L, Hct 36.4 L, MCV 89.7, MCH 29.3, MCHC 32.7, RDW Std Deviation 42.1, RDW Coeff of Elke 12.8, Plt Count 290, MPV 9.0, Immature Gran % (Auto) 0.300, Neut % (Auto) 67.5, Lymph % (Auto) 18.5 L, [place] % (Auto) 10.5 H, Eos % (Auto) 2.4, Baso % (Auto) 0.8, Absolute Neuts (auto) 4.5, Absolute Lymphs (auto) 1.23, Nucleated RBC % 0 10/31/21 04:54: Sodium 136, Potassium 4.2, Chloride 103, Carbon Dioxide 24.0, Anion Gap 9, BUN 15, Creatinine 0.60, Estim Creat Clear Calc 43.96, Est GFR (MDRD) Af Amer 122, Est GFR (MDRD) Non-Af 100, BUN/Creatinine Ratio 24.9 H, Glucose 130 H, Calcium 8.7 10/31/21 06:33: POC Glucose 134 H Cardiology Labs/Tests 10/31/21 04:54: WBC 6.6, RBC 4.06 L, Hgb 11.9 L, Hct 36.4 L, MCV 89.7, MCH 29.3, MCHC 32.7, Plt Count 290, MPV 9.0, Immature Gran % (Auto) 0.300, Neut % (Auto) 67.5, Lymph % (Auto) 18.5 L, [place] % (Auto) 10.5 H, Eos % (Auto) 2.4, Baso % (Auto) 0.8, Absolute Neuts (auto) 4.5, Nucleated RBC % 0 10/31/21 04:54: Sodium 136, Potassium 4.2, Chloride 103, Carbon Dioxide 24.0, Anion Gap 9, BUN 15, Creatinine 0.60, Est GFR (MDRD) Af Amer 122, Est GFR (MDRD) Non-Af 100, BUN/Creatinine Ratio 24.9 H, Glucose 130 H, Calcium 8.7 Rhythm: Sinus rhythm Physical Exam Const alert, oriented x3, no apparent distress and healthy appearing Orientation / Consciousness: awake HEENT normocephalic, head/scalp atraumatic and hearing grossly normal bilaterally Eyes PERRL, EOMs intact bilaterally and conjunctivae normal Neck full ROM, supple and no JVD Chest inspection of chest normal Resp clear to auscultation bilaterally Cardio regular rate, regular rhythm, S1 normal heart sound and S2 normal heart sound Heart Sounds: murmur systolic II/ soft mid left sternal border, LVOT and sternal notch Bruits: carotid bruit left GI normal to inspection, nondistended, normoactive bowel sounds Extremity no pedal edema Skin no rashes or lesions noted Neuro oriented x3, moves all extremities, no focal motor deficits and no sensory deficits noted Psych mental status grossly normal Assessment & Plan Assessment/Plan (1) Hypertensive urgency: PLAN: The patient did have concerns of hypertensive urgency/emergency. At the present time her blood pressure appears to be under better control. Again, she states she did not tolerate amlodipine in the past secondary to lower extremity edema. It appears after she received additional medical therapy with isosorbide mononitrate/Imdur she developed a headache and nausea. Thus depending upon her blood pressure trends she may need to consider other medications separate from those mentioned above. (2) Unstable angina: PLAN: The patient had nonexertional chest discomfort as previously described. She states she has been getting short of breath and dyspneic with exertion on ambulating in the hallway. She will continue to be followed. Her cardiac enzymes have remained negative. Her ECG demonstrated no acute ECG changes. She has undergone additional evaluation with transthoracic echocardiogram with the results as noted. As noted above, the patient states that in the past she has never had abnormal cardiac enzymes or ECG changes with her CAD process leading to PCI. There is concern about her underlying CAD process based upon her entire clinical scenario. Thus it is not unreasonable to consider her for reevaluation in the cardiac catheterization laboratory especially noting that she is due to travel to the [facility] next week for the holiday season, etc. (3) Atherosclerosis of coronary artery of [place] heart without angina pectoris: PLAN: Again she has a history of CAD and has undergone previous multivessel PCI as noted. Again based upon her clinical scenario/symptoms superimposed upon her cardiovascular history and taking into consideration her upcoming future travel plans would not be unreasonable to reassess her coronary anatomy via cardiac catheterization for any progression of disease that would require additional evaluation and care, etc. (4) History of coronary artery stent placement: PLAN: Her previous records available for review are noted. She has had PCI to the LAD, LCx, and RCA systems. She will continue medical management. She has recently been evaluated noninvasively. Thus with concerns of her clinical scenario superimposed upon her past cardiac history if she were going to go through additional cardiovascular studies of her CAD status this would include diagnostic cardiac catheterization. (5) Hyperlipidemia: PLAN: The patient should continue risk factor evaluation and care. (6) Type 2 diabetes mellitus: PLAN: The patient will continue medical therapy per internal medicine. Addt'l Comments This note was generated using a voice recognition system and there may be incorrect words, spelling or punctuation that were not noted when reviewing the office note prior to saving.
[2021-10-31] MEDS: Insulin Lispro 100 UNIT/ML INSULN.PEN SC ×2 (11:01→15:56)
[2021-10-31 11:10] LABS: Bedside Glucose 175 mg/dL (70-110)
[2021-10-31] MEDS: hydrALAZINE 20 MG/ML Vial 5 MG IV (15:20)
--- NOTE | 2021-10-31 15:43 | EKG12_ITS ---
Test Reason : CHEST PAIN/N/V Blood Pressure : / mmHG Vent. Rate : 066 BPM Atrial Rate : 066 BPM P-R Int : 174 ms QRS Dur : 076 ms QT Int : 428 ms P-R-T Axes : 054 001 075 degrees QTc Int : 448 ms Normal sinus rhythm Normal ECG When compared with ECG of 29-OCT-2021 14:15, MANUAL COMPARISON REQUIRED, DATA IS UNCONFIRMED Confirmed by PETER DALEY, JEFF ([id number]), photograph editor JOANNA KENNEDY ([id number]) on 11/02/2021 8:44:44 AM Referred By: LEXY Confirmed By:JEFF GREEN MD
[2021-10-31] MEDS: Nitroglycerin (INPATIENT USE) 0.4 MG TAB.SUBL SL ×2 (15:46→15:52)
[2021-10-31 16:01] LABS: Bedside Glucose 177 mg/dL (70-110)
[2021-10-31] MEDS: Atorvastatin Calcium 20 MG Tablet PO (20:58)
[2021-10-31 21:15] LABS: Bedside Glucose 201 mg/dL (70-110)
[2021-11-01 02:55] VITALS: BP 148/68; PULSE 61; RESP 18; TEMP 36.7; O2SAT 97
[2021-11-01 03:00] VITALS: PULSE 59
--- NOTE | 2021-11-01 05:55 | EKG12_ITS ---
Test Reason : ADMISSION CP Blood Pressure : / mmHG Vent. Rate : 063 BPM Atrial Rate : 063 BPM P-R Int : 188 ms QRS Dur : 082 ms QT Int : 430 ms P-R-T Axes : 054 002 070 degrees QTc Int : 440 ms Normal sinus rhythm Normal ECG When compared with ECG of 29-OCT-2021 09:06, MANUAL COMPARISON REQUIRED, DATA IS UNCONFIRMED Confirmed by PETER DALEY, JEFF ([id number]), editorial director JOANNA KENNEDY ([id number]) on 11/02/2021 8:45:33 AM Referred By: LEXY Confirmed By:JEFF GREEN MD
[2021-11-01 06:13] VITALS: BP 170/73; PULSE 61; RESP 16; TEMP 36.6; O2SAT 97
[2021-11-01] MEDS: 0.9% Saline Lock 10 ML Syringe IV (06:14)
[2021-11-01 06:16] VITALS: PULSE 61
[2021-11-01] MEDS: Clopidogrel Bisulfate 75 MG Tablet PO (06:16)
[2021-11-01] MEDS: Aspirin E.C. 81 MG Tablet PO (06:16)
[2021-11-01] MEDS: Lisinopril 20 MG Tablet PO (06:16)
[2021-11-01] MEDS: Metoprolol(XL)Succ 50 MG Tablet PO (06:16)
[2021-11-01] MEDS: 0.9% Normal Saline 1,000 ML 15 ML IV (06:19)
[2021-11-01 06:23] LABS: Absolute Lymphocyte Count 1.64 X10^3/uL (0.83-4.51); Absolute Neutrophil Count 4.8 X10^3/uL (2.0-7.7); Basophil# 0.04 X10^3/uL; Basophil% 0.5 % (0-1); Eosinophil# 0.23 X10^3/uL; Eosinophils% 3.1 % (0-5); Hematocrit 40.3 % (37-47); Hemoglobin 12.9 g/dL (12.0-15.0); Lymphocyte # 1.64 X10^3/ul (0.83-4.51); Lymphocyte % 21.9 % (19-41); Mean Corpuscular Hgb 28.9 pg (27.0-32.0); Mean Corpuscular Volume 90.4 fL (81-99); Monocyte# 0.75 X10^3/uL; NRBC Flagged by Analyzer 0 % (0-5); Neutrophil # 4.81 X10^3/uL (2.7-7.7); Neutrophil % 64.2 % (47-70); Platelet Count 313 K/mm3 (150-450); RBC Distribution Width CV 12.9 % (11.6-14.6); RBC Distribution Width SD 42.7 fl (35.1-43.9); Red Blood Count 4.46 M/mm3 (4.2-5.4); White Blood Count 7.5 K/mm3 (4.4-11.0)
[2021-11-01 06:25] LABS: Bedside Glucose 142 mg/dL (70-110)
[2021-11-01 06:34] LABS: Anion Gap 5 (5-15); BUN 17 mg/dL (7-18); BUN/Creat Ratio 24.6 RATIO (10-20); Calcium,Total 9.2 mg/dL (8.5-10.1); Chloride 102 mmol/L (98-107); Creatinine, Serum 0.69 mg/dL (0.55-1.02); EST Glomerular Filtration Rate 86 mL/min (>60); Est Glom Filt Rate - Afr Amer 104 mL/min (>60); Estimated Creatinine Clearance 43.96 ml/min; Glucose 136 mg/dL (74-106); Potassium 4.1 mmol/L (3.5-5.1); Sodium Level 135 mmol/L (136-145)
[2021-11-01 07:17] VITALS: PULSE 61
--- NOTE | 2021-11-01 08:33 | PN.CARD_ITS ---
Subjective Subjective Patient seen and evaluated. Appears to be doing well. Underwent a cardiac catheterization this morning. Objective Data Vital Signs: Vital Signs Temp Pulse Resp BP Pulse Ox 97.9 F 61 16 170/73 H 97 11/01/21 06:13 11/01/21 07:17 11/01/21 06:13 11/01/21 06:13 11/01/21 06:13 Oxygen Delivery Method Room Air Weight: 146 lb 9.718 oz Body Mass Index (BMI) 29.6 Intake & Output: Intake and Output for Last 24 Hours 10/30/21 10/31/21 11/01/21 23:59 23:59 23:59 Intake Total 1540 / 1540 1040 / 1040 45 / 45 Balance 1540 / 1540 1040 / 1040 45 / 45 Lab / Micro Data Result Diagrams: 11/01/21 05:10 11/01/21 05:10 Labs: Laboratory Results - last 24 hr 10/31/21 11:01: POC Glucose 175 H 10/31/21 15:55: POC Glucose 177 H 10/31/21 21:00: POC Glucose 201 H 11/01/21 05:10: WBC 7.5, RBC 4.46, Hgb 12.9, Hct 40.3, MCV 90.4, MCH 28.9, MCHC 32.0, RDW Std Deviation 42.7, RDW Coeff of Elke 12.9, Plt Count 313, MPV 9.0, Immature Gran % (Auto) 0.300, Neut % (Auto) 64.2, Lymph % (Auto) 21.9, [place] % (Auto) 10.0, Eos % (Auto) 3.1, Baso % (Auto) 0.5, Absolute Neuts (auto) 4.8, Absolute Lymphs (auto) 1.64, Nucleated RBC % 0 11/01/21 05:10: Sodium 135 L, Potassium 4.1, Chloride 102, Carbon Dioxide 28.0, Anion Gap 5, BUN 17, Creatinine 0.69, Estim Creat Clear Calc 43.96, Est GFR (MDRD) Af Amer 104, Est GFR (MDRD) Non-Af 86, BUN/Creatinine Ratio 24.6 H, Glucose 136 H, Calcium 9.2 11/01/21 06:11: POC Glucose 142 H Cardiology Labs/Tests 11/01/21 05:10: WBC 7.5, RBC 4.46, Hgb 12.9, Hct 40.3, MCV 90.4, MCH 28.9, MCHC 32.0, Plt Count 313, MPV 9.0, Immature Gran % (Auto) 0.300, Neut % (Auto) 64.2, Lymph % (Auto) 21.9, [place] % (Auto) 10.0, Eos % (Auto) 3.1, Baso % (Auto) 0.5, Absolute Neuts (auto) 4.8, Nucleated RBC % 0 11/01/21 05:10: Sodium 135 L, Potassium 4.1, Chloride 102, Carbon Dioxide 28.0, Anion Gap 5, BUN 17, Creatinine 0.69, Est GFR (MDRD) Af Amer 104, Est GFR (MDRD) Non-Af 86, BUN/Creatinine Ratio 24.6 H, Glucose 136 H, Calcium 9.2 Rhythm: EKG: ECHO: Preserved left ventricular systolic function Stress Test: Cardiac Cath: PCI: CT Surgery: Holter monitor: EPS: PPM: CXR: Chest CT Scan: Physical Exam Const alert, oriented x3 and no apparent distress General Appearance: cooperative HEENT hearing grossly normal bilaterally Head and Scalp: atraumatic Eyes EOMs intact bilaterally Neck General: normal visual inspection Chest inspection of chest normal and palpation of chest normal Resp normal respiratory effort Auscultation: clear to auscultation bilaterally Cardio regular rate, regular rhythm, S1 normal heart sound and S2 normal heart sound Jugular Venous Distention: JVD GI normal to inspection, nondistended, normoactive bowel sounds Extremity normal capillary refill and no pedal edema Peripheral Pulses: Yes pulses 2+ throughout and femoral pulses present Skin no rashes or lesions noted Neuro oriented x3 and CN's II-XII intact bilaterally Psych Appearance: grossly normal and appropriate Assessment & Plan Assessment/Plan (1) Hypertensive urgency: PLAN: The patient did have concerns of hypertensive urgency/emergency. Her blood pressure is still elevated and I would recommend that we add am lodipine 5 mg a day to her current regimen. * She will continue with the Toprol-XL 50 mg a day * Continue with lisinopril 20 mg twice a day (2) Unstable angina: PLAN: The patient had nonexertional chest discomfort as previously described. She underwent cardiac catheterization today which demonstrated the following: Normal left main coronary artery Left anterior descending artery with mild diffuse disease with previously placed mid LAD stent patent Left circumflex artery nondominant with proximal 70% eccentric stenosis First obtuse marginal branch which is diffusely diseased Second obtuse marginal branch with mild diffuse disease with previously placed stent patent Dominant large right coronary artery with extensive stenting with a high-grade 90% stenosis between the first and middle stents and a 70% stenosis between the mid and distal right coronary artery Preserved left ventricular systolic function We will discussed with interventionalist as to the best approach for revascularization. (3) Hyperlipidemia: PLAN: The patient should continue risk factor evaluation and care. I would recommend increasing the Lipitor to 80 mg once a day Thank you for allowing me to participate in the care of your patient. Please don't hesitate to call if any issues arise.
--- NOTE | 2021-11-01 08:46 | CL.D_ITS ---
Patient Name: GREYSON KELLY Study Date: 11/01/2021 Performing: Alejandro Crockett MD Ht: 59.05 inches 150 cm : 1935 Wt: 147.71 lbs 67 kg Age: 85 Gender: female BSA: 1.62 PROCEDURE(S) PERFORMED [id number])LHC/COR/LV CLINICAL PROFILE AND INDICATIONS Indications: Worsening Angina Heart Failure: None Stress/Imaging Stress/Image Study Performed: No CAD Presentations: Unstable angina. CONCLUSIONS High-grade disease noted especially in the right coronary artery with in-stent stenosis and distal di sease as well as moderately severe disease noted in the circumflex artery. Preserved ejection fracti on. RECOMMENDATIONS We will consider PCI to the right coronary artery and possibly staged the left circumflex artery. Wi ll discuss with interventionalist. DESCRIPTION OF PROCEDURE The patient arrived to the procedure lab. The risks and benefits of the procedure as well as a full d escription of our services here and current unavailability of surgical backup were fully explained to the patient and/or their significant other prior to the catheterization. The Timeout was completed, verifying the correct patient and procedure. The patient's procedural site was prepped and draped in the usual fashion. Local anesthetic was given subcutaneously to right radial region with Lidocaine 2% . Using a modified Seldinger technique, arterial access was obtained via the right radial artery, a 6 Fr sheath was inserted. Left Coronary Artery selective angiography was performed in multiple views u sing a 5 Fr. 4.0 [place] catheter. Right Coronary Artery selective angiography was then performed in mu ltiple views using a 5 Fr. JR 4 catheter. Left Ventriculography was performed in [place] projection using a 5 Fr. Pigtail catheter. LV to AO pullback pressures were then recorded. CORONARY ANGIOGRAPHY DOMINANCE: Right Dominant LEFT HEART ASSESSMENT Left Ventricular Ejection Fraction: by LV Gram 70 % Normal LV wall motion Normal Left Ventricular systolic function LEFT MAIN: Mild calcification, No significant disease noted LEFT ANTERIOR DESCENDING ARTERY: Diffusely diseased vessel with mid LAD stenting which is patent. No areas of stenosis more than 40% noted. CIRCUMFLEX ARTERY: Nondominant vessel with a proximal eccentric 75% stenosis and a smaller first obtu se marginal branch with diffuse severe disease, second obtuse marginal branch with mild disease in mi d AV groove with previously placed stent which is patent RIGHT CORONARY ARTERY: Dominant vessel with extensive stenting with high-grade 90% stenosis noted bet ween the proximal and mid right coronary artery stenting and 70% mid to distal stenosis noted between stents and diffuse distal small vessel disease. COMPLICATIONS PROCEDURE MEDICATIONS Fentanyl 50 mcg IV Versed 1 mg IV Versed 1 mg IV Oxygen: 2 L/min via nasal cannula Heparin given IA 11/01/2021 08:09:31 Verapamil 2.5mg, Ntg 100mcgs, 3000 units of Heparin given IA 11/01/2021 08:09:31 SUMMARY OF HEMODYNAMIC DATA Time AIR REST ECG 07:58:57 AO 230/74 (127) SA 08:08:35 AO 137/59 (90) 08:11:30 LV 176/3, 11 08:25:22 LV 173/3, 10 08:25:29 LV 184/8, 17 08:26:00 LV 186/7, 16 08:26:06 LVp 192/4, 17 08:26:10 AOp 180/65 (109) 08:26:15 Signed By Alejandro Crockett MD On 11/01/2021 08:45:10 Alejandro Crockett MD
--- NOTE | 2021-11-01 10:52 | PCM.PN.HOSP ---
Documented by User: Elizabeth Ibarra NP-C 11/01/21 11:14 Subjective Subjective Seen and examined. Patient lying in bed, just returned from cardiac catheterization. Patient received 1 stent to RCA. Patient denies. Chest pain. Objective Data Objective Data Vital Signs: Vital Signs Temp Pulse Resp BP Pulse Ox 97.9 F 61 16 170/73 H 97 11/01/21 06:13 11/01/21 07:17 11/01/21 06:13 11/01/21 06:13 11/01/21 06:13 Oxygen Delivery Method Room Air Weight: 146 lb 9.718 oz Body Mass Index (BMI) 29.6 Intake & Output: Intake and Output for Last 24 Hours 10/30/21 10/31/21 11/01/21 23:59 23:59 23:59 Intake Total 1540 / 1540 1040 / 1040 45 / 45 Balance 1540 / 1540 1040 / 1040 45 / 45 Lab / Micro Data Result Diagrams: 11/01/21 05:10 11/01/21 05:10 Labs: Laboratory Results - last 24 hr 10/31/21 11:01: POC Glucose 175 H 10/31/21 15:55: POC Glucose 177 H 10/31/21 21:00: POC Glucose 201 H 11/01/21 05:10: WBC 7.5, RBC 4.46, Hgb 12.9, Hct 40.3, MCV 90.4, MCH 28.9, MCHC 32.0, RDW Std Deviation 42.7, RDW Coeff of Elke 12.9, Plt Count 313, MPV 9.0, Immature Gran % (Auto) 0.300, Neut % (Auto) 64.2, Lymph % (Auto) 21.9, [place] % (Auto) 10.0, Eos % (Auto) 3.1, Baso % (Auto) 0.5, Absolute Neuts (auto) 4.8, Absolute Lymphs (auto) 1.64, Nucleated RBC % 0 11/01/21 05:10: Sodium 135 L, Potassium 4.1, Chloride 102, Carbon Dioxide 28.0, Anion Gap 5, BUN 17, Creatinine 0.69, Estim Creat Clear Calc 43.96, Est GFR (MDRD) Af Amer 104, Est GFR (MDRD) Non-Af 86, BUN/Creatinine Ratio 24.6 H, Glucose 136 H, Calcium 9.2 11/01/21 06:11: POC Glucose 142 H Physical Exam Const alert, oriented x3 and no apparent distress General Appearance: cooperative HEENT normocephalic, head/scalp atraumatic and moist oral mucous membranes Eyes conjunctivae normal and no scleral icterus Neck full ROM, no lymphadenopathy and supple Resp normal respiratory effort, normal air movement, no retractions, no use of accessory muscles and clear to auscultation bilaterally Effort and Inspection: able to speak in complete sentences and symmetric chest movement Cardio regular rate, regular rhythm, S1 normal heart sound, S2 normal heart sound and peripheral pulses 2+ throughout Rate: bradycardia GI normal to inspection, nondistended, normoactive bowel sounds, soft to palpation, non-tender and non-distended Extremity normal to inspection, full ROM and no clubbing, cyanosis or edema Skin no rashes or lesions noted, no wounds and skin turgor normal Neuro oriented x3, moves all extremities, no focal motor deficits and no sensory deficits noted Sensorium / Orientation: awake and alert Psych affect normal Assessment & Plan Assessment/Plan (1) Unstable angina: (2) Hypertensive urgency: PLAN: Patient is an 81-year-old female who initially presented with chest pain. Patient has a history of cardiac catheterizations with stent placements and presents with unstable angina. 1. Unstable angina -Recent stress test from 07/01/2021 was negative -Patient underwent cardiac catheterization this a.m., 1 stent to RCA. -Echocardiogram demonstrates EF 75%, no diastolic dysfunction. -Patient has had no episodes of angina since being admitted -Continue aspirin, Plavix, lisinopril, metoprolol for CAD 2. Hypertensive urgency -Resolved -Continue lisinopril and metoprolol -Vital signs per protocol, currently stable 3. Diabetes mellitus type 2 -AC at bedtime blood sugars with sliding scale insulin ordered DVT prophylaxis-subcu Lovenox, SCD's This patient was seen by JONG HoustonC under the supervision of Dr. Mooney. Documented by User: Dr. Nuria Mooney MD 11/02/21 07:45 Objective Data Lab / Micro Data Result Diagrams: 11/01/21 05:10 11/01/21 05:10 Charges/Coding Addendum Addendum: This patient was seen in conjunction with Elizabeth Ibarra NP. I have independently interviewed and examined the patient and reviewed pertinent historical, laboratory, and other data. I have reviewed her note and concur with her documentation Physical Exam: Vitals: Gen: Looks in some discomfort, not pale, not jaundiced CVS:HS I +II, regular, no murmurs RESP: Diminished at lung bases GI: BS present and normal, soft, nontender, no palpable organs EXT:No edema Labs: ASSESSMENT: 1. Plan:
--- NOTE | 2021-11-01 12:27 | PCIREPORT_ITS ---
PCI Cardiac Cath Report PCI Report: Procedure performed 1. Successful PCI of ostial/proximal RCA with placement of a drug-eluting stent 3 x 18 mm CHRISTIAN/Orsiro With reduction of stenosis from 70% to 20% and maintenance of MARK-3 flow 2. PTCA of 95% stenosis between the proximal and the mid portion of the RCA stent which is a large dominant vessel, using a smaller emerge 1.2 x 8 mm MR Able to cross the lesion, went up to 12 ANNIE. The lesion remains 95% with a MARK-3 flow pre and post. Preprocedure diagnosis; 85-year-old patient extensive cardiac history multiple coronary artery stents using a Taxus stent to the RCA as well as bare-metal stent to the distal RCA Patient has a progressive symptoms of chest pain with angina and is scheduled for cardiac catheterization by her primary metal sponge making machine operator Dr. Crockett Finding of cardiac cath discussed revealed the following left main patent LAD had a patent mid LAD stent with diffuse nonobstructive atherosclerosis 20- 30% The left circumflex is nondominant with a proximal eccentric 75% stenosis, a smaller Ola OM 1 branch with diffuse severe disease OM 2 as well as a small vessel The RCA is a large dominant with extensive stenting of the RCA from the proximal to the distal RCA. Also noted ostial lesion of the RCA. Consent; Risk and benefit of the procedure explained detail to the patient elected to proceed informed consent obtained. Intervention equipment; #1 Different guide catheters due to the lesion in the proximal ostial RCA which is calcified and extensive stenting of the RCA. We proceed from the right common femoral artery with the placement of 6 Guinean sheath, long 45 cm sheath then we proceed with the guide catheter reviewed initially a JR4 with sideholes and then we exchanged for JR4 regular. Difficult cannulation of the RCA, using different guide catheters AL-1, JR4 with sidehole and regular JR4 6 Guinean guide were successful using JR4 guide, and were able to cross the lesion with run- through wire and then we perform stenting of the proximal RCA and also perform PTCA of the in-stent restenosis patient developed symptoms of chest pain and she had change in the EKG with clear evidence of some ST elevation in the inferior lead and we noted there was no flow in the RCA and however after stenting the ostium of the RCA and use a different wires to cross the mid RCA were able to maintain a flow with clear evidence of thrombus noted in between the stent in the proximal and mid RCA however there is a maintenance of a MARK-3 flow patient continued of symptoms of chest pain and was started on nitroglycerin was given heparin and started IV heparin. Suture applied to the right common femoral artery sheath as well as IV heparin was started on the radial side of the sheath, patient was already on Plavix and she was given additional 300 mg of Plavix and the ACT level was more than 300 acceptable the right side there was no complication no hematoma. Her primary metal sponge making machine operator Dr. Crockett made an arrangement for urgent/emergency transfer to Carousel Attendant at the [facility] immediately to the Carousel Attendant end of dictation thank. We will continue to monitor the patient in the Carousel Attendant and was started on a low-dose of nitroglycerin for the angina and the chest pain which improve and we noted monitor and storage bin tender showed no ST elevation minor ST depression was noted in lead I she remained stable hemodynamically oxygen saturation remained stable Conclusion and plan; Very complex extensive stenting of an RCA with ostial lesion requiring PCI and stenting of the ostial proximal RCA successfully with the balloon dilatation of the proximal to mid RCA stent using a smaller balloon we were unable to cross with the 2 balloons multiple times and based on her complexity and the high risk she was transferred to a tertiary care. Patient was stable clinically with no complication in the Carousel Attendant. Patient was taken as an emergency with helicopter to [facility] cardiac [facility]/[place] directly to the Carousel Attendant. Patient remained stable hemodynamically. Suture applied to right common femoral artery sheath and placement of a Tegaderm to secure the right common femoral artery longer she is Heparin IV started on the right radial artery sheath to maintain patency of the right radial artery. There are no complication in the Carousel Attendant. John Amezcua MD,FACC,[facility]
--- NOTE | 2021-11-01 13:30 | CRPHASE1_ITS ---
Patient Communication PHII Cardiac Rehab Discussed with Patient:: Yes Guide to Cardiac Rehab Given to Patient:: Yes Cardiac Rehab Facility Choice List Given to Patient:: Yes Choice Program [facility] CR PHII:: Communication Given to CR Choice Program Other:: Communication Given to CR Supervisor [employer]:: John Amezcua Phase II Cardiac Rehab:: Yes Sessions:: 36 sessions - 3 days/wk, 12 weeks - pt life flighted from clinical lab technologist on 11/01/21 Cardiac Rehabilitation Info Cardiac Rehabilitation Program Information: Cardiac Rehabilitation is important for patients like you who are recovering from a heart problem. Cardiac rehabilitation programs are recognized as integral to the continued care of the patient with coronary heart disease. The cardiac rehabilitation program is designed to optimize a patient's physical, psychological, and social functioning. Health skin care specialist work in cardiac rehabilitation programs and assist you with getting the treatments you need to get stronger and healthier - like exercise, healthy eating habits, and medications. Cardiac rehabilitation has been show to help people with heart problems live longer and have better life enjoyment than people who do not go to cardiac rehabilitation. Please contact the Cardiac Rehabilitation Program at [facility] at in two weeks if you have not heard from them.
--- NOTE | 2021-11-01 18:40 | PCM.DC.SUM ---
Documented by User: ADRI Houston 11/02/21 15:47 Providers Date of Admission: 10/30/21 Primary Care Physician: Dr. Ora Jefferson MD Consultations 10/29/21 13:08 Consult: Cardiology Routine Consulting Provider: Juma Bladn Reason for Consult: unstable angina EMERGENT Consult: No MD Notified: Yes Date Notified: 10/29/21 Time Notified: 12:37 Method of Notification: Verbal Reason For Visit: UNSTABLE ANGINA Diagnosis Discharge Diagnosis (1) Unstable angina: Status: Acute Code(s): I20.0 - Unstable angina (2) Hypertensive urgency: Status: Acute Code(s): I16.0 - Hypertensive urgency Medications at Discharge Home Medications acetaminophen 325 mg tablet 500 mg PO Q6H PRN 11/16/17 one touch ultra lancets MISCELLANEOUS 11/16/17 nitroglycerin 0.4 mg sublingual tablet 0.4 mg SUBLINGUAL Q5M PRN #25 tab 04/25/18 aspirin 81 mg tablet,delayed release 81 mg PO DAILY 03/01/19 albuterol sulfate 2.5 mg INHALATION Q8H PRN #180 ml 09/13/19 Insulin syringes #200 ea 01/14/20 multivitamin 1 tab PO DAILY 01/14/20 lisinopril 20 mg tablet 20 mg PO BID #180 tab 10/14/20 clopidogrel 75 mg tablet See Rx Instructions .ROUTE .COMPLEX #90 tab 12/15/20 blood sugar diagnostic #100 strip 12/31/20 albuterol sulfate 90 mcg/actuation aerosol inhaler 1 puff INHALATION Q6H PRN #8.5 g 02/18/21 meclizine 12.5 mg tablet 12.5 mg PO BID-TID PRN #60 tab 02/18/21 insulin glargine 100 unit/mL subcutaneous solution See Rx Instructions .ROUTE .COMPLEX #10 ml 02/19/21 magnesium oxide 400 mg PO DAILY 04/26/21 fluticasone propionate 50 mcg/actuation nasal spray,suspension 1 spray INTRANASAL BID PRN #16 g 08/09/21 metoprolol succinate 50 mg tablet,extended release 24 hr 50 mg PO DAILY #90 tab 09/13/21 lovastatin 40 mg tablet 80 mg PO DAILY #180 tab 09/17/21 Hospital Course Operations None Procedures Cardiac catheterization and EKG Summary of Care Provided Minutes Spent on Discharge: 35 Hospital Course: Patient is an 85-year-old female who initially presented to the ER with complaints of nausea, palpitations and chest pressure. Patient's blood pressure was noted to be significantly elevated at 252/87. Patient received nitroglycerin and was admitted to PCU for cardiac monitoring. Cardiology was consulted and an echocardiogram was obtained which demonstrated an EF of 75% with no diastolic dysfunction. Patient has significant cardiac history and has multiple stent placements. Patient did not have EKG changes however due to patient's history of needing intervention despite negative stress and normal EKG patient was taken to cardiac cath and the diagnostic was performed by Dr. Crockett where it was noted that her RCA with extensive stenting with a high-grade 90% stenosis between the first and middle stents and a 70% stenosis between the mid and distal right coronary artery. Dr. Amezcua then took over to complete intervention. During the intervention stage of the cardiac catheterization the proximal ostial RCA was noted to be calcified and due to the complexity and the high risk of complication patient was transferred to tertiary care leeds via [facility] for further intervention. Patient was stable Information Technology Security Manager and throughout transfer to tertiary facility. Physical Exam Const alert, oriented x3 and no apparent distress General Appearance: cooperative HEENT normocephalic, head/scalp atraumatic and moist oral mucous membranes Eyes conjunctivae normal and no scleral icterus Neck full ROM, no lymphadenopathy and supple Resp normal respiratory effort, normal air movement, no retractions, no use of accessory muscles and clear to auscultation bilaterally Effort and Inspection: able to speak in complete sentences and symmetric chest movement Cardio regular rate, regular rhythm, S1 normal heart sound, S2 normal heart sound and peripheral pulses 2+ throughout Rate: bradycardia GI normal to inspection, nondistended, normoactive bowel sounds, soft to palpation, non-tender and non-distended Extremity normal to inspection, full ROM and no clubbing, cyanosis or edema Skin no rashes or lesions noted, no wounds and skin turgor normal Neuro oriented x3, moves all extremities, no focal motor deficits and no sensory deficits noted Sensorium / Orientation: awake and alert Psych affect normal Weight / BMI Weight Weight: 146 lb 9.718 oz Body Mass Index (BMI) 29.6 ABG / Lab / Microbiology Data Result Diagrams: 11/01/21 05:10 11/01/21 05:10 Laboratory: Laboratory Results - last 24 hr 10/31/21 21:00: POC Glucose 201 H 11/01/21 05:10: WBC 7.5, RBC 4.46, Hgb 12.9, Hct 40.3, MCV 90.4, MCH 28.9, MCHC 32.0, RDW Std Deviation 42.7, RDW Coeff of Elke 12.9, Plt Count 313, MPV 9.0, Immature Gran % (Auto) 0.300, Neut % (Auto) 64.2, Lymph % (Auto) 21.9, [place] % (Auto) 10.0, Eos % (Auto) 3.1, Baso % (Auto) 0.5, Absolute Neuts (auto) 4.8, Absolute Lymphs (auto) 1.64, Nucleated RBC % 0 11/01/21 05:10: Sodium 135 L, Potassium 4.1, Chloride 102, Carbon Dioxide 28.0, Anion Gap 5, BUN 17, Creatinine 0.69, Estim Creat Clear Calc 43.96, Est GFR (MDRD) Af Amer 104, Est GFR (MDRD) Non-Af 86, BUN/Creatinine Ratio 24.6 H, Glucose 136 H, Calcium 9.2 11/01/21 06:11: POC Glucose 142 H Microbiology: Microbiology 11/01/21 11:30 Nasal Secretion SARS-CoV-2 Antigen (Rapid) - Final D/C Instructions Discharge Diet: Low fat / Low cholesterol Meaningful Use Info Meaningful Use Diagnoses (Choose all that apply): None applicable Discharge Plan Admission Admit Date/Time: 10/30/21 14:57 Attending Provider: Nuria Mooney Primary Care Provider: Ora Jefferson Consulting Providers: Juma Bland Discharge Orders/Prescriptions Prescriptions: No Action acetaminophen [Tylenol] 325 mg tablet 500 mg PO Q6H PRN (Reason: Pain) RF: 0 one touch ultra lancets miscellaneous RF: 0 nitroglycerin [Nitrostat] 0.4 mg tablet, sublingual 0.4 mg SUBLINGUAL Q5M PRN (Reason: chest pain) Qty: 25 RF: 3 aspirin [Adult Aspirin Regimen] 81 mg tablet,delayed release (DR/EC) 81 mg PO DAILY RF: 0 multivitamin [Daily Multi-Vitamin] Tablet 1 tab PO DAILY RF: 0 (DME) Insulin syringes 0.5ml Qty: 200 RF: 3 clopidogrel 75 mg tablet See Rx Instructions .ROUTE .COMPLEX Qty: 90 RF: 3 lisinopril 20 mg tablet 20 mg PO BID Qty: 180 RF: 3 magnesium oxide 400 mg magnesium capsule 400 mg PO DAILY RF: 0 fluticasone propionate 50 mcg/actuation spray,suspension 1 spray intranasal BID PRN (Reason: allergies, congestion) Qty: 16 RF: 3 albuterol sulfate 2.5 mg /3 mL (0.083 %) solution for nebulization 2.5 mg INHALATION Q8H PRN (Reason: shortness of breath or wheezing) Qty: 180 RF: 1 (DME) OneTouch Ultra Blue Test Strip Strip See Rx Instructions .ROUTE .COMPLEX Qty: 100 RF: 5 ProAir HFA 90 mcg/actuation HFA aerosol inhaler 1 puff INHALATION Q6H PRN (Reason: shortness of breath or wheezing) Qty: 8.5 RF: 0 meclizine 12.5 mg tablet 12.5 mg PO BID-TID PRN (Reason: dizziness) Qty: 60 RF: 2 Lantus U-100 Insulin 100 unit/mL solution See Rx Instructions .ROUTE .COMPLEX Qty: 10 RF: 8 metoprolol succinate 50 mg tablet extended release 24 hr 50 mg PO DAILY Qty: 90 RF: 3 lovastatin 40 mg tablet 80 mg PO DAILY Qty: 180 RF: 3 Referrals / Follow Up: Ora Jefferson MD [Primary Care Provider] - Disposition Disposition (needs filled in before D/C Order can be placed): [facility] Documented by User: Dr. Nuria Mooney MD 11/02/21 15:57 Providers Date of Admission: 10/30/21 Date of Discharge: 11/01/21 Reason For Visit: UNSTABLE ANGINA Medications at Discharge Home Medications acetaminophen 325 mg tablet 500 mg PO Q6H PRN 11/16/17 one touch ultra lancets MISCELLANEOUS 11/16/17 nitroglycerin 0.4 mg sublingual tablet 0.4 mg SUBLINGUAL Q5M PRN #25 tab 04/25/18 aspirin 81 mg tablet,delayed release 81 mg PO DAILY 03/01/19 albuterol sulfate 2.5 mg INHALATION Q8H PRN #180 ml 09/13/19 Insulin syringes #200 ea 01/14/20 multivitamin 1 tab PO DAILY 01/14/20 lisinopril 20 mg tablet 20 mg PO BID #180 tab 10/14/20 clopidogrel 75 mg tablet See Rx Instructions .ROUTE .COMPLEX #90 tab 12/15/20 blood sugar diagnostic #100 strip 12/31/20 albuterol sulfate 90 mcg/actuation aerosol inhaler 1 puff INHALATION Q6H PRN #8.5 g 02/18/21 meclizine 12.5 mg tablet 12.5 mg PO BID-TID PRN #60 tab 02/18/21 insulin glargine 100 unit/mL subcutaneous solution See Rx Instructions .ROUTE .COMPLEX #10 ml 02/19/21 magnesium oxide 400 mg PO DAILY 04/26/21 fluticasone propionate 50 mcg/actuation nasal spray,suspension 1 spray INTRANASAL BID PRN #16 g 08/09/21 metoprolol succinate 50 mg tablet,extended release 24 hr 50 mg PO DAILY #90 tab 09/13/21 lovastatin 40 mg tablet 80 mg PO DAILY #180 tab 09/17/21 ABG / Lab / Microbiology Data Result Diagrams: 11/01/21 05:10 11/01/21 05:10 Discharge Plan Admission Admit Date/Time: 10/30/21 14:57 Attending Provider: Nuria Mooney Primary Care Provider: Ora Jefferson Consulting Providers: Juma Bland Discharge Orders/Prescriptions Prescriptions: No Action acetaminophen [Tylenol] 325 mg tablet 500 mg PO Q6H PRN (Reason: Pain) RF: 0 one touch ultra lancets miscellaneous RF: 0 nitroglycerin [Nitrostat] 0.4 mg tablet, sublingual 0.4 mg SUBLINGUAL Q5M PRN (Reason: chest pain) Qty: 25 RF: 3 aspirin [Adult Aspirin Regimen] 81 mg tablet,delayed release (DR/EC) 81 mg PO DAILY RF: 0 multivitamin [Daily Multi-Vitamin] Tablet 1 tab PO DAILY RF: 0 (DME) Insulin syringes 0.5ml Qty: 200 RF: 3 clopidogrel 75 mg tablet See Rx Instructions .ROUTE .COMPLEX Qty: 90 RF: 3 lisinopril 20 mg tablet 20 mg PO BID Qty: 180 RF: 3 magnesium oxide 400 mg magnesium capsule 400 mg PO DAILY RF: 0 fluticasone propionate 50 mcg/actuation spray,suspension 1 spray intranasal BID PRN (Reason: allergies, congestion) Qty: 16 RF: 3 albuterol sulfate 2.5 mg /3 mL (0.083 %) solution for nebulization 2.5 mg INHALATION Q8H PRN (Reason: shortness of breath or wheezing) Qty: 180 RF: 1 (DME) OneTouch Ultra Blue Test Strip Strip See Rx Instructions .ROUTE .COMPLEX Qty: 100 RF: 5 ProAir HFA 90 mcg/actuation HFA aerosol inhaler 1 puff INHALATION Q6H PRN (Reason: shortness of breath or wheezing) Qty: 8.5 RF: 0 meclizine 12.5 mg tablet 12.5 mg PO BID-TID PRN (Reason: dizziness) Qty: 60 RF: 2 Lantus U-100 Insulin 100 unit/mL solution See Rx Instructions .ROUTE .COMPLEX Qty: 10 RF: 8 metoprolol succinate 50 mg tablet extended release 24 hr 50 mg PO DAILY Qty: 90 RF: 3 lovastatin 40 mg tablet 80 mg PO DAILY Qty: 180 RF: 3 Referrals / Follow Up: Ora Jefferson MD [Primary Care Provider] - Disposition Disposition (needs filled in before D/C Order can be placed): Acute Care Hospital Charges/Coding Addendum Addendum: This patient was seen in conjunction with Pily Whitlock. I have independently interviewed and examined the patient and reviewed pertinent historical, laboratory, and other data. I have reviewed her note and concur with her documentation 85-year-old female with multiple comorbidities who comes in with uncontrolled blood pressure and ongoing chest pain. She was managed as unstable angina. Cardiology was consulted. Patient was kept on heparin drip, given aspirin, Plavix, lisinopril, metoprolol. She underwent cardiac catheterization that showed high-grade stenosis of her RCA. She subsequently had successful PCI of the ostium/proximal RCA with placement of drug-eluting stent, she also had PTCA of the proximal and midportion of the RCA stent which had 95% stenosis. There was extensive calcification of the RCA. Patient had some hemodynamic instability in the Information Technology Security Manager. Patient was transferred to [facility] because of the complexity and extensive stenting of her RCA with ostial lesion as well as balloon dilatation of the proximal to mid RCA stent. The hand stripper was unable to cross the 2 balloons multiple times. Patient was transferred emergently via helicopter to [facility] Information Technology Security Manager. Physical Exam: Gen: Appeared frail, not pale, not jaundiced CVS:HS I +II, regular, no murmurs RESP: Diminished at lung bases GI: BS present and normal, soft, nontender, no palpable organs EXT:No edema
== END 2021-11-01 11:16 | disposition short-term general hospital (02) | DRG 247 ==
LOC: ED 11:49 → PCU 12:21
PROVIDERS: Internal Medicine; Nurse Practitioner Family; Emergency Provider Emergency Medicine; PCP Internal Medicine; Visit Provider Internal Medicine
DX: I25.110 Atherosclerotic heart disease of native coronary artery with unstable angina pectoris (principal); T82.855A Stenosis of coronary artery stent, initial encounter; Y83.1 Surgical operation with implant of artificial internal device as the cause of abnormal reaction of the patient, or of later complication, without mention of misadventure at the time of the procedure; I10 Essential (primary) hypertension; I16.0 Hypertensive urgency; E11.36 Type 2 diabetes mellitus with diabetic cataract; E78.5 Hyperlipidemia, unspecified; G47.33 Obstructive sleep apnea (adult) (pediatric); G89.29 Other chronic pain; I25.2 Old myocardial infarction; J44.9 Chronic obstructive pulmonary disease, unspecified; K21.9 Gastro-esophageal reflux disease without esophagitis; M15.9 Polyosteoarthritis, unspecified; M81.0 Age-related osteoporosis without current pathological fracture; Z79.4 Long term (current) use of insulin; Z79.02 Long term (current) use of antithrombotics/antiplatelets; Z79.82 Long term (current) use of aspirin; Z79.899 Other long term (current) drug therapy; Z87.891 Personal history of nicotine dependence
CPT/HCPCS: 36415; 70450; 71045; 80048; 80053; 82962; 84484; 85025; 87426; 92928; 93005; 93306; 93458; 99152; 99153; 99285; C1874; C1887; J7030; J7050; Q9967; A4216; C1725; C1769; C1894; C9600; J2405; J3490

== ENCOUNTER 2021-11-15 07:11 | Outpatient (CLI) | payer MEDICARE, SELFPAY ==
[2021-11-15 08:21] LABS: AST(SGOT) 18 U/L (15-37); Alanine Aminotransfer ALT/SGPT 29 U/L (13-56); Albumin, Serum 3.6 g/dL (3.2-5.0); Alkaline Phosphatase 68 U/L (45-117); Anion Gap 6 (5-15); BUN 13 mg/dL (7-18); BUN/Creat Ratio 18.7 RATIO (10-20); Bilirubin, Direct 0.13 mg/dL (0.00-0.30); Calcium,Total 9.5 mg/dL (8.5-10.1); Chloride 104 mmol/L (98-107); Cholesterol 171 mg/dL (200); Creatinine, Serum 0.69 mg/dL (0.55-1.02); EST Glomerular Filtration Rate 85 mL/min (>60); Est Glom Filt Rate - Afr Amer 103 mL/min (>60); Globulin 4.1 g/dL (2.2-4.2); Glucose 113 mg/dL (74-106); High Density Lipoprotein 56 mg/dL; Potassium 3.8 mmol/L (3.5-5.1); Protein, Total 7.7 g/dL (6.4-8.2); Sodium Level 138 mmol/L (136-145); Triglycerides 98 mg/dL; Very Low Density Lipoprotein 20 mg/dL (5-40)
== END 2021-11-15 23:59 | disposition short-term general hospital (02) ==
LOC: LAB 07:12
PROVIDERS: PCP Internal Medicine; Referring Provider Physician Assistant Medical; Visit Provider Physician Assistant Medical
DX: I25.10 Atherosclerotic heart disease of native coronary artery without angina pectoris (principal); E78.5 Hyperlipidemia, unspecified
CPT/HCPCS: 36415; 80048; 80061; 80076

== ENCOUNTER 2022-01-14 11:06 | Outpatient (CLI) | payer MEDICARE, SELFPAY ==
[2022-01-14 12:09] LABS: Anion Gap 2 (5-15); BUN 13 mg/dL (7-18); BUN/Creat Ratio 19.8 RATIO (10-20); Calcium,Total 9.2 mg/dL (8.5-10.1); Chloride 99 mmol/L (98-107); Creatinine, Serum 0.66 mg/dL (0.55-1.02); EST Glomerular Filtration Rate 91 mL/min (>60); Est Glom Filt Rate - Afr Amer 110 mL/min (>60); Glucose 125 mg/dL (74-106); Potassium 4.6 mmol/L (3.5-5.1); Sodium Level 133 mmol/L (136-145)
== END 2022-01-14 23:59 | disposition home or self-care (01) ==
PROVIDERS: PCP Internal Medicine; Referring Provider Internal Medicine; Visit Provider Internal Medicine
DX: I10 Essential (primary) hypertension (principal)
CPT/HCPCS: 36415; 80048

== ENCOUNTER 2022-02-27 12:45 | Emergency (ER) | payer MEDICARE, SELFPAY ==
[2022-02-27 12:46] VITALS: BP 131/60; PULSE 73; RESP 16; TEMP 35; O2SAT 96; BMI 25.7
--- NOTE | 2022-02-27 12:51 | EKG12_ITS ---
Test Reason : SYNCOPE Blood Pressure : / mmHG Vent. Rate : 054 BPM Atrial Rate : 054 BPM P-R Int : 212 ms QRS Dur : 088 ms QT Int : 514 ms P-R-T Axes : 047 -06 036 degrees QTc Int : 487 ms Sinus bradycardia with 1st degree A-V block Poor R wave progression Confirmed by BRENNAN DALEY, JEROME ([id number]), city editor JOANNA KENNEDY ([id number]) on 02/28/2022 12:58:58 PM Referred By: ESTEVAN/AJ Confirmed By:JEROME AMIN MD
--- NOTE | 2022-02-27 12:51 | CT_ITS ---
EXAM: CT HEAD WITHOUT INTRAVENOUS CONTRAST : 1935 CLINICAL INDICATION: altered mental status TECHNIQUE: Multiple axial images were obtained of the head without intravenous contrast. This CT exam was performed using one or more of the following dose reduction techniques: automated exposure control, adjustment of the mA and/or kV according to patient size, and/or use of iterative reconstruction technique. This report was created using [employer] report generation technology. COMPARISON: 10/29/2021 FINDINGS: BRAIN AND EXTRA-AXIAL SPACES: There is mild enlargement of the ventricular system and cortical sulci. There is hypoattenuation in the periventricular white matter. No intra- or extra-axial hemorrhage. No evidence of acute infarct. No intracranial mass or mass effect. There is preservation of the sanchez/white matter interface. Posterior fossa structures are unremarkable. Basal cisterns are patent. BONES/JOINTS: Unremarkable. No discrete lytic or blastic abnormalities. SINUSES: Unremarkable as visualized. Clear. MASTOID AIR CELLS: Unremarkable. Clear. ORBITS: Visualized globes, extraocular muscles, optic nerves and retrobulbar fat appear unremarkable. CT/Brain/Head without Contrast IMPRESSION: 1. No acute intracranial abnormality. There has been no significant change from the reference exam. 2. Stable underlying senescent change with small vessel ischemia. Individualized dose optimization techniques were used for this CT. at 1400 Reported and signed by: Aric Bear MD Electronically Signed: Aric Bear MD at 13:59 EDT ,
--- NOTE | 2022-02-27 12:51 | RAD_ITS ---
EXAM: XR CHEST, 1 VIEW : 1935 CLINICAL INDICATION: syncope TECHNIQUE: Frontal view of the chest. This report was created using [employer] report generation technology. COMPARISON: 10/29/2021 FINDINGS: LUNGS AND PLEURAL SPACES: Unremarkable. No consolidation or edema. No pneumothorax. No effusion. HEART: Unremarkable. Cardiac silhouette not enlarged. MEDIASTINUM: Central airways and mediastinal contour are unremarkable. BONES/JOINTS: Unremarkable. SOFT TISSUES: Unremarkable. RAD/Chest 1 View (Portable) IMPRESSION: No radiographic evidence of acute cardiopulmonary disease. at 1400 Reported and signed by: Aric Bear MD Electronically Signed: Aric Bear MD at 13:59 EDT ,
[2022-02-27] MEDS: Ondansetron 4 MG/2 ML Vial IV ×2 (12:57→13:57)
--- NOTE | 2022-02-27 12:58 | EX.ED.DYSGE1 ---
HPI History of Present Illness Chief Complaint: Syncope Informant: patient, family and EMS Narrative Narrative: 86-year-old female presents to the emergency room following a syncopal episode. Patient was sitting in the pew at [facility] and reportedly passed out. She was not waking back up. EMS notes that she was dry heaving in route and they were concerned about possible right-sided weakness. Patient denies any current pain. She notes that she feels very nauseated. No diarrhea. Daughter reports that there was an increase in her isosorbide medication recently and that she had not been tolerating it well. Family states that within an hour of taking the medicine she gets tingling around her mouth and into the left arm but only when she gets up and exerts herself. Today at [facility] she began to have nausea but did not have any vomiting. She does not recall chest pain palpitations any tachycardia her chest symptoms prior to the syncopal episode. [facility] Medical History Arthritis Atherosclerosis of coronary artery of [place] heart without angina pectoris Back pain Cataracts, bilateral Change in facial mole Chronic bronchitis Chronic sinusitis COPD (chronic obstructive pulmonary disease) Coronary artery disease Dog scratch Emphysema lung Essential (primary) hypertension GERD (gastroesophageal reflux disease) GERD (gastroesophageal reflux disease) Herniated disc Hyperlipidemia Leg cramps Obesity Osteoarthritis Osteoporosis Pigmented skin lesion suspicious for malignant neoplasm Rupture herniated disc Sinusitis Sleep apnea Type 2 diabetes mellitus Vertigo Home Medications acetaminophen 325 mg tablet 500 mg PO Q6H PRN 11/16/17 [History Last Taken Unknown] one touch ultra lancets MISCELLANEOUS 11/16/17 [History Last Taken Unknown] nitroglycerin 0.4 mg sublingual tablet 0.4 mg SUBLINGUAL Q5M PRN #25 tab 04/25/18 [Rx Last Taken Unknown] aspirin 81 mg tablet,delayed release 81 mg PO DAILY 03/01/19 [History Last Taken Unknown] albuterol sulfate 2.5 mg INHALATION Q8H PRN #180 ml 09/13/19 [Rx Last Taken Unknown] Insulin syringes #200 ea 01/14/20 [Rx Last Taken Unknown] multivitamin 1 tab PO DAILY 01/14/20 [History Last Taken Unknown] albuterol sulfate 90 mcg/actuation aerosol inhaler 1 puff INHALATION Q6H PRN #8.5 g 02/18/21 [Rx Last Taken Unknown] meclizine 12.5 mg tablet 12.5 mg PO BID-TID PRN #60 tab 02/18/21 [Rx Last Taken Unknown] insulin glargine 100 unit/mL subcutaneous solution See Rx Instructions .ROUTE .COMPLEX #10 ml 02/19/21 [Rx Last Taken Unknown] magnesium oxide 400 mg PO DAILY 04/26/21 [History Last Taken Unknown] fluticasone propionate 50 mcg/actuation nasal spray,suspension 1 spray INTRANASAL BID PRN #16 g 08/09/21 [Rx Last Taken Unknown] lovastatin 40 mg tablet 80 mg PO DAILY #180 tab 09/17/21 [Rx Last Taken Unknown] clopidogrel 75 mg tablet 75 mg PO DAILY #90 tab 11/22/21 [Rx Last Taken Unknown] lisinopril 20 mg tablet 20 mg PO BID #180 tab 12/23/21 [Rx Last Taken Unknown] amoxicillin 875 mg-potassium clavulanate 125 mg tablet 1 tab PO Q12H #20 tab 01/14/22 [Rx Last Taken Unknown] hydrochlorothiazide 25 mg tablet 25 mg PO QAM #90 tab 01/14/22 [Rx Last Taken Unknown] metoprolol succinate 50 mg tablet,extended release 24 hr 50 mg PO BID #180 tab 01/14/22 [Rx Last Taken Unknown] pantoprazole 40 mg tablet,delayed release 40 mg PO DAILY #90 tab 01/14/22 [Rx Last Taken Unknown] ranolazine 500 mg tablet,extended release,12 hr ea PO 01/14/22 [History Last Taken Unknown] blood sugar diagnostic #100 strip 02/17/22 [Rx Last Taken Unknown] isosorbide mononitrate mg PO 02/27/22 [History Last Taken Unknown] Allergy/AdvReac Type Severity Reaction Status Date / Time codeine AdvReac Nausea/Vom/ Verified 02/27/22 13:14 Diarrhea Family History Sister Cancer passed of lung CA at 45 Grandmother Diabetes Heart disease CVA (cerebral vascular accident) Mother Diabetes Heart disease Brother Heart disease Myocardial infarction Daughter Arthritis Son Heart disease Surgical History History of History of carpal tunnel release History of carpal tunnel surgery history of cataracts removal History of section History of coronary artery stent placement (11/01/21) History of left heart catheterization (11/01/21) Status post trigger finger release Social History Smoking Status: Former smoker how long ago did patient quit smokin alcohol intake: never substance use type: does not use what type of physical activity do you participate in: walking frequency: daily ROS ROS ED Constitutional Constitutional ED: Denies chills or weight loss Eyes Eyes: Denies change in vision or diplopia ENT ENT ED: Denies ear pain, rhinorrhea or sore throat Cardiovascular Cardiovascular: Reports other Details: Syncope ; Denies chest pain, orthopnea, palpitations or racing heartbeat Respiratory/Chest Respiratory/Chest: Denies cough, dyspnea or orthopnea Gastrointestinal Gastrointestinal: Reports nausea; Denies abdominal pain, diarrhea or vomiting Genitourinary Genitourinary ED: Denies dysuria, hematuria or urinary frequency Musculoskeletal Musculoskeletal: Denies arthralgias or myalgias Integumentary Denies abscess or rash Neurologic Neurologic: Denies headache(s) or weakness Psychiatric Psychiatric: Denies anxiety, depression, suicidal ideation or suicidal thoughts Endocrine Endocrinology: Denies polydipsia, polyphagia or polyuria Allergic/Immunologic Allergic/Immunologic ED: Denies mouth swelling, tongue swelling or urticaria EXAM Physical Exam Narrative Exam Narrative: Patient appears to be having some dry heaves Const Vital Signs: 02/27/22 12:46 02/27/22 12:51 02/27/22 13:45 Temperature 95.0 F L Temperature Source Temporal Pulse Rate 73 54 L Respiratory Rate 16 17 Respiratory Effort Normal Non-Labored Blood Pressure 131/60 H 150/64 H Blood Pressure Mean 83 92 Pulse Ox 96 96 Oxygen Delivery Method Room Air Positive well nourished, well developed and obese General Appearance ED: well developed Nutritional Appearance: obese HEENT Reports normocephalic, head/scalp atraumatic, TM's clear and moist mucous membranes Negative for trauma Tympanic Membrane ED: Yes TM's clear Eyes PERRL and EOMs intact bilaterally Neck no lymphadenopathy, supple and no JVD Resp normal respiratory effort and clear to auscultation bilaterally Cardio regular rate, regular rhythm and no murmurs GI normal to inspection, nondistended, normoactive bowel sounds and non-tender Palpation: soft Back/Spine no CVA tenderness and normal ROM Extremity normal to inspection General Extremety ED: Negative for edema General Extremity: Negative for edema Neuro oriented x3, CN's II-XII intact bilaterally and no sensory deficits noted Neuro Narrative: Patient appears globally weak but moves all extremities and sensation preserved Sensorium / Orientation: alert Motor Exam: strength 5/5 throughout Psych mental status grossly normal Mood & Affect: Negative for depressed or tearful Skin no rashes or lesions noted and no wounds MDM MDM MDM Narrative Medical decision making narrative: Basic blood work showed a glucose of 163. Normal lactic acid and troponin. She had no events on the monitor. After 2 doses of nausea the patient is now tolerating fluids and crackers. She feels clinically much better. My interpretation of her chest x-ray is no acute process. CT the brain was negative. I have a NIH of 0. At this point I think this is most likely a vagal syncope. Patient would like to stop her isosorbide nitrate until she can talk to her doctor tomorrow I do not think that this is going to cause any significant problems tonight. Lab Data Attestation: I reviewed the patient's lab results. Labs: Laboratory Results - last 24 hr 02/27/22 02/27/22 02/27/22 12:40 12:40 12:40 WBC 8.0 RBC 3.72 L Hgb 11.2 L Hct 32.2 L MCV 86.6 MCH 30.1 MCHC 34.8 RDW Std Deviation 42.4 RDW Coeff of Elke 13.5 Plt Count 285 MPV 8.4 Immature Gran % (Auto) 0.500 Neut % (Auto) 80.8 H Lymph % (Auto) 9.7 L [place] % (Auto) 7.8 Eos % (Auto) 0.8 Baso % (Auto) 0.4 Absolute Neuts (auto) 6.5 Absolute Lymphs (auto) 0.77 L Nucleated RBC % 0 Sodium 127 L Potassium 3.9 Chloride 93 L Carbon Dioxide 25.0 Anion Gap 9 BUN 12 Creatinine 0.75 Estim Creat Clear Calc 37.01 Est GFR (MDRD) Af Amer 95 Est GFR (MDRD) Non-Af 78 BUN/Creatinine Ratio 16.1 Glucose 163 H Lactic Acid 0.9 Calcium 8.5 Total Bilirubin 0.30 AST 13 L ALT 23 Alkaline Phosphatase 50 Troponin I High Sens 16 Total Protein 6.6 Albumin 3.5 Globulin 3.1 Albumin/Globulin Ratio 1.1 Urine Color Urine Clarity Urine pH Ur Specific [place] Urine Protein Urine Glucose (UA) Urine Ketones Urine Occult Blood Urine Nitrite Urine Bilirubin Urine Urobilinogen Ur Leukocyte Esterase Urine RBC Urine WBC Ur Squamous Epith Cells Urine Bacteria Urine Mucus 02/27/22 14:10 WBC RBC Hgb Hct MCV MCH MCHC RDW Std Deviation RDW Coeff of [place] Plt Count MPV Immature Gran % (Auto) Neut % (Auto) Lymph % (Auto) [place] % (Auto) Eos % (Auto) Baso % (Auto) Absolute Neuts (auto) Absolute Lymphs (auto) Nucleated RBC % Sodium Potassium Chloride Carbon Dioxide Anion Gap BUN Creatinine Estim Creat Clear Calc Est GFR (MDRD) Af Amer Est GFR (MDRD) Non-Af BUN/Creatinine Ratio Glucose Lactic Acid Calcium Total Bilirubin AST ALT Alkaline Phosphatase Troponin I High Sens Total Protein Albumin Globulin Albumin/Globulin Ratio Urine Color Yellow Urine Clarity Clear Urine pH 7.0 Ur Specific [place] 1.010 Urine Protein 15 H Urine Glucose (UA) Normal Urine Ketones 15 H Urine Occult Blood 10 H Urine Nitrite Negative Urine Bilirubin Negative Urine Urobilinogen Normal Ur Leukocyte Esterase 25 H Urine RBC 0-5 SEEN Urine WBC 5-10 SEEN Ur Squamous Epith Cells 0-5 SEEN Urine Bacteria RARE Urine Mucus 0 SEEN Radiography Diagnostic Testing: Clinical Impression(s) from Imaging Studies Brain CT 02/27/22 12:51 IMPRESSION: 1. No acute intracranial abnormality. There has been no significant change from the reference exam. 2. Stable underlying senescent change with small vessel ischemia. Individualized dose optimization techniques were used for this CT. at 1400 Reported and signed by: Aric Bear MD Electronically Signed: Aric Bear MD at 13:59 EDT , Chest X-Ray 02/27/22 12:51 IMPRESSION: No radiographic evidence of acute cardiopulmonary disease. at 1400 Reported and signed by: Aric Bear MD Electronically Signed: Aric Bear MD at 13:59 EDT Reading Location ID and State: [facility] / [place] Tel , Service support , EKG Initial EKG: Attestation: I personally reviewed and interpreted this EKG as follows: Interpretation: Sinus Rhythm Comments: Sinus bradycardia with a ventricular rate of 54 bpm. Noted first-degree AV block. Discharge Plan Triage Chief Complaint: Syncope ED Provider: Raghav Allen Dx/Rx/DC Orders Clinical Impression: Syncope, Nausea Instructions: Causes of Syncope Prescriptions: No Action acetaminophen [Tylenol] 325 mg tablet 500 mg PO Q6H PRN (Reason: Pain) RF: 0 one touch ultra lancets miscellaneous RF: 0 nitroglycerin [Nitrostat] 0.4 mg tablet, sublingual 0.4 mg SUBLINGUAL Q5M PRN (Reason: chest pain) Qty: 25 RF: 3 aspirin [Adult Aspirin Regimen] 81 mg tablet,delayed release (DR/EC) 81 mg PO DAILY RF: 0 multivitamin [Daily Multi-Vitamin] Tablet 1 tab PO DAILY RF: 0 (DME) Insulin syringes 0.5ml Qty: 200 RF: 3 magnesium oxide 400 mg magnesium capsule 400 mg PO DAILY RF: 0 fluticasone propionate 50 mcg/actuation spray,suspension 1 spray intranasal BID PRN (Reason: allergies, congestion) Qty: 16 RF: 3 ranolazine 500 mg tablet extended release 12 hr PO RF: 0 metoprolol succinate 50 mg tablet extended release 24 hr 50 mg PO BID Qty: 180 RF: 3 pantoprazole 40 mg tablet,delayed release (DR/EC) 40 mg PO DAILY Qty: 90 RF: 2 amoxicillin-pot clavulanate 875-125 mg tablet 1 tab PO Q12H Qty: 20 RF: 0 isosorbide mononitrate 30 mg tablet extended release 24 hr PO RF: 0 albuterol sulfate 2.5 mg /3 mL (0.083 %) solution for nebulization 2.5 mg INHALATION Q8H PRN (Reason: shortness of breath or wheezing) Qty: 180 RF: 1 ProAir HFA 90 mcg/actuation HFA aerosol inhaler 1 puff INHALATION Q6H PRN (Reason: shortness of breath or wheezing) Qty: 8.5 RF: 0 meclizine 12.5 mg tablet 12.5 mg PO BID-TID PRN (Reason: dizziness) Qty: 60 RF: 2 Lantus U-100 Insulin 100 unit/mL solution See Rx Instructions .ROUTE .COMPLEX Qty: 10 RF: 8 lovastatin 40 mg tablet 80 mg PO DAILY Qty: 180 RF: 3 clopidogrel 75 mg tablet 75 mg PO DAILY Qty: 90 RF: 3 lisinopril 20 mg tablet 20 mg PO BID Qty: 180 RF: 3 hydrochlorothiazide 25 mg tablet 25 mg PO QAM Qty: 90 RF: 1 (DME) OneTouch Ultra Blue Test Strip Strip See Rx Instructions .ROUTE .COMPLEX Qty: 100 RF: 5 Primary Care Provider: Ora Jefferson Referrals: Ora Jefferson MD [Primary Care Provider] - Disposition Disposition: Home, Self Care
[2022-02-27 13:18] LABS: Absolute Lymphocyte Count 0.77 X10^3/uL (0.83-4.51); Absolute Neutrophil Count 6.5 X10^3/uL (2.0-7.7); Basophil# 0.03 X10^3/uL; Basophil% 0.4 % (0-1); Eosinophil# 0.06 X10^3/uL; Eosinophils% 0.8 % (0-5); Hematocrit 32.2 % (37-47); Hemoglobin 11.2 g/dL (12.0-15.0); Lymphocyte # 0.77 X10^3/ul (0.83-4.51); Lymphocyte % 9.7 % (19-41); Mean Corp Hgb Conc 34.8 g/dL (32-36); Mean Corpuscular Hgb 30.1 pg (27.0-32.0); Mean Corpuscular Volume 86.6 fL (81-99); Mean Platelet Vol. 8.4 fl (6.2-12.0); Monocyte# 0.62 X10^3/uL; Monocyte% 7.8 % (0-10); NRBC Flagged by Analyzer 0 % (0-5); Neutrophil # 6.45 X10^3/uL (2.7-7.7); Neutrophil % 80.8 % (47-70); Platelet Count 285 K/mm3 (150-450); RBC Distribution Width CV 13.5 % (11.6-14.6); RBC Distribution Width SD 42.4 fl (35.1-43.9); Red Blood Count 3.72 M/mm3 (4.2-5.4)
[2022-02-27 13:26] LABS: Lactic Acid 0.9 mmol/L (0.4-1.9)
[2022-02-27 13:45] VITALS: BP 150/64; PULSE 54; RESP 17; O2SAT 96
[2022-02-27 13:45] LABS: ALB/GLOB Ratio 1.1 RATIO (0.9-2.4); AST(SGOT) 13 U/L (15-37); Alanine Aminotransfer ALT/SGPT 23 U/L (13-56); Albumin, Serum 3.5 g/dL (3.2-5.0); Alkaline Phosphatase 50 U/L (45-117); Anion Gap 9 (5-15); BUN 12 mg/dL (7-18); BUN/Creat Ratio 16.1 RATIO (10-20); Calcium,Total 8.5 mg/dL (8.5-10.1); Chloride 93 mmol/L (98-107); Creatinine, Serum 0.75 mg/dL (0.55-1.02); EST Glomerular Filtration Rate 78 mL/min (>60); Est Glom Filt Rate - Afr Amer 95 mL/min (>60); Estimated Creatinine Clearance 37.01 ml/min; Globulin 3.1 g/dL (2.2-4.2); Glucose 163 mg/dL (74-106); Potassium 3.9 mmol/L (3.5-5.1); Protein, Total 6.6 g/dL (6.4-8.2); Sodium Level 127 mmol/L (136-145); Troponin-I HS 16 pg/mL (3.0-54.0)
[2022-02-27 14:17] LABS: Mucous, Urine 0 SEEN /hpf (<or=2+)
[2022-02-27 14:21] LABS: Color, Urine Yellow (Yellow); Glucose, Dipstick Normal (Normal); Ketone-Dipstick 15 mg/dl (Negative); Leukocyte Esterase-Dipstick 25 /ul (Negative); Nitrite-Dipstick Negative (Negative); Occult Blood-Urine 10 /ul (Negative); Protein-Dipstick 15 mg/dl (Negative); Urine Bilirubin Dipstick Negative (Negative); Urine Clarity Clear (Clear); Urine Urobilinogen Normal (Normal)
[2022-02-27 14:29] LABS: Bacteria RARE /hpf (None Seen); Red Blood Cells-Urine 0-5 SEEN /hpf (0-5); Squamous Epithelial Cells - UA 0-5 SEEN /hpf (5-10); White Blood Cells 5-10 SEEN /hpf (0-5)
[2022-02-27 15:38] VITALS: BP 135/50; PULSE 56; RESP 13; O2SAT 96
== END 2022-02-27 16:00 | disposition home or self-care (01) ==
PROVIDERS: Emergency Provider Emergency Medicine; PCP Internal Medicine; Visit Provider Emergency Medicine
DX: R55 Syncope and collapse (principal); J44.9 Chronic obstructive pulmonary disease, unspecified; E11.9 Type 2 diabetes mellitus without complications; Z79.4 Long term (current) use of insulin; R11.0 Nausea; I25.10 Atherosclerotic heart disease of native coronary artery without angina pectoris; M19.90 Unspecified osteoarthritis, unspecified site; I10 Essential (primary) hypertension; K21.9 Gastro-esophageal reflux disease without esophagitis; E78.5 Hyperlipidemia, unspecified; E66.9 Obesity, unspecified; G47.30 Sleep apnea, unspecified; Z79.82 Long term (current) use of aspirin; Z79.899 Other long term (current) drug therapy; Z95.5 Presence of coronary angioplasty implant and graft; I44.0 Atrioventricular block, first degree; Z68.25 Body mass index [BMI] 25.0-25.9, adult
CPT/HCPCS: 70450; 71045; 80053; 81001; 83605; 84484; 85025; 93005; 96374; 96376; 99285; A4216; J2405

== ENCOUNTER → 2022-03-11 | Outpatient (CLI) | payer MEDICARE, SELFPAY ==
--- NOTE | 2022-03-11 09:49 | ART_ITS ---
Reason For Study: PVD Procedure A bilateral lower extremity continuous wave Doppler with analog waveform analysis,segmental pressures,and ankle brachial indexes without exercise. Left Segmental Pressures Left brachial= 177mmHg. Left posterior tibial artery = 214mmHg. Left dorsalis pedis artery = 179mmHg. Left digit = 120 mmHg. Right Segmental Pressures Right brachial= 168mmHg. Right posterior tibial artery = 245mmHg. Right dorsalis pedis artery = 203mmHg. Right digit = 128 mmHg. Indices The right ankle brachial index by the posterior tibial artery is 1.38. The right ankle brachial index by the dorsalis pedis is 1.15. The right digital-brachial index is 0.72. The left ankle brachial index by the posterior tibial artery is 1.21. The left ankle brachial index by the dorsalis pedis is 1.01. The left digital-brachial index is 0.68. VL/Lower Ext Art Exam w/o Exercis Interpretation Summary Triphasic Doppler waveforms are noted at ankle level bilaterally. Pulse-volume recordings appear diminished at left digital level, but satisfactory at all other levels bilatera lly. Resting ankle- brachial indices are normal bilaterally. The right digital-brachial index is no rmal. The left digital-brachial index is mildly diminished. Arterial flow appears normal at ankle level bilaterally, and at digital level o n the right. There is evidence of mild arterial occlusive disease at digital level on the left. Ordering Physician: Raghav Kuhn Referring Physician: Raghav Kuhn Performed By: Herlinda Gutierrez RDCS/RVT
== END | disposition home or self-care (01) ==
LOC: CVS 09:47
PROVIDERS: PCP Internal Medicine; Referring Provider Podiatrist; Visit Provider Podiatrist
DX: I73.9 Peripheral vascular disease, unspecified (principal)
CPT/HCPCS: 93923

== ENCOUNTER → 2022-04-15 | Outpatient (CLI) | payer MEDICARE, SELFPAY ==
[2022-04-15 12:17] LABS: Anion Gap 8 (5-15); BUN 12 mg/dL (7-18); BUN/Creat Ratio 15.5 RATIO (10-20); Calcium,Total 9.3 mg/dL (8.5-10.1); Chloride 94 mmol/L (98-107); Creatinine, Serum 0.78 mg/dL (0.55-1.02); EST Glomerular Filtration Rate 75 mL/min (>60); Est Glom Filt Rate - Afr Amer 91 mL/min (>60); Glucose 224 mg/dL (74-106); Potassium 4.1 mmol/L (3.5-5.1); Sodium Level 128 mmol/L (136-145)
== END | disposition home or self-care (01) ==
LOC: BIMLAB 10:34
PROVIDERS: PCP Internal Medicine; Referring Provider Internal Medicine; Visit Provider Internal Medicine
DX: I10 Essential (primary) hypertension (principal)
CPT/HCPCS: 36415; 80048

== ENCOUNTER → 2022-07-25 | Outpatient (CLI) | payer MEDICARE, SELFPAY ==
--- NOTE | 2022-07-25 10:44 | RAD_ITS ---
INDICATION: PAIN EXAMINATION/TECHNIQUE: X-RAY - LEFT XR Hip Unilateral with Pelvis when performed; 2-3 Views 3 VIEWS COMPARISON: None. FINDINGS: SOFT TISSUES: No soft tissue swelling or gas. No radiopaque foreign body. BONES/JOINTS: No acute fracture or subluxation.. There is normal alignment. Moderate osteophyte formation arising from the acetabular lip bilaterally. Preservation of the joint space.. No sclerotic or destructive changes observed. Normal appearance of visualized sacrum and sacroiliac joints. Pelvic ring is intact. RAD/HIP, UNI W/ Pelvis 2-3 Views IMPRESSION: 1. Moderate osteophyte formation arising from the acetabular lip bilaterally. Joint space maintained, no evidence of fracture or destructive bony process. Joint space maintained. Electronically Signed: Cecilio Serna MD at 0:41 EDT ,
== END | disposition home or self-care (01) ==
LOC: RAD 10:35
PROVIDERS: PCP Internal Medicine; Referring Provider Anesthesiology Pain Medicine; Visit Provider Anesthesiology Pain Medicine
DX: M16.12 Unilateral primary osteoarthritis, left hip (principal)
CPT/HCPCS: 73502

== ENCOUNTER → 2022-08-19 | Outpatient (CLI) | payer MEDICARE, SELFPAY ==
[2022-08-19 12:06] LABS: Absolute Lymphocyte Count 1.16 X10^3/uL (0.83-4.51); Absolute Neutrophil Count 6.2 X10^3/uL (2.0-7.7); Basophil# 0.03 X10^3/uL; Basophil% 0.4 % (0-1); Eosinophil# 0.08 X10^3/uL; Hemoglobin 13.2 g/dL (12.0-15.0); Lymphocyte # 1.16 X10^3/ul (0.83-4.51); Lymphocyte % 14.3 % (19-41); Mean Corpuscular Hgb 31.7 pg (27.0-32.0); Mean Corpuscular Volume 95.9 fL (81-99); Mean Platelet Vol. 8.5 fl (6.2-12.0); Monocyte# 0.65 X10^3/uL; NRBC Flagged by Analyzer 0 % (0-5); Neutrophil # 6.16 X10^3/uL (2.7-7.7); Neutrophil % 75.8 % (47-70); Platelet Count 293 K/mm3 (150-450); RBC Distribution Width CV 13.2 % (11.6-14.6); RBC Distribution Width SD 47.2 fl (35.1-43.9); Red Blood Count 4.17 M/mm3 (4.2-5.4); White Blood Count 8.1 K/mm3 (4.4-11.0)
[2022-08-19 12:33] LABS: AST(SGOT) 15 U/L (15-37); Alanine Aminotransfer ALT/SGPT 26 U/L (13-56); Albumin, Serum 3.7 g/dL (3.2-5.0); Alkaline Phosphatase 56 U/L (45-117); Anion Gap 7 (5-15); BUN 13 mg/dL (7-18); BUN/Creat Ratio 17.6 RATIO (10-20); Calcium,Total 9.2 mg/dL (8.5-10.1); Chloride 95 mmol/L (98-107); Creatinine, Serum 0.74 mg/dL (0.55-1.02); EST Glomerular Filtration Rate 79 mL/min (>60); Est Glom Filt Rate - Afr Amer 96 mL/min (>60); Globulin 3.6 g/dL (2.2-4.2); Glucose 120 mg/dL (74-106); Potassium 4.8 mmol/L (3.5-5.1); Protein, Total 7.3 g/dL (6.4-8.2); Sodium Level 130 mmol/L (136-145)
== END | disposition home or self-care (01) ==
LOC: BIMLAB 10:47
PROVIDERS: PCP Internal Medicine; Referring Provider Internal Medicine; Visit Provider Internal Medicine
DX: E11.9 Type 2 diabetes mellitus without complications (principal)
CPT/HCPCS: 36415; 80053; 85025

== ENCOUNTER → 2022-12-19 | Outpatient (CLI) | payer OTHER, SELFPAY ==
[2022-12-19 15:42] LABS: Anion Gap 8 (5-15); BUN 12 mg/dL (7-18); BUN/Creat Ratio 17.6 RATIO (10-20); Calcium,Total 8.8 mg/dL (8.5-10.1); Chloride 99 mmol/L (98-107); Creatinine, Serum 0.68 mg/dL (0.55-1.02); EST Glomerular Filtration Rate 87 mL/min (>60); Est Glom Filt Rate - Afr Amer 105 mL/min (>60); Glucose 143 mg/dL (74-106); Potassium 5.7 mmol/L (3.5-5.1); Sodium Level 131 mmol/L (136-145)
== END | disposition home or self-care (01) ==
LOC: BIMLAB 11:42
PROVIDERS: PCP Internal Medicine; Visit Provider Internal Medicine
DX: I10 Essential (primary) hypertension (principal)
CPT/HCPCS: 36415; 80048

== ENCOUNTER → 2022-12-20 | Outpatient (CLI) | payer MEDICARE, SELFPAY ==
--- NOTE | 2022-12-20 13:38 | RAD_ITS ---
STUDY: X-RAY - LEFT SHOULDER REASON FOR EXAM: Female, 87 years old. Left shoulder pain. TECHNIQUE: 3 view(s) of the shoulder. COMPARISON: None. FINDINGS: Osteopenia. Mild arthrosis of the glenohumeral joint. Mild arthrosis at the AC joint. Normal acromion. Sclerosis and cystic changes of the humeral head. The soft tissue structures are unremarkable. Normal visualized pulmonary apex. RAD/Shoulder min 2 Views IMPRESSION: Osteopenia with osteoarthritic changes as described. No acute abnormality or erosive changes. Electronically Signed: Tani Walker, at 15:16 EST ,
== END | disposition home or self-care (01) ==
LOC: RAD 13:38
PROVIDERS: PCP Internal Medicine; Referring Provider Internal Medicine; Visit Provider Internal Medicine
DX: M25.512 Pain in left shoulder (principal)
CPT/HCPCS: 73030

== ENCOUNTER → 2023-01-05 | Outpatient (CLI) | payer MEDICARE, SELFPAY ==
[2023-01-05 13:49] LABS: Anion Gap 7 (5-15); BUN 13 mg/dL (7-18); BUN/Creat Ratio 18.4 RATIO (10-20); Calcium,Total 9.4 mg/dL (8.5-10.1); Chloride 93 mmol/L (98-107); Creatinine, Serum 0.71 mg/dL (0.55-1.02); EST Glomerular Filtration Rate 84 mL/min (>60); Est Glom Filt Rate - Afr Amer 101 mL/min (>60); Glucose 162 mg/dL (74-106); Potassium 3.8 mmol/L (3.5-5.1); Sodium Level 127 mmol/L (136-145)
== END | disposition home or self-care (01) ==
LOC: LAB 12:59
PROVIDERS: PCP Internal Medicine; Referring Provider Internal Medicine; Visit Provider Internal Medicine
DX: E87.5 Hyperkalemia (principal)
CPT/HCPCS: 36415; 80048

== ENCOUNTER 2023-04-08 12:46 | Emergency (ER) | payer MEDICARE, SELFPAY ==
[2023-04-08 12:48] VITALS: BP 136/52; PULSE 62; RESP 22; TEMP 36.3; O2SAT 95; BMI 25.4
--- NOTE | 2023-04-08 12:56 | EKG12_ITS ---
Test Reason : SYNCOPE Blood Pressure : / mmHG Vent. Rate : 060 BPM Atrial Rate : 060 BPM P-R Int : 196 ms QRS Dur : 094 ms QT Int : 486 ms P-R-T Axes : 042 -15 050 degrees QTc Int : 486 ms Normal sinus rhythm Left ventricular hypertrophy with repolarization abnormality ( R in aVL , [place] product ) Abnormal ECG Confirmed by PETER DALEY, JEFF ([id number]), dictionary editor JOANNA KENNEDY ([id number]) on 04/11/2023 10:27:45 AM Referred By: STEFANIE Confirmed By:JEFF GREEN MD
--- NOTE | 2023-04-08 12:56 | RAD_ITS ---
STUDY: X-RAY CHEST REASON FOR EXAM: Female, 87 years old. Chest pain TECHNIQUE: Frontal view of the chest COMPARISON: 02/27/2022 FINDINGS: The lungs are clear. There are no pleural effusions. There is no pneumothorax. The heart is normal in size. The visualized osseous structures are within normal limits. RAD/Chest 1 View (Portable) IMPRESSION: No acute thoracic pathology. Electronically Signed: Gregg Tineo MD at 13:43 EDT ,
--- NOTE | 2023-04-08 12:57 | EDS_ITS ---
HPI History of Present Illness Chief Complaint: Chest Pain Narrative Narrative: Patient presents with nausea and vomiting. Apparently she went to the store with her daughter she developed heart racing but no real chest pain although she has a history of angina. She was given nitroglycerin and she felt quite weak and lightheaded after that and she felt nauseated. She was hypotensive per paramedics when they got there. She had a near syncopal episode this is after the nitroglycerin. Blood pressure improved since then. Patient is nauseated now, otherwise she does not have other complaints she has no chest pain. She does not feel her heart racing. [facility] Medical History Arthritis Atherosclerosis of coronary artery of [place] heart without angina pectoris Back pain Cataracts, bilateral Change in facial mole Chronic bronchitis Chronic sinusitis COPD (chronic obstructive pulmonary disease) Coronary artery disease Dog scratch Easy fatigability Emphysema lung Essential (primary) hypertension Flu vaccine need GERD (gastroesophageal reflux disease) GERD (gastroesophageal reflux disease) Herniated disc Hyperkalemia Hyperlipidemia Hyponatremia Left shoulder pain Leg cramps Neuropathy Obesity Osteoarthritis Osteoporosis Pigmented skin lesion suspicious for malignant neoplasm Rupture herniated disc Sinusitis Sleep apnea Type 2 diabetes mellitus Vertigo Home Medications acetaminophen 325 mg tablet (Tylenol) 500 mg PO Q6H PRN Pain 11/16/17 [History Last Taken Unknown] one touch ultra lancets miscellaneous 11/16/17 [History Last Taken Unknown] nitroglycerin 0.4 mg sublingual tablet (Nitrostat) 0.4 mg sublingual Q5M PRN chest pain #25 tabs 04/25/18 [Rx Last Taken Unknown] aspirin 81 mg tablet,delayed release (Adult Aspirin Regimen) 81 mg PO DAILY 03/01/19 [History Last Taken Unknown] albuterol sulfate 2.5 mg/3 mL (0.083 %) solution for nebulization 2.5 mg (3 mL) inhalation Q8H PRN shortness of breath or wheezing #180 mL 09/13/19 [Rx Last Taken Unknown] Insulin syringes #200 ea 01/14/20 [Rx Last Taken Unknown] multivitamin (Daily Multi-Vitamin tablet) 1 tab PO DAILY 01/14/20 [History Last Taken Unknown] meclizine 12.5 mg tablet 12.5 mg PO BID-TID PRN dizziness #60 tabs 02/18/21 [Rx Last Taken Unknown] magnesium oxide 400 mg PO DAILY 04/26/21 [History Last Taken Unknown] clopidogrel 75 mg tablet 75 mg PO DAILY #90 tabs 11/22/21 [Rx Last Taken Unknown] metoprolol succinate 50 mg tablet,extended release 24 hr 50 mg PO BID #180 tabs 01/14/22 [Rx Last Taken Unknown] blood sugar diagnostic #100 strips 02/17/22 [Rx Last Taken Unknown] losartan 100 mg tablet 100 mg PO DAILY #90 tabs 04/15/22 [Rx Last Taken Unknown] ranolazine 500 mg tablet,extended release,12 hr 500 mg PO DAILY 04/15/22 [History Last Taken Unknown] albuterol sulfate 90 mcg/actuation aerosol inhaler (ProAir HFA) 1 puff inhalation Q6H PRN shortness of breath or wheezing #8.5 grams 09/23/22 [Rx Last Taken Unknown] blood-glucose meter #1 ea 11/24/22 [Rx Last Taken Unknown] insulin glargine 100 unit/mL subcutaneous solution (Lantus U-100 Insulin) 17 unit (0.17 mL) subcut DAILY #10 mL 11/24/22 [Rx Last Taken Unknown] hydralazine 50 mg tablet 50 mg PO BID 12/19/22 [History Last Taken Unknown] lovastatin 40 mg tablet 80 mg PO DAILY #180 tabs 12/20/22 [Rx Last Taken Unknown] furosemide 20 mg tablet 40 mg PO DAILY 04/03/23 [History Last Taken Unknown] Allergy/AdvReac Type Severity Reaction Status Date / Time isosorbide AdvReac Unknown Passed out Verified 04/08/23 12:56 codeine AdvReac Nausea/Vom/ Verified 04/08/23 12:56 Diarrhea Family History Sister Cancer passed of lung CA at 45 Grandmother Diabetes Heart disease CVA (cerebral vascular accident) Mother Diabetes Heart disease Brother Heart disease Myocardial infarction Daughter Arthritis Son Heart disease Surgical History History of History of carpal tunnel release History of carpal tunnel surgery history of cataracts removal History of section History of coronary artery stent placement (11/01/21) History of left heart catheterization (11/01/21) Status post trigger finger release Social History Smoking Status: Former smoker how long ago did patient quit smokin alcohol intake: never substance use type: does not use what type of physical activity do you participate in: walking frequency: daily ROS ROS ED ROS Narrative Past medical history: Reviewed, includes history of electrolyte imbalances, GERD, CAD, hypertension, hyperlipidemia, type 2 diabetes, COPD Medications: Reviewed Social history: Noncontributory Review of systems: All systems negative except as indicated General: No fever. Lightheadedness as in HPI this resolved Eyes: No visual changes ENT: No upper airway congestion, normal voice Neck: No neck pain Cardiovascular: No chest pain. She had palpitations earlier Respiratory: No shortness of breath or cough Gastrointestinal: No abdominal pain. Nausea and vomiting Genitourinary: No dysuria Musculoskeletal: Denies myalgias no difficulty with ambulation Skin: No rash Neurological: No memory loss, confusion or any focal weakness EXAM Physical Exam Narrative Exam Narrative: Physical exam General: Patient appears uncomfortable Head: Normocephalic, Atraumatic Eyes: Conjunctiva not pale ENT: Moist mucous membranes Neck: Supple, Nontender, No lymphadenopathy Cardiovascular: Regular rate, Regular rhythm, no obvious murmur Respiratory: No distress, CTA bilaterally Abdomen: Soft, Nontender, Nondistended Back: Nontender, Normal Inspection. Negative for: CVA tenderness Extremities: Nontender, No edema Skin: Normal color, No rash Neurological: Alert, Normal Strength, Normal Sensation Const Vital Signs: 04/08/23 12:48 04/08/23 13:05 04/08/23 14:05 Temperature 97.3 F L Temperature Source Temporal Pulse Rate 62 63 Pulse Rate [Lying] Pulse Rate [Sitting (for 1 minute prior to obtaining)] Pulse Rate [Standing (for 1 minute prior to obtaining)] Respiratory Rate 22 H 14 Blood Pressure 136/52 H 122/52 H Blood Pressure [Lying] Blood Pressure [Sitting (for 1 minute prior to obtaining)] Blood Pressure [Standing (for 1 minute prior to obtaining)] Blood Pressure Mean 80 75 Blood Pressure Mean [Lying] Blood Pressure Mean [Sitting (for 1 minute prior to obtaining)] Blood Pressure Mean [Standing (for 1 minute prior to obtaining)] Pulse Ox 95 99 Oxygen Delivery Method Room Air Room Air Room Air 04/08/23 14:10 Temperature Temperature Source Pulse Rate Pulse Rate [Lying] 57 L Pulse Rate [Sitting (for 1 minute prior to obtaining)] 58 L Pulse Rate [Standing (for 1 minute prior to obtaining)] 63 Respiratory Rate Blood Pressure Blood Pressure [Lying] 137/54 H Blood Pressure [Sitting (for 1 minute prior to obtaining)] 134/45 H Blood Pressure [Standing (for 1 minute prior to obtaining)] 107/53 L Blood Pressure Mean Blood Pressure Mean [Lying] 81 Blood Pressure Mean [Sitting (for 1 minute prior to obtaining)] 74 Blood Pressure Mean [Standing (for 1 minute prior to obtaining)] 71 Pulse Ox Oxygen Delivery Method MDM MDM MDM Narrative Medical decision making narrative: Patient is orthostatic positive. She was given IV fluids and even after 1 L she still had some orthostasis therefore a second liter was given and she felt significantly better. She does not have any other evidence of trauma from the fall she has no evidence of IN. She has no evidence of electrolyte abnormalities and BUN is slightly high which likely improved with fluids. She is much improved and wants to be discharged this seems quite reasonable. I zainab ked with daughter who gave me the history. At this time I thought about admission however patient does not meet criteria and she is not significantly improved with fluids therefore I believe she can be safely discharged. Interpretation: Telemetry. Sinus rhythm with a rate in the 60s without ectopy. Lab Data Labs: Laboratory Results - last 24 hr 04/08/23 04/08/23 13:05 13:05 WBC 6.9 RBC 3.66 L Hgb 11.5 L Hct 34.1 L MCV 93.2 MCH 31.4 MCHC 33.7 RDW Std Deviation 45.5 H RDW Coeff of Elke 13.2 Plt Count 258 MPV 8.3 Immature Gran % (Auto) 0.100 Neut % (Auto) 74.0 H Lymph % (Auto) 14.3 L [place] % (Auto) 10.2 H Eos % (Auto) 1.0 Baso % (Auto) 0.4 Absolute Neuts (auto) 5.1 Absolute Lymphs (auto) 0.98 Nucleated RBC % 0 Sodium 137 Potassium 3.4 L Chloride 103 Carbon Dioxide 26.0 Anion Gap 8 BUN 22 H Creatinine 1.04 H Estim Creat Clear Calc 34.94 Est GFR (MDRD) Af Amer 65 Est GFR (MDRD) Non-Af 53 L BUN/Creatinine Ratio 21.2 H Glucose 224 H Calcium 8.7 Troponin I High Sens 8 Radiography Diagnostic Testing: Clinical Impression(s) from Imaging Studies Chest X-Ray 04/08/23 12:56 IMPRESSION: No acute thoracic pathology. Electronically Signed: Gregg Tineo MD at 13:43 EDT , Chest x-ray interpreted by me as normal. EKG Initial EKG: Comments: Normal sinus rhythm with a rate in the 60s. Normal MS interval. QTc is 486. No ischemic changes. Interpreted by emergency doctor Discharge Plan Triage Chief Complaint: Chest Pain ED Provider: Juma Mendoza Dx/Rx/DC Orders Clinical Impression: Light-headedness, Orthostasis, Weakness Instructions: ED Hypotension, Orthostatic Prescriptions: No Action acetaminophen [Tylenol] 325 mg tablet 500 mg PO Q6H PRN (Reason: Pain) one touch ultra lancets miscellaneous nitroglycerin [Nitrostat] 0.4 mg tablet, sublingual 0.4 mg SUBLINGUAL Q5M PRN (Reason: chest pain) Qty: 25 3RF aspirin [Adult Aspirin Regimen] 81 mg tablet,delayed release (DR/EC) 81 mg PO DAILY multivitamin [Daily Multi-Vitamin] Tablet 1 tab PO DAILY (DME) Insulin syringes 0.5ml Qty: 200 3RF Rx Instructions: As directed magnesium oxide 400 mg magnesium capsule 400 mg PO DAILY metoprolol succinate 50 mg tablet extended release 24 hr 50 mg PO BID Qty: 180 3RF ranolazine 500 mg tablet extended release 12 hr 500 mg PO DAILY Label Comments: TAKE 1 TABLET BY MOUTH TWICE DAILY hydralazine 50 mg tablet 50 mg PO BID Label Comments: TAKE 1 TABLET BY MOUTH TWICE DAILY furosemide 20 mg tablet 40 mg PO DAILY albuterol sulfate 2.5 mg /3 mL (0.083 %) solution for nebulization 2.5 mg INHALATION Q8H PRN (Reason: shortness of breath or wheezing) Qty: 180 1RF meclizine 12.5 mg tablet 12.5 mg PO BID-TID PRN (Reason: dizziness) Qty: 60 2RF clopidogrel 75 mg tablet 75 mg PO DAILY Qty: 90 3RF (DME) OneTouch Ultra Blue Test Strip Strip See Rx Instructions .ROUTE .COMPLEX Qty: 100 5RF Dose Instruction: USE TO CHECK BLOOD SUGAR TWICE DAILY Rx Instructions: USE TO CHECK BLOOD SUGAR TWICE DAILY losartan 100 mg tablet 100 mg PO DAILY Qty: 90 2RF albuterol sulfate [ProAir HFA] 90 mcg/actuation HFA aerosol inhaler 1 puff INHALATION Q6H PRN (Reason: shortness of breath or wheezing) Qty: 8.5 0RF (DME) blood-glucose meter Misc See Rx Instructions .Route Qty: 1 0RF Rx Instructions: use twice daily to monitor blood glucose for Type 2 DM Lantus U-100 Insulin 100 unit/mL solution 17 unit subcut DAILY Qty: 10 6RF Rx Instructions: INJECT 17 UNITS SUBCUTANEOUSLY ONCE DAILY lovastatin 40 mg tablet 80 mg PO DAILY Qty: 180 3RF Primary Care Provider: Ora Jefferson Referrals: Ora Jefferson MD [Primary Care Provider] - 3-5 Days Disposition Disposition: Home, Self Care
[2023-04-08] MEDS: Ondansetron 4 MG/2 ML Vial IV (13:01)
[2023-04-08] MEDS: 0.9% Normal Saline 1,000 ML 500 ML IV (13:01)
[2023-04-08 13:15] LABS: Absolute Lymphocyte Count 0.98 X10^3/uL (0.83-4.51); Absolute Neutrophil Count 5.1 X10^3/uL (2.0-7.7); Basophil# 0.03 X10^3/uL; Basophil% 0.4 % (0-1); Eosinophil# 0.07 X10^3/uL; Hematocrit 34.1 % (37-47); Hemoglobin 11.5 g/dL (12.0-15.0); Lymphocyte # 0.98 X10^3/ul (0.83-4.51); Lymphocyte % 14.3 % (19-41); Mean Corp Hgb Conc 33.7 g/dL (32-36); Mean Corpuscular Hgb 31.4 pg (27.0-32.0); Mean Corpuscular Volume 93.2 fL (81-99); Mean Platelet Vol. 8.3 fl (6.2-12.0); Monocyte% 10.2 % (0-10); NRBC Flagged by Analyzer 0 % (0-5); Neutrophil # 5.06 X10^3/uL (2.7-7.7); Platelet Count 258 K/mm3 (150-450); RBC Distribution Width CV 13.2 % (11.6-14.6); RBC Distribution Width SD 45.5 fl (35.1-43.9); Red Blood Count 3.66 M/mm3 (4.2-5.4); White Blood Count 6.9 K/mm3 (4.4-11.0)
[2023-04-08 13:37] LABS: Anion Gap 8 (5-15); BUN 22 mg/dL (7-18); BUN/Creat Ratio 21.2 RATIO (10-20); Calcium,Total 8.7 mg/dL (8.5-10.1); Chloride 103 mmol/L (98-107); Creatinine, Serum 1.04 mg/dL (0.55-1.02); EST Glomerular Filtration Rate 53 mL/min (>60); Est Glom Filt Rate - Afr Amer 65 mL/min (>60); Estimated Creatinine Clearance 34.94 ml/min; Glucose 224 mg/dL (74-106); Potassium 3.4 mmol/L (3.5-5.1); Sodium Level 137 mmol/L (136-145); Troponin-I HS (w/2H Reflex) 8 pg/mL (3.0-54.0)
[2023-04-08] MEDS: Aspirin 81 MG TAB.CHEW 324 MG PO (14:03)
[2023-04-08 14:05] VITALS: BP 122/52; PULSE 63; RESP 14; O2SAT 99
[2023-04-08 14:10] VITALS: BP 107/53; BP 134/45; BP 137/54; PULSE 57; PULSE 58; PULSE 63
[2023-04-08] MEDS: 0.9% Normal Saline 1,000 ML 999 ML IV (14:18)
[2023-04-08 15:12] LABS: Reflex Troponin-HS? (from REC) Y
[2023-04-08 15:16] VITALS: BP 163/66; PULSE 61; RESP 16; O2SAT 98
== END 2023-04-08 15:18 | disposition home or self-care (01) ==
PROVIDERS: Emergency Provider Emergency Medicine; PCP Internal Medicine; Visit Provider Emergency Medicine
DX: R42 Dizziness and giddiness (principal); J44.9 Chronic obstructive pulmonary disease, unspecified; E11.40 Type 2 diabetes mellitus with diabetic neuropathy, unspecified; Z79.4 Long term (current) use of insulin; I25.10 Atherosclerotic heart disease of native coronary artery without angina pectoris; Z87.891 Personal history of nicotine dependence; R53.1 Weakness; I10 Essential (primary) hypertension; E78.5 Hyperlipidemia, unspecified; I95.1 Orthostatic hypotension; Z79.82 Long term (current) use of aspirin; Z79.899 Other long term (current) drug therapy; Z79.02 Long term (current) use of antithrombotics/antiplatelets; Z95.5 Presence of coronary angioplasty implant and graft
CPT/HCPCS: 71045; 80048; 84484; 85025; 93005; 96361; 96374; 99285; J7030; A4216; J2405

== ENCOUNTER → 2023-08-04 | Outpatient (CLI) | payer MEDICARE, SELFPAY ==
--- NOTE | 2023-08-04 11:00 | RAD_ITS ---
INDICATION: Shortness of breath EXAMINATION/TECHNIQUE: X-RAY - XR Chest 2 Views COMPARISON: Prior study dated: 04/08/2023 FINDINGS: LINES/DEVICES: None. LUNGS: No consolidation, edema or effusion. No pneumothorax. MEDIASTINUM AND CARDIOVASCULAR STRUCTURES: Borderline cardiac silhouette. Atherosclerotic calcifications of the thoracic aorta. BONES AND SOFT TISSUES: Mild dextroscoliosis of the thoracic spine and degenerative changes RAD/Chest PA and Lateral IMPRESSION: No radiographic evidence of acute cardiopulmonary disease. Electronically Signed: Christopher Ratliff MD at 11:55 EDT ,
[2023-08-04 12:20] LABS: Absolute Lymphocyte Count 1.04 X10^3/uL (0.83-4.51); Absolute Neutrophil Count 5.1 X10^3/uL (2.0-7.7); Basophil# 0.03 X10^3/uL; Basophil% 0.4 % (0-1); Eosinophil# 0.17 X10^3/uL; Eosinophils% 2.4 % (0-5); Hemoglobin 12.7 g/dL (12.0-15.0); Lymphocyte # 1.04 X10^3/ul (0.83-4.51); Lymphocyte % 14.8 % (19-41); Mean Corp Hgb Conc 32.6 g/dL (32-36); Mean Corpuscular Hgb 31.8 pg (27.0-32.0); Mean Corpuscular Volume 97.5 fL (81-99); Mean Platelet Vol. 8.8 fl (6.2-12.0); Monocyte# 0.64 X10^3/uL; Monocyte% 9.1 % (0-10); NRBC Flagged by Analyzer 0 % (0-5); Neutrophil # 5.13 X10^3/uL (2.7-7.7); Platelet Count 301 K/mm3 (150-450); RBC Distribution Width CV 12.7 % (11.6-14.6); RBC Distribution Width SD 45.7 fl (35.1-43.9)
[2023-08-04 13:21] LABS: AST(SGOT) 17 U/L (15-37); Alanine Aminotransfer ALT/SGPT 34 U/L (13-56); Albumin, Serum 3.8 g/dL (3.2-5.0); Alkaline Phosphatase 74 U/L (45-117); Anion Gap 4 (5-15); BUN 16 mg/dL (7-18); BUN/Creat Ratio 20.4 RATIO (10-20); Calcium,Total 9.1 mg/dL (8.5-10.1); Chloride 102 mmol/L (98-107); Creatinine, Serum 0.79 mg/dL (0.55-1.02); EST Glomerular Filtration Rate 74 mL/min (>60); Est Glom Filt Rate - Afr Amer 89 mL/min (>60); Globulin 3.7 g/dL (2.2-4.2); Glucose 157 mg/dL (74-106); Potassium 4.6 mmol/L (3.5-5.1); Protein, Total 7.5 g/dL (6.4-8.2); Sodium Level 135 mmol/L (136-145)
== END | disposition home or self-care (01) ==
PROVIDERS: PCP Internal Medicine; Referring Provider Internal Medicine; Visit Provider Internal Medicine
DX: J44.9 Chronic obstructive pulmonary disease, unspecified (principal); R06.00 Dyspnea, unspecified
CPT/HCPCS: 36415; 71046; 80053; 85025

== ENCOUNTER → 2024-01-29 | Outpatient (CLI) | payer MEDICARE, SELFPAY ==
[2024-01-29 12:07] LABS: Absolute Lymphocyte Count 1.05 X10^3/uL (0.83-4.51); Absolute Neutrophil Count 4.7 X10^3/uL (2.0-7.7); Basophil# 0.04 X10^3/uL; Basophil% 0.6 % (0-1); Eosinophil# 0.12 X10^3/uL; Eosinophils% 1.8 % (0-5); Hematocrit 39.5 % (37-47); Hemoglobin 12.8 g/dL (12.0-15.0); Lymphocyte # 1.05 X10^3/ul (0.83-4.51); Lymphocyte % 16.1 % (19-41); Mean Corp Hgb Conc 32.4 g/dL (32-36); Mean Corpuscular Hgb 31.8 pg (27.0-32.0); Mean Corpuscular Volume 98.3 fL (81-99); Monocyte# 0.56 X10^3/uL; Monocyte% 8.6 % (0-10); NRBC Flagged by Analyzer 0 % (0-5); Neutrophil # 4.74 X10^3/uL (2.7-7.7); Neutrophil % 72.6 % (47-70); Platelet Count 256 K/mm3 (150-450); RBC Distribution Width CV 12.7 % (11.6-14.6); RBC Distribution Width SD 45.8 fl (35.1-43.9); Red Blood Count 4.02 M/mm3 (4.2-5.4); White Blood Count 6.5 K/mm3 (4.4-11.0)
[2024-01-29 12:48] LABS: ALB/GLOB Ratio 1.1 RATIO (0.9-2.4); AST(SGOT) 21 U/L (15-37); Alanine Aminotransfer ALT/SGPT 25 U/L (13-56); Albumin, Serum 3.7 g/dL (3.2-5.0); Alkaline Phosphatase 61 U/L (45-117); Anion Gap 5 (5-15); BUN 16 mg/dL (7-18); BUN/Creat Ratio 17.2 RATIO (10-20); Calcium,Total 9.4 mg/dL (8.5-10.1); Chloride 102 mmol/L (98-107); Creatinine, Serum 0.93 mg/dL (0.55-1.02); EST Glomerular Filtration Rate 61 mL/min (>60); Est Glom Filt Rate - Afr Amer 73 mL/min (>60); Globulin 3.5 g/dL (2.2-4.2); Glucose 208 mg/dL (74-106); Potassium 4.3 mmol/L (3.5-5.1); Protein, Total 7.2 g/dL (6.4-8.2); Sodium Level 139 mmol/L (136-145)
[2024-01-29 13:05] LABS: Vitamin D,25 Hydroxy 29.6 ng/mL
== END | disposition home or self-care (01) ==
LOC: BIMLAB 09:43
PROVIDERS: PCP Internal Medicine; Visit Provider Internal Medicine
DX: E78.5 Hyperlipidemia, unspecified (principal); E11.9 Type 2 diabetes mellitus without complications; M85.80 Other specified disorders of bone density and structure, unspecified site
CPT/HCPCS: 36415; 80053; 82306; 85025

== ENCOUNTER → 2024-02-07 | Outpatient (CLI) | payer MEDICARE, SELFPAY ==
--- NOTE | 2024-02-07 11:10 | RAD_ITS ---
STUDY: X-RAY CHEST REASON FOR EXAM: Female, 88 years old. Cough TECHNIQUE: PA and lateral views of the chest. COMPARISON: Comparison is made with prior study dated August 04, 2023. FINDINGS: Hyperinflation. Progressive infiltration in the right middle lobe and lingular segment of the left upper lobe superimposed on scarring. Follow-up recommended. There is no demonstrated pleural abnormality. Normal size heart. Normal mediastinum and ronda. Normal visualized pulmonary arteries. There is atherosclerotic calcification of the aortic arch with tortuosity. There are diffuse degenerative changes of the visualized thoracic spine. Normal visualized ribs, clavicles, and shoulders. There is no demonstrated abnormality of the visualized soft tissue structures of the upper abdomen. RAD/Chest PA and Lateral IMPRESSION: Progressive bibasilar infiltrates superimposed on basilar scarring worse at the left lung base. Electronically Signed: Andrey Spangler MD at 11:08 EDT ,
[2024-02-07 12:12] LABS: Absolute Neutrophil Count 5.9 X10^3/uL (2.0-7.7); Basophil# 0.06 X10^3/uL; Basophil% 0.8 % (0-1); Eosinophils% 1.3 % (0-5); Hematocrit 39.6 % (37-47); Hemoglobin 12.6 g/dL (12.0-15.0); Lymphocyte % 13.1 % (19-41); Mean Corp Hgb Conc 31.8 g/dL (32-36); Mean Corpuscular Volume 97.3 fL (81-99); Mean Platelet Vol. 8.9 fl (6.2-12.0); Monocyte# 0.58 X10^3/uL; Monocyte% 7.6 % (0-10); NRBC Flagged by Analyzer 0 % (0-5); Neutrophil # 5.86 X10^3/uL (2.7-7.7); Neutrophil % 76.9 % (47-70); Platelet Count 297 K/mm3 (150-450); RBC Distribution Width CV 12.7 % (11.6-14.6); Red Blood Count 4.07 M/mm3 (4.2-5.4); White Blood Count 7.6 K/mm3 (4.4-11.0)
== END | disposition home or self-care (01) ==
PROVIDERS: PCP Internal Medicine; Referring Provider Physician Assistant; Visit Provider Physician Assistant
DX: R05.3 Chronic cough (principal)
CPT/HCPCS: 36415; 71046; 85025

== ENCOUNTER → 2024-02-21 | Outpatient (CLI) | payer MEDICARE, SELFPAY ==
--- NOTE | 2024-02-21 07:44 | CT_ITS ---
STUDY: CT CHEST WITHOUT CONTRAST REASON FOR EXAM: Female, 88 years old. Cough RADIATION DOSAGE (If Supplied By Facility): CTDIvol = ( 12.48 ) mGy, DLP = ( 399.15 ) mGycm TECHNIQUE: Transaxial imaging was performed without the administration of intravenous contrast material. Multiplanar coronal and sagittal images were reformatted. Individualized dose optimization techniques were used for this CT. COMPARISON: Comparison is made with prior chest radiograph dated February 07, 2024. FINDINGS: CHEST Mild degree of emphysematous changes more prominent in the right upper lobe with subpleural blebs. Scarring and bronchiectasis in the anterior medial aspect of the right middle lobe as well as the lingular segment of the left upper lobe. Scarring in the lower lobes as well. There is no demonstrated pleural abnormality. There are calcifications of the coronary arteries. Normal mediastinum. Normal hilar regions. Normal unenhanced pulmonary arteries. There is atherosclerotic calcification of the aortic arch with tortuosity and elongation of the aortic arch and descending thoracic aorta. There are multi-level degenerative changes of the thoracic spine. Calcified splenic granulomas. CT/Chest without Contrast IMPRESSION: Scarring and bronchiectasis in the right middle lobe as well as related to some of the left upper lobe. Linear scarring at the lung bases. Bullous changes in the right upper lobe. Electronically Signed: Andrey Spangler MD at 13:23 EDT ,
== END | disposition home or self-care (01) ==
LOC: CT 07:39
PROVIDERS: PCP Internal Medicine; Referring Provider Physician Assistant; Visit Provider Physician Assistant
DX: R04.2 Hemoptysis (principal)
CPT/HCPCS: 71250

== ENCOUNTER → 2024-02-28 | Outpatient (CLI) | payer MEDICARE, SELFPAY ==
--- NOTE | 2024-02-28 10:22 | BD_ITS ---
STUDY: DUAL ENERGY X-RAY ABSORPTIOMETRY / DXA REASON FOR EXAM: Female, 88 years old. Post menopausal TECHNIQUE: Bone Mineral Density (BMD) measurements of lumbar spine and bilateral hips were obtained. COMPARISON: Comparison is made with prior study dated July 29, 2020. FINDINGS: Lumbar Spine (L1-L4): g/cm2 (0.942) / T-score (-0.6) / Z-score (2.1) Findings are suggestive of normal bone density with a low fracture risk. Left Femur Total: g/cm2 (0.763) / T-score (-1.5) / Z-score (0.9) Left Femoral Neck: g/cm2 (0.551) / T-score (-2.7) / Z-score (-0.2) Right Femur Total: g/cm2 (0.799) / T-score (-1.2) / Z-score (1.2) Right Femoral Neck: g/cm2 (0.581) / T-score (-2.4) / Z-score (0.1) The T-Scores on the most recent prior examination were: Lumbar Spine (L1-L4): There has been worsening of bone density since the previous examination. Left Femur Total: which represents a worsening of 8.7%. Right Femur Total: which represents a worsening of 2.6%. BD/Dexa Bone Density Study IMPRESSION: The patient is considered osteoporotic as outlined below according to World Jamin Organization (WHO) criteria with a high fracture risk. There has been worsening of bone density since the previous examination. Reference Information: The T-score is the number of standard deviations above or below the standard which is normal for young adults at their peak bone mineral density. The World Health Organization (WHO) interprets the T-scores as follows: Above -1 Normal bone density Between -1 and -2.5 Osteopenia Equal to / or below -2.5 Osteoporosis As a practical clinical guideline, osteopenia may be graded as follows: Mild -1 through -1.5 Moderate -1.6 through -2.0 Severe -2.1 through -2.4 The Z-score is the number of standard deviations above or below age-matched controls. A Z-score of less than -1.5 would be considered abnormal. References: 1. NIH Osteoporosis and Related Bone Diseases www osteo.org 2. International Society for Clinical Densitometry www iscd.org 3. National Osteoporosis Foundation www nof.org Electronically Signed: Andrey Spangler MD at 13:24 EDT ,
== END | disposition home or self-care (01) ==
LOC: OPBD 10:22
PROVIDERS: PCP Internal Medicine; Referring Provider Internal Medicine; Visit Provider Internal Medicine
DX: Z78.0 Asymptomatic menopausal state (principal)
CPT/HCPCS: 77080

== ENCOUNTER → 2024-04-10 | Outpatient (CLI) | payer MEDICARE, SELFPAY ==
--- NOTE | 2024-04-10 13:39 | ART_ITS ---
Reason For Study: PVD Procedure A bilateral lower extremity continuous wave Doppler with analog waveform analysis,segmental pressures,and ankle brachial indexes without exercise. Left Segmental Pressures Left brachial= 115mmHg. Left posterior tibial artery = 127mmHg. Left dorsalis pedis artery = 138mmHg. Left digit = 80 mmHg. Right Segmental Pressures Right brachial= 119mmHg. Right posterior tibial artery = 150mmHg. Right dorsalis pedis artery = 141mmHg. Right digit = 80 mmHg. Indices The right ankle brachial index by the posterior tibial artery is 1.26. The right ankle brachial index by the dorsalis pedis is 1.18. The right digital-brachial index is 0.67. The left ankle brachial index by the posterior tibial artery is 1.07. The left ankle brachial index by the dorsalis pedis is 1.16. The left digital-brachial index is 0.67. VL/Lower Ext Art Exam w/o Exercis Interpretation Summary Right SAUL 1.26, normal. Doppler/PVR waveforms of the right leg normal at rest. TBI diminished, pedal/digit disease vs spasm Left SAUL 1.16, normal. Doppler/PVR waveforms of the left leg normal at rest. TB I diminished, pedal/digit disease vs spasm Ordering Physician: Raghav Kuhn Referring Physician: Ora Jefferson Performed By: Herlinda Gutierrez RDCS/RVT
== END | disposition home or self-care (01) ==
LOC: CVS 13:31
PROVIDERS: PCP Internal Medicine; Referring Provider Podiatrist; Visit Provider Podiatrist
DX: I73.89 Other specified peripheral vascular diseases (principal)
CPT/HCPCS: 93923

== ENCOUNTER 2024-06-10 15:29 | Emergency (ER) | payer MEDICARE, SELFPAY ==
[2024-06-10 15:29] VITALS: BP 138/68; PULSE 63; RESP 16; TEMP 36.6; O2SAT 98; BMI 25.8
--- NOTE | 2024-06-10 15:44 | EKG12_ITS ---
Test Reason : CHEST TIGHTNESS Blood Pressure : / mmHG Vent. Rate : 066 BPM Atrial Rate : 066 BPM P-R Int : 206 ms QRS Dur : 094 ms QT Int : 442 ms P-R-T Axes : 049 -09 072 degrees QTc Int : 463 ms Normal sinus rhythm Left ventricular hypertrophy with repolarization abnormality ( R in aVL , [place] product ) Abnormal ECG Confirmed by MINI DALEY, ORLIN ([id number]), medical transcription editor ZAY SLOAN ([id number]) on 06/14/2024 10:09:49 AM Referred By: ANIBAL/GERBER Confirmed By:ELAINE MORSE MD
--- NOTE | 2024-06-10 15:45 | EDS_ITS ---
HPI History of Present Illness Chief Complaint: Nausea/Vomiting/Diarrhea Detail of Chief Complaint: Nausea and diarrhea yesterday, today chest pressure Informant: patient and family Onset/Context/Timing Onset: Today (Chest pressure while watching the Olympics.) and Yesterday (Nausea with 5 loose watery stools) Context: Sudden Onset Timing: Continuous (With respect to the chest pressure) and Intermittent (With respect to the nausea and diarrhea) Quality: Pressure mid chest Location: Mid chest Current Severity: Mild Maximum Severity: Moderate Worsened by: Nothing Relieved by: Nothing Associated Symptoms Associated Symptoms: None and no radiation Narrative Narrative: Patient is a 88-year-old woman with history of coronary disease and 6 stents on Plavix who also has history of hypertension, type 2 diabetes, hyperlipidemia, sleep apnea, COPD who presents because she does not feel well. Yesterday she had 5 loose stools in the morning without blood, mucus and was not black or maroon in color. She also had nausea without vomiting. She had vague generalized abdominal discomfort. There is no radiation. Today while watching the [employer] she developed midsternal chest pressure without radiation or associated symptoms. She reports that the pressure is still present. Nothing makes this pain better or worse. She does have stable two-pillow orthopnea. She denies leg swelling or pain. She is on a thiazide and loop diuretic. 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 There is a history of GERD. This pain is not like her GERD discomfort. Per old record she does have history of dyspnea with activity. Prior similar symptoms: Yes Recent Illness/Hospitalization: No PFSH PFS Medical History Osteopenia Left carotid bruit Easy fatigability Hyponatremia Hyperkalemia Neuropathy Left shoulder pain Flu vaccine need GERD (gastroesophageal reflux disease) Sinusitis Coronary artery disease Leg cramps Dog scratch Sleep apnea Type 2 diabetes mellitus Vertigo Chronic bronchitis COPD (chronic obstructive pulmonary disease) Obesity Hyperlipidemia Herniated disc Osteoporosis Osteoarthritis GERD (gastroesophageal reflux disease) Essential (primary) hypertension Atherosclerosis of coronary artery of [place] heart without angina pectoris Change in facial mole Pigmented skin lesion suspicious for malignant neoplasm Chronic sinusitis Emphysema lung Cataracts, bilateral Rupture herniated disc Back pain Arthritis Home Medications ?Medication ?Instructions ?Recorded ?Last Taken ?Type acetaminophen 325 mg tablet 500 mg PO Q6H PRN Pain 11/16/17 Unknown History (Tylenol) one touch ultra lancets miscellaneous 11/16/17 Unknown History nitroglycerin 0.4 mg sublingual 0.4 mg sublingual Q5M PRN chest 04/25/18 Unknown Rx tablet (Nitrostat) pain #25 tabs aspirin 81 mg tablet,delayed 81 mg PO DAILY 03/01/19 Unknown History release (Adult Aspirin Regimen) albuterol sulfate 2.5 mg/3 mL 2.5 mg (3 mL) inhalation Q8H PRN 09/13/19 Unknown Rx (0.083 %) solution for nebulization shortness of breath or wheezing #180 mL Insulin syringes #200 ea 01/14/20 Unknown Rx multivitamin (Daily Multi-Vitamin 1 tab PO DAILY 01/14/20 Unknown History tablet) meclizine 12.5 mg tablet 12.5 mg PO BID-TID PRN dizziness 02/18/21 Unknown Rx #60 tabs magnesium oxide 400 mg PO DAILY 04/26/21 Unknown History clopidogrel 75 mg tablet 75 mg PO DAILY #90 tabs 11/22/21 Unknown Rx metoprolol succinate 50 mg 50 mg PO BID #180 tabs 01/14/22 Unknown Rx tablet,extended release 24 hr blood sugar diagnostic #100 strips 02/17/22 Unknown Rx albuterol sulfate 90 mcg/actuation 1 puff inhalation Q6H PRN 09/23/22 Unknown Rx aerosol inhaler (ProAir HFA) shortness of breath or wheezing #8.5 grams blood-glucose meter #1 ea 11/24/22 Unknown Rx blood sugar diagnostic (OneTouch #100 ea 04/27/23 Unknown Rx Ultra Test strips) budesonide-formoterol HFA 160 2 puff inhalation BID #10.2 grams 08/04/23 Unknown Rx mcg-4.5 mcg/actuation aerosol inhaler (Symbicort) furosemide 20 mg tablet 20 mg PO DAILY 08/04/23 Unknown History hydralazine 50 mg tablet 25 mg PO BID 08/04/23 Unknown History losartan 100 mg tablet 25 mg PO BID 08/04/23 Unknown History ranolazine 500 mg tablet,extended 500 mg PO BID 08/04/23 Unknown History release,12 hr lovastatin 40 mg tablet 80 mg (2 x 40 mg) PO DAILY #180 01/01/24 Unknown Rx tabs Handicap Placard #1 ea 01/29/24 Unknown Rx insulin glargine 100 unit/mL See Rx Instructions .Route 01/29/24 Unknown Rx subcutaneous solution (Lantus .COMPLEX #10 mL U-100 Insulin) inhalational spacing device #1 ea 02/07/24 Unknown Rx (BreatheRite MDI Spacer) fluticasone fur. 200 mcg-umeclid 1 inh inhalation Q24H #28 ea 04/18/24 Unknown Rx 62.5 mcg-vilant 25 mcg inhalat.powder (Trelegy Ellipta) Allergy/AdvReac Type Severity Reaction Status Date / Time cephalexin AdvReac Mild redness Verified 06/10/24 15:30 isosorbide AdvReac Unknown Passed out Verified 06/10/24 15:30 codeine AdvReac Nausea/Vom/ Verified 06/10/24 15:30 Diarrhea Family History Sister Cancer passed of lung CA at 45 Grandmother Diabetes Heart disease CVA (cerebral vascular accident) Mother Diabetes Heart disease Brother Heart disease Myocardial infarction Daughter Arthritis Son Heart disease Surgical History History of left heart catheterization (11/01/21) History of coronary artery stent placement (11/01/21) Status post trigger finger release History of History of carpal tunnel release History of carpal tunnel surgery history of cataracts removal History of section Social History Smoking Status: Former smoker how long ago did patient quit smokin alcohol intake: never substance use type: does not use what type of physical activity do you participate in: walking frequency: daily ROS ROS ED Constitutional Constitutional ED: Denies chills, fever(s), subjective, sweats or weight loss Eyes Eyes: Denies blurry vision or change in vision ENT ENT ED: Denies ear pain, rhinorrhea or sore throat Cardiovascular Cardiovascular: Reports chest pain and orthopnea; Denies palpitations, paroxysmal nocturnal dyspnea or racing heartbeat Respiratory/Chest Respiratory/Chest: Reports dyspnea on exertion, orthopnea and other Details: The dyspnea on exertion and orthopnea are chronic and unchanged. ; Denies cough, dyspnea or paroxysmal nocturnal dyspnea Gastrointestinal Gastrointestinal: Reports diarrhea and nausea; Denies abdominal pain, constipation, melena or vomiting Genitourinary Genitourinary ED: Denies dysuria, hematuria or urinary frequency Musculoskeletal Musculoskeletal: Denies arthralgias, back pain, myalgias or neck pain Integumentary Denies rash Neurologic Neurologic: Denies paresthesias or weakness Hematologic/Lymphatic Hematologic/Lymphatic: Reports systems reviewed and no addt'l complaints, except as documented EXAM Physical Exam Const Vital Signs: 06/10/24 15:29 06/10/24 17:00 06/10/24 18:00 Temperature 97.8 F 97.8 F 97.6 F L Temperature Source Temporal Temporal Temporal Pulse Rate 63 55 L 57 L Respiratory Rate 16 18 18 Blood Pressure 138/68 H 158/55 H 193/62 H Blood Pressure Mean 91 89 105 Pulse Ox 98 98 96 Oxygen Delivery Method Room Air Room Air Room Air Positive well nourished and well developed General Appearance ED: well developed and NAD; Negative for cyanotic, diaphoretic or pallor HEENT Reports dry mucous membranes HEENT Narrative: Head is atraumatic and normocephalic. Ears normal. Nares patent. Posterior pharynx is normal. Mouth ED: Yes dry mucous membranes Mouth: dry mucous membranes Eyes PERRL and EOMs intact bilaterally General Eye ED: Negative for pale conjunctiva or scleral icterus Neck no lymphadenopathy, supple and no JVD Chest Wall inspection of chest normal and palpation of chest normal Resp normal respiratory effort and clear to auscultation bilaterally Cardio regular rate, regular rhythm, S1 normal heart sound, S2 normal heart sound and no murmurs GI normal to inspection, nondistended, normoactive bowel sounds, non-tender, non- distended and no masses; Negative for hepatosplenomegaly Palpation: soft Back/Spine no CVA tenderness Extremity normal to inspection General Extremety ED: Negative for edema or tenderness General Extremity: Negative for edema Neuro oriented x3, CN's II-XII intact bilaterally and no sensory deficits noted Sensorium / Orientation: alert Motor Exam: strength 5/5 throughout Psych mental status grossly normal Skin no rashes or lesions noted, no wounds and skin turgor normal General Skin Exam: elasticity normal; Negative for jaundice or pallor MDM MDM MDM Narrative Medical decision making narrative: Patient's nausea and diarrhea may be due to viral illness, eating something that may have been tainted. With respect to the chest pressure need to rule out cardiac versus noncardiac. Noncardiac would include esophageal spasm, reflux, peptic ulcer disease, biliary disease and pulmonary disease. Workup included EKG, chest x-ray and appropriate blood work including 2-hour troponin. Electrolytes were obtained to assess for hypokalemia and renal function in light of her multiple medical problems. CBC to rule out anemia since she appears pale even though her conjunctive is pink. Initially patient not get fluids because her tongue was moist and she had rales in the factors on diuretic concerned that she may be fluid overloaded. Since this was not the case she received a 500 cc bolus of normal saline. Lab Data Attestation: I reviewed the patient's lab results. Lab results narrative: CBC is unremarkable. There is a slight increase in neutrophils. White count is normal. This is a nonspecific abnormality. Both high-sensitivity troponins at time 0 and 2 hours were 6. Delta 0. Both are less than 7 with a negative predictive value of 100%. Therefore will discharge to home. Labs: Laboratory Results - last 24 hr 06/10/24 06/10/24 15:50 17:54 WBC 7.2 RBC 3.80 L Hgb 12.0 Hct 36.7 L MCV 96.6 MCH 31.6 MCHC 32.7 RDW Std Deviation 46.6 H RDW Coeff of Elke 13.1 Plt Count 259 MPV 8.5 Immature Gran % (Auto) 0.400 Neut % (Auto) 73.4 H Lymph % (Auto) 15.2 L [place] % (Auto) 9.4 Eos % (Auto) 1.2 Baso % (Auto) 0.4 Absolute Neuts (auto) 5.3 Absolute Lymphs (auto) 1.10 Nucleated RBC % 0 Sodium 134 L Potassium 4.1 Chloride 101 Carbon Dioxide 29.0 Anion Gap 4 L BUN 23 H Creatinine 1.26 H Estim Creat Clear Calc 30.98 Est GFR (MDRD) Af Amer 52 L Est GFR (MDRD) Non-Af 43 L BUN/Creatinine Ratio 18.3 Glucose 192 H Calcium 8.8 Troponin I High Sens 6 6 Radiography Chest X-Ray - ED: 2 View and Read by ED Physician (Interpreted independently by me at 1606 as negative for any acute process. There is borderline cardiomegaly. Minimal chronic lung parenchymal changes. There is no infiltrate or effusion noted. Mediastinum is normal. Osseous structures are unremarkable.) Diagnostic Testing: Clinical Impression(s) from Imaging Studies Chest X-Ray 06/10/24 15:55 IMPRESSION: Mild interstitial prominence. Electronically Signed: Eh Dunbar DO at 16:15 EDT Reading Location ID and State: [facility] / [place] Tel [phone], Service support , EKG Initial EKG: Attestation: I personally reviewed and interpreted this EKG as follows: Interpretation: Sinus Rhythm (Rate is 66 bpm. [place] interval is 206 ms. Duration is 94 ms. QT is 442 ms. [place] is normal. There is evidence of left ventricular hypertrophy with repolarization changes. My opinion the EKG is unremarkable for any ischemic changes.) Treatment and Re-Evaluation :: Patient and family member told the results. Plan is to discharge to home. Discharge Plan Triage Chief Complaint: Nausea/Vomiting/Diarrhea ED Provider: John Lai Dx/Rx/DC Orders Clinical Impression: Diarrhea, Essential (primary) hypertension, Hyperlipidemia, History of coronary artery stent placement, Type 2 diabetes mellitus, Sleep apnea, Acute prerenal azotemia, Chest pressure, History of coronary artery disease Instructions: ED Chest Pain, Uncertain Cause, ED Dehydration (Adult) Prescriptions: No Action acetaminophen [Tylenol] 325 mg tablet 500 mg PO Q6H PRN (Reason: Pain) one touch ultra lancets miscellaneous nitroglycerin [Nitrostat] 0.4 mg tablet, sublingual 0.4 mg SUBLINGUAL Q5M PRN (Reason: chest pain) Qty: 25 3RF aspirin [Adult Aspirin Regimen] 81 mg tablet,delayed release (DR/EC) 81 mg PO DAILY multivitamin [Daily Multi-Vitamin] Tablet 1 tab PO DAILY (DME) Insulin syringes 0.5ml Qty: 200 3RF Rx Instructions: As directed magnesium oxide 400 mg magnesium capsule 400 mg PO DAILY metoprolol succinate 50 mg tablet extended release 24 hr 50 mg PO BID Qty: 180 3RF ranolazine 500 mg tablet extended release 12 hr 500 mg PO BID Patient Comments: TAKE 1 TABLET IN MORNING; 2 TABLETS IN EVENING hydralazine 50 mg tablet 25 mg PO BID Patient Comments: TAKE 1 TABLET BY MOUTH TWICE DAILY furosemide 20 mg tablet 20 mg PO DAILY losartan 100 mg tablet 25 mg PO BID Lantus U-100 Insulin 100 unit/mL solution See Rx Instructions .ROUTE .COMPLEX Qty: 10 3RF Dose Instruction: INJECT 17 UNITS SUBCUTANEOUSLY ONCE DAILY. DISCARD VIAL AFTER 28 DAYS. Rx Instructions: INJECT 20 UNITS SUBCUTANEOUSLY ONCE DAILY. DISCARD VIAL AFTER 28 DAYS. (DME) Handicap Placard See Rx Instructions .ROUTE .MEDSUPPLY Qty: 1 0RF Rx Instructions: As directed, length of time 3 years (DME) BreatheRite MDI Spacer Spacer See Rx Instructions .Route Qty: 1 0RF Rx Instructions: As directed albuterol sulfate 2.5 mg /3 mL (0.083 %) solution for nebulization 2.5 mg INHALATION Q8H PRN (Reason: shortness of breath or wheezing) Qty: 180 1RF meclizine 12.5 mg tablet 12.5 mg PO BID-TID PRN (Reason: dizziness) Qty: 60 2RF clopidogrel 75 mg tablet 75 mg PO DAILY Qty: 90 3RF (DME) OneTouch Ultra Blue Test Strip Strip See Rx Instructions .ROUTE .COMPLEX Qty: 100 5RF Dose Instruction: USE TO CHECK BLOOD SUGAR TWICE DAILY Rx Instructions: USE TO CHECK BLOOD SUGAR TWICE DAILY albuterol sulfate [ProAir HFA] 90 mcg/actuation HFA aerosol inhaler 1 puff INHALATION Q6H PRN (Reason: shortness of breath or wheezing) Qty: 8.5 0RF (DME) blood-glucose meter Misc See Rx Instructions .Route Qty: 1 0RF Rx Instructions: use twice daily to monitor blood glucose for Type 2 DM (DME) OneTouch Ultra Test Strip See Rx Instructions .Route Qty: 100 3RF Rx Instructions: use three times daily to monitor blood glucose for type 2 DM budesonide-formoterol [Symbicort] 160-4.5 mcg/actuation HFA aerosol inhaler 2 puff inhalation BID Qty: 10.2 3RF lovastatin 40 mg tablet 80 mg PO DAILY Qty: 180 3RF Trelegy Ellipta 200-62.5-25 mcg blister with device 1 inh inhalation Q24H Qty: 28 1RF Primary Care Provider: Ora Jefferson Referrals: Ora Jefferson MD [Primary Care Provider] - 3-5 Days Activity Restrictions/Additional Instructions: Follow-up with your doctor to have repeat blood work to assess your kidney function. Print Language: Indonesian Disposition Disposition: Home, Self Care
--- NOTE | 2024-06-10 15:55 | RAD_ITS ---
INDICATION: Shortness of breath and bilateral rales, chest lizeth EXAMINATION/TECHNIQUE: X-RAY - XR Chest 2 Views COMPARISON: February 07, 2024 FINDINGS: LINES/DEVICES: None. LUNGS: No consolidation, edema or effusion. Mild interstitial prominence. No pneumothorax. MEDIASTINUM AND CARDIOVASCULAR STRUCTURES: Cardiac silhouette not enlarged. Calcified aorta. Central airways and mediastinal contour are unremarkable. BONES AND SOFT TISSUES: Scoliosis. RAD/Chest PA and Lateral IMPRESSION: Mild interstitial prominence. Electronically Signed: Eh Dunbar DO at 16:15 EDT ,
[2024-06-10 16:04] LABS: Absolute Neutrophil Count 5.3 X10^3/uL (2.0-7.7); Basophil# 0.03 X10^3/uL; Basophil% 0.4 % (0-1); Eosinophil# 0.09 X10^3/uL; Eosinophils% 1.2 % (0-5); Hematocrit 36.7 % (37-47); Lymphocyte % 15.2 % (19-41); Mean Corp Hgb Conc 32.7 g/dL (32-36); Mean Corpuscular Hgb 31.6 pg (27.0-32.0); Mean Corpuscular Volume 96.6 fL (81-99); Mean Platelet Vol. 8.5 fl (6.2-12.0); Monocyte# 0.68 X10^3/uL; Monocyte% 9.4 % (0-10); NRBC Flagged by Analyzer 0 % (0-5); Neutrophil % 73.4 % (47-70); Platelet Count 259 K/mm3 (150-450); RBC Distribution Width CV 13.1 % (11.6-14.6); RBC Distribution Width SD 46.6 fl (35.1-43.9); White Blood Count 7.2 K/mm3 (4.4-11.0)
[2024-06-10 16:31] LABS: Anion Gap 4 (5-15); BUN 23 mg/dL (7-18); BUN/Creat Ratio 18.3 RATIO (10-20); Calcium,Total 8.8 mg/dL (8.5-10.1); Chloride 101 mmol/L (98-107); Creatinine, Serum 1.26 mg/dL (0.55-1.02); EST Glomerular Filtration Rate 43 mL/min (>60); Est Glom Filt Rate - Afr Amer 52 mL/min (>60); Estimated Creatinine Clearance 30.98 ml/min; Glucose 192 mg/dL (74-106); Potassium 4.1 mmol/L (3.5-5.1); Sodium Level 134 mmol/L (136-145); Troponin-I HS (w/2H Reflex) 6 pg/mL (3.0-54.0)
[2024-06-10 17:00] VITALS: BP 158/55; PULSE 55; RESP 18; TEMP 36.6; O2SAT 98
[2024-06-10] MEDS: 0.9% Normal Saline (500mL Bag) 500 ML 1000 ML IV (17:38)
[2024-06-10 18:00] VITALS: BP 193/62; PULSE 57; RESP 18; TEMP 36.4; O2SAT 96
[2024-06-10 18:01] LABS: Reflex Troponin-HS? (from REC) Y
[2024-06-10 18:22] LABS: Troponin-I HS 6 pg/mL (3.0-54.0)
[2024-06-10 18:50] VITALS: BP 158/55; PULSE 56; RESP 17; TEMP 36.6; O2SAT 96
== END 2024-06-10 18:52 | disposition home or self-care (01) ==
PROVIDERS: Emergency Provider Emergency Medicine; PCP Internal Medicine; Visit Provider Emergency Medicine
DX: R19.7 Diarrhea, unspecified (principal); J44.9 Chronic obstructive pulmonary disease, unspecified; E11.40 Type 2 diabetes mellitus with diabetic neuropathy, unspecified; K21.9 Gastro-esophageal reflux disease without esophagitis; I25.10 Atherosclerotic heart disease of native coronary artery without angina pectoris; R10.84 Generalized abdominal pain; Z95.5 Presence of coronary angioplasty implant and graft; E78.5 Hyperlipidemia, unspecified; I10 Essential (primary) hypertension; Z87.891 Personal history of nicotine dependence; G47.30 Sleep apnea, unspecified; R79.89 Other specified abnormal findings of blood chemistry; R07.89 Other chest pain; Z79.82 Long term (current) use of aspirin
CPT/HCPCS: 71046; 80048; 84484; 85025; 93005; 99283; J7040

== ENCOUNTER → 2024-06-19 | Outpatient (CLI) | payer MEDICARE, SELFPAY ==
[2024-06-19 15:55] LABS: Anion Gap 8 (5-15); BUN 17 mg/dL (7-18); BUN/Creat Ratio 21.6 RATIO (10-20); Chloride 100 mmol/L (98-107); Cholesterol 163 mg/dL (200); Creatinine, Serum 0.79 mg/dL (0.55-1.02); EST Glomerular Filtration Rate 73 mL/min (>60); Est Glom Filt Rate - Afr Amer 89 mL/min (>60); Glucose 132 mg/dL (74-106); High Density Lipoprotein 54 mg/dL; Potassium 4.1 mmol/L (3.5-5.1); Sodium Level 136 mmol/L (136-145); Triglycerides 256 mg/dL; Very Low Density Lipoprotein 51 mg/dL (5-40)
== END | disposition home or self-care (01) ==
LOC: BIMLAB 11:17
PROVIDERS: PCP Internal Medicine; Referring Provider Internal Medicine; Visit Provider Internal Medicine
DX: I10 Essential (primary) hypertension (principal); E78.5 Hyperlipidemia, unspecified
CPT/HCPCS: 36415; 80048; 80061

== ENCOUNTER → 2024-06-27 | Outpatient (CLI) | payer MEDICARE, SELFPAY ==
--- NOTE | 2024-06-27 15:05 | RAD_ITS ---
STUDY: X-RAY - LUMBAR SPINE REASON FOR EXAM: Female, 88 years old. Pain. Evaluate for osteoarthrosis. TECHNIQUE: 3 view(s) of the lumbar spine were obtained. COMPARISON: None FINDINGS: Marked osteopenia. Normal lumbar lordosis. Marked thoracolumbar scoliosis. 2 mm of anterolisthesis of L4 on L5 and 2 cm of anterolisthesis of L5 on S1, likely secondary to bilateral spondylolysis. Diffuse moderate to marked lower thoracic and lumbar sacral facet sclerosis. Endplate concavities compatible with osteoporosis. Diffuse intervertebral disc space narrowing with osteophytes. Marked vascular calcification. 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 Electronically Signed: Tani Walker MD at 9:59 EDT ,
--- NOTE | 2024-06-27 15:05 | RAD_ITS ---
STUDY: X-RAY - SACRUM/COCCYX REASON FOR EXAM: Female, 88 years old. Degenerative disc disease. TECHNIQUE: 3 views of the sacrum and coccyx were obtained. COMPARISON: None. FINDINGS: Normal bilateral sacroiliac joints. Normal visualized sacral ala and fused sacral bodies. Normal sacrococcygeal junction with a normal angulation. Normal coccygeal segments. There is anterolisthesis of L5 on S1. There is degenerative disc disease of the visualized lumbosacral spine. The presacral soft tissue structures are unremarkable. There are calcified phleboliths in the pelvis. There atherosclerotic calcifications of the pelvic and femoral arteries bilaterally. There is no demonstrated fracture or destructive osseous process. RAD/Sacrum-Coccyx min 2 Views IMPRESSION: Anterolisthesis of L5 on S1. Degenerative disc disease of the visualized lumbosacral spine. Intact sacrum and coccyx. Electronically Signed: Caleb Pedro MD at 16:17 EDT ,
== END | disposition home or self-care (01) ==
LOC: RAD 14:58
PROVIDERS: PCP Internal Medicine; Referring Provider Anesthesiology Pain Medicine; Visit Provider Anesthesiology Pain Medicine
DX: M51.37 Other intervertebral disc degeneration, lumbosacral region (principal)
CPT/HCPCS: 72100; 72220

== ENCOUNTER 2024-09-21 15:00 | Emergency (ER) | payer MEDICARE, SELFPAY ==
[2024-09-21 15:02] VITALS: BP 117/45; PULSE 61; RESP 20; TEMP 36.5; O2SAT 99; BMI 33.1
[2024-09-21] MEDS: 0.9% Normal Saline (1000mL) 1,000 ML 999 ML IV (15:29)
[2024-09-21] MEDS: Ondansetron 4 MG/2 ML Vial IV (15:29)
[2024-09-21 15:45] LABS: Absolute Lymphocyte Count 1.16 X10^3/uL (0.83-4.51); Absolute Neutrophil Count 4.8 X10^3/uL (2.0-7.7); Basophil# 0.05 X10^3/uL; Basophil% 0.7 % (0-1); Eosinophil# 0.05 X10^3/uL; Eosinophils% 0.7 % (0-5); Hematocrit 34.9 % (37-47); Hemoglobin 11.6 g/dL (12.0-15.0); Lymphocyte # 1.16 X10^3/ul (0.83-4.51); Lymphocyte % 17.3 % (19-41); Mean Corp Hgb Conc 33.2 g/dL (32-36); Mean Corpuscular Hgb 32.1 pg (27.0-32.0); Mean Corpuscular Volume 96.7 fL (81-99); Mean Platelet Vol. 8.8 fl (6.2-12.0); Monocyte# 0.61 X10^3/uL; Monocyte% 9.1 % (0-10); NRBC Flagged by Analyzer 0 % (0-5); Neutrophil % 71.8 % (47-70); Platelet Count 290 K/mm3 (150-450); RBC Distribution Width CV 13.2 % (11.6-14.6); RBC Distribution Width SD 47.1 fl (35.1-43.9); Red Blood Count 3.61 M/mm3 (4.2-5.4); White Blood Count 6.7 K/mm3 (4.4-11.0)
[2024-09-21 16:04] LABS: ALB/GLOB Ratio 1.1 RATIO (0.9-2.4); AST(SGOT) 15 U/L (15-37); Alanine Aminotransfer ALT/SGPT 31 U/L (13-56); Albumin, Serum 3.4 g/dL (3.2-5.0); Alkaline Phosphatase 59 U/L (45-117); Anion Gap 8 (5-15); BUN 21 mg/dL (7-18); BUN/Creat Ratio 25.5 RATIO (10-20); Calcium,Total 8.9 mg/dL (8.5-10.1); Chloride 105 mmol/L (98-107); Creatinine, Serum 0.82 mg/dL (0.55-1.02); EST Glomerular Filtration Rate 70 mL/min (>60); Est Glom Filt Rate - Afr Amer 84 mL/min (>60); Estimated Creatinine Clearance 43.54 ml/min; Globulin 3.1 g/dL (2.2-4.2); Glucose 171 mg/dL (74-106); Lipase 31 U/L (13-75); Protein, Total 6.5 g/dL (6.4-8.2); Sodium Level 138 mmol/L (136-145); Troponin-I HS (w/2H Reflex) 13 pg/mL (3.0-54.0)
[2024-09-21 16:24] LABS: Mucous, Urine 0 SEEN /hpf (<or=2+); Red Blood Cells-Urine 0 SEEN /hpf (0-5)
[2024-09-21 16:25] LABS: Color, Urine Yellow (Yellow); Glucose, Dipstick Normal (Normal); Ketone-Dipstick Negative (Negative); Leukocyte Esterase-Dipstick 25 /ul (Negative); Nitrite-Dipstick Negative (Negative); Occult Blood-Urine Negative /ul (Negative); Protein-Dipstick Negative (Negative); Urine Bilirubin Dipstick Negative (Negative); Urine Clarity Sl. Cloudy (Clear); Urine Urobilinogen Normal (Normal)
[2024-09-21 16:40] LABS: Squamous Epithelial Cells - UA 0-5 SEEN /hpf (5-10); White Blood Cells 25-50 SEEN /hpf (0-5)
[2024-09-21 16:41] LABS: Bacteria 2+ /hpf (None Seen)
[2024-09-21 17:00] VITALS: BP 155/53; PULSE 61; RESP 11
[2024-09-21 17:37] LABS: Reflex Troponin-HS? (from REC) Y
[2024-09-21 18:28] LABS: Troponin-I HS 16 pg/mL (3.0-54.0)
[2024-09-21 18:51] VITALS: BP 166/67; PULSE 67; RESP 16; O2SAT 94
== END 2024-09-21 19:04 | disposition home or self-care (01) ==
PROVIDERS: Nurse Practitioner; Emergency Provider Emergency Medicine; PCP Internal Medicine; Referring Provider Emergency Medicine; Visit Provider Emergency Medicine
DX: R55 Syncope and collapse (principal); J44.9 Chronic obstructive pulmonary disease, unspecified; E11.9 Type 2 diabetes mellitus without complications; Z79.4 Long term (current) use of insulin; R11.2 Nausea with vomiting, unspecified; R07.9 Chest pain, unspecified; I25.10 Atherosclerotic heart disease of native coronary artery without angina pectoris; Z87.891 Personal history of nicotine dependence; I10 Essential (primary) hypertension; E78.5 Hyperlipidemia, unspecified; Z79.02 Long term (current) use of antithrombotics/antiplatelets; Z79.82 Long term (current) use of aspirin; Z79.899 Other long term (current) drug therapy; Z79.51 Long term (current) use of inhaled steroids; Z95.5 Presence of coronary angioplasty implant and graft
CPT/HCPCS: 71045; 80053; 81001; 83690; 84484; 85025; 87077; 87086; 87088; 87186; 93005; 96361; 96374; 99285; J7030; A4216; J2405

== ENCOUNTER → 2024-09-25 | Outpatient (CLI) | payer MEDICARE, SELFPAY ==
[2024-09-25 14:51] LABS: Mucous, Urine 0 SEEN /hpf (<or=2+); Red Blood Cells-Urine 0 SEEN /hpf (0-5)
[2024-09-25 17:24] LABS: Color, Urine Yellow (Yellow); Glucose, Dipstick Normal (Normal); Ketone-Dipstick Negative (Negative); Leukocyte Esterase-Dipstick 100 /ul (Negative); Nitrite-Dipstick Positive (Negative); Occult Blood-Urine 10 /ul (Negative); Protein-Dipstick Negative (Negative); Urine Bilirubin Dipstick Negative (Negative); Urine Clarity Clear (Clear); Urine Urobilinogen Normal (Normal); Urine pH 6.5 (5.0 - 8.0)
[2024-09-25 17:54] LABS: Bacteria 2+ /hpf (None Seen); Squamous Epithelial Cells - UA 0-5 SEEN /hpf (5-10); White Blood Cells 5-10 SEEN /hpf (0-5)
== END | disposition home or self-care (01) ==
LOC: LABSPEC 12:51
PROVIDERS: PCP Internal Medicine; Referring Provider Internal Medicine; Visit Provider Internal Medicine
DX: N39.0 Urinary tract infection, site not specified (principal)
CPT/HCPCS: 81001; 87077; 87086; 87088; 87186

== ENCOUNTER → 2024-10-23 | Outpatient (CLI) | payer MEDICARE, SELFPAY ==
--- NOTE | 2024-10-23 10:49 | RAD_ITS ---
STUDY: X-RAY CHEST REASON FOR EXAM: Female, 88 years old. COUGH TECHNIQUE: PA and lateral views of the chest. COMPARISON: 09/21/2024 FINDINGS: The lungs are clear and expanded. There is no demonstrated pleural abnormality. Normal size heart. Normal mediastinum and ronda. Normal visualized pulmonary arteries. Normal visualized aortic arch and descending thoracic aorta. There is a dextroscoliosis of the thoracic spine. Normal visualized ribs, clavicles, and shoulders. There is no demonstrated abnormality of the visualized soft tissue structures of the upper abdomen. RAD/Chest PA and Lateral IMPRESSION: No active disease. Electronically Signed: Cecilio Acuna MD at 12:03 [facility] ,
== END | disposition home or self-care (01) ==
LOC: MTRAD 10:42
PROVIDERS: PCP Internal Medicine; Referring Provider Physician Assistant; Visit Provider Physician Assistant
DX: R05.9 Cough, unspecified (principal)
CPT/HCPCS: 71046

== ENCOUNTER → 2025-01-08 | Outpatient (CLI) | payer MEDICARE, SELFPAY ==
[2025-01-08 15:22] LABS: Absolute Lymphocyte Count 1.06 X10^3/uL (0.83-4.51); Absolute Neutrophil Count 5.1 X10^3/uL (2.0-7.7); Basophil# 0.04 X10^3/uL; Basophil% 0.6 % (0-1); Eosinophil# 0.08 X10^3/uL; Eosinophils% 1.2 % (0-5); Hemoglobin 12.2 g/dL (12.0-15.0); Lymphocyte # 1.06 X10^3/ul (0.83-4.51); Lymphocyte % 15.4 % (19-41); Mean Corp Hgb Conc 31.3 g/dL (32-36); Mean Corpuscular Hgb 31.2 pg (27.0-32.0); Mean Corpuscular Volume 99.7 fL (81-99); Mean Platelet Vol. 8.9 fl (6.2-12.0); Monocyte# 0.63 X10^3/uL; Monocyte% 9.1 % (0-10); NRBC Flagged by Analyzer 0 % (0-5); Neutrophil # 5.05 X10^3/uL (2.7-7.7); Neutrophil % 73.3 % (47-70); Platelet Count 283 K/mm3 (150-450); RBC Distribution Width CV 13.5 % (11.6-14.6); RBC Distribution Width SD 49.5 fl (35.1-43.9); Red Blood Count 3.91 M/mm3 (4.2-5.4); White Blood Count 6.9 K/mm3 (4.4-11.0)
[2025-01-08 16:08] LABS: Anion Gap 12 (5-15); BUN 22 mg/dL (4-19); BUN/Creat Ratio 31.3 RATIO (10-20); Calcium 9.7 mg/dL (7.6-11.0); Carbon Dioxide 25.8 mmol/L (22.0-29.0); Chloride 100 mmol/L (96-108); Creatinine, Serum 0.7 mg/dL (0.6-1.0); EST Glomerular Filtration Rate 83 (>60); Glucose 162 mg/dL (70-99); Potassium 4.4 mmol/L (3.3-5.1); Sodium Level 138 mmol/L (133-145)
== END | disposition home or self-care (01) ==
LOC: BIMLAB 11:35
PROVIDERS: PCP Internal Medicine; Referring Provider Internal Medicine; Visit Provider Internal Medicine
DX: I10 Essential (primary) hypertension (principal)
CPT/HCPCS: 36415; 80048; 85025

== ENCOUNTER → 2025-02-12 | Outpatient (CLI) | payer MEDICARE, SELFPAY | END | disposition home or self-care (01) | LOC: LABSPEC 10:56 | PROVIDERS: PCP Internal Medicine; Referring Provider Physician Assistant; Visit Provider Physician Assistant | DX: R30.0 Dysuria (principal) | CPT/HCPCS: 87086; 87088; 87186 ==

== ENCOUNTER → 2025-04-09 | Outpatient (CLI) | payer MEDICARE, SELFPAY ==
[2025-04-09 15:03] LABS: Mucous, Urine 0 SEEN /hpf (<or=2+)
[2025-04-09 21:18] LABS: Color, Urine Yellow (Yellow); Glucose, Dipstick Normal (Normal); Ketone-Dipstick 5 mg/dl (Negative); Leukocyte Esterase-Dipstick 500 /ul (Negative); Nitrite-Dipstick Positive (Negative); Occult Blood-Urine 10 /ul (Negative); Protein-Dipstick 30 mg/dl (Negative); Urine Bilirubin Dipstick Negative (Negative); Urine Clarity Cloudy (Clear); Urine Urobilinogen Normal (Normal); Urine pH 6.5 (5.0 - 8.0)
[2025-04-09 21:46] LABS: Bacteria 4+ /hpf (None Seen); Red Blood Cells-Urine 0-5 SEEN /hpf (0-5); Squamous Epithelial Cells - UA 0-5 SEEN /hpf (5-10); White Blood Cells 10-25 SEEN /hpf (0-5)
== END | disposition home or self-care (01) ==
LOC: LABSPEC 14:23
PROVIDERS: PCP Internal Medicine; Referring Provider Internal Medicine; Visit Provider Internal Medicine
DX: N30.01 Acute cystitis with hematuria (principal)
CPT/HCPCS: 81001; 87077; 87086; 87088; 87186

== ENCOUNTER → 2025-10-01 | Outpatient (CLI) | payer MEDICARE, SELFPAY ==
[2025-10-01 09:47] LABS: Hematocrit 38.1 % (37-47); Hemoglobin 12.6 g/dL (12.0-15.0); Immature Granulocytes Count 0.040 X10^3/uL (0.0-0.0); Mean Corp Hgb Conc 33.1 g/dL (32-36); Mean Corpuscular Volume 96.7 fL (81-99); Mean Platelet Vol. 8.5 fl (6.2-12.0); NRBC Flagged by Analyzer 0 % (0-5); Platelet Count 252 K/mm3 (150-450); RBC Distribution Width CV 12.8 % (11.6-14.6); RBC Distribution Width SD 45.9 fl (35.1-43.9); Red Blood Count 3.94 M/mm3 (4.2-5.4); White Blood Count 6.7 K/mm3 (4.4-11.0)
[2025-10-01 10:22] LABS: AST(SGOT) 21 U/L (<=31); Alanine Aminotransfer ALT/SGPT 17 U/L (<=34); Albumin, Serum 4.1 g/dL (3.4-4.8); Alkaline Phosphatase 58 U/L (35-104); Anion Gap 8 (5-15); BUN 12 mg/dL (4-19); BUN/Creat Ratio 17.3 RATIO (10-20); Calcium,Total 9.5 mg/dL (7.6-11.0); Carbon Dioxide 27.9 mmol/L (21.0-32.0); Chloride 100 mmol/L (98-108); Cholesterol 168 mg/dL (<=200); Globulin 2.7 g/dL (2.2-4.2); Glucose 235 mg/dL (70-99); Low Density Lipoprotein Calc. 86 mg/dL; Potassium 4.3 mmol/L (3.3-5.1); Triglycerides 144 mg/dL; Very Low Density Lipoprotein 29 mg/dL (5-40); cholesterol:hdl ratio screen 2.94
== END | disposition home or self-care (01) ==
PROVIDERS: PCP Internal Medicine; Referring Provider Internal Medicine; Visit Provider Internal Medicine
DX: E78.5 Hyperlipidemia, unspecified (principal); I10 Essential (primary) hypertension
CPT/HCPCS: 36415; 80053; 80061; 85025